=== PATIENT | male | born 1950 | race Caucasian/White ===

== ENCOUNTER 2017-01-14 23:29 | Emergency (ER) | payer MEDICARE, BC ==
[2017-01-15 02:48] LABS: Hematocrit 51 % (42-52); Hemoglobin 17.8 g/dl (14.0-18.0); Mean Corpuscular HGB Conc 35 g/dl (31-36); Mean Corpuscular Hemoglobin 35 pg (27-31); Mean Corpuscular Volume 101 fL (80-94); Mean Platelet Volume 10 um3 (7.4-10.4); Red Blood Count 5.06 10^6/ul (4.0-5.4); Red Cell Distribution Width 13 % (10.5-15); White Blood Count 7.1 10^3/ul (3.5-10.8)
[2017-01-15 02:54] LABS: Comments Flag Yes
[2017-01-15 02:55] LABS: Add Diff/Slide Review? Slide Review Added
[2017-01-15 03:06] LABS: Albumin 4.2 g/dL (3.2-5.2); BUN/Creatinine Ratio 17.4 (8-20); EGFR Non-African American 115.1 (>60); Globulin 2.9 g/dL (2-4); Potassium 4.1 mmol/L (3.5-5.0); Total Bilirubin 1.3 mg/dL (0.2-1.0); Total Protein 7.1 g/dL (6.4-8.9)
[2017-01-15] MEDS ORDERED: Ondansetron ODT TAB* 4 MG SL ONE (03:44)
[2017-01-15] MEDS ORDERED: NS 0.9% 500 ML* 500 ML IV ONE (04:06)
[2017-01-15 04:50] LABS: Albumin 3.9 g/dL (3.2-5.2); Calcium 8.6 mg/dL (8.6-10.3); EGFR African American 167.4 (>60); EGFR Non-African American 130.2 (>60); Globulin 2.5 g/dL (2-4); Potassium 3.5 mmol/L (3.5-5.0); Total Bilirubin 1.3 mg/dL (0.2-1.0); Total Protein 6.4 g/dL (6.4-8.9)
[2017-01-15] MEDS ORDERED: Ondansetron ODT TAB* 4 MG ONE (05:08)
[2017-01-15 05:12] VITALS: BP 119/61
[2017-01-15] MEDS ORDERED: Ondansetron ODT TAB* 4 MG SL PRN (05:13)
--- NOTE | 2017-01-20 12:01 | ED ---
Lanette Porter Thomas, scribed for Joselin Juarez MD on 01/15/17 at 0543 . GI/ HPI - HPI Summary HPI Summary: The pt is a 66 y/o male presenting to the ED c/o nausea and vomiting that began 16 hours ago but significantly worsened 10 hours ago. His last BM was this morning. Pt denies abd pain, CP, SOB, leg swelling, PEREZ, blurry vision, double vision, fever, chills, ear ache, neck pain, back pain, bloody stools dysuria, rashes, bruises, anxiety, and depression. He does not have a history of diabetes mellitus, although his glucose was measured at 323. - History of Current Complaint Chief Complaint: EDAbdPain Time Seen by Provider: 01/15/17 03:00 Stated Complaint: NAUSEA/VOMITING Hx Obtained From: Patient Onset/Duration: Started Hours Ago - 16 hours ago, Still Present, Worse Since - 10 hours ago Timing: Constant Current Severity: Moderate Pain Intensity: 0 Associated Signs and Symptoms: Positive: Other: - Nausea; NEGATIVE: abd pain, CP , SOB, leg swelling, PEREZ, blurry vision, double vision, fever, chills, ear ache, neck pain, back pain, bloody stools, dysuria, rashes, brsuises, anxiety, depression Aggravating Factor(s): Nothing Alleviating Factor(s): Nothing - Allergy/Home Medications Allergies/Adverse Reactions: Allergies Allergy/AdvReac Type Severity Reaction Status Date / Time No Known Allergies Allergy Verified 01/14/17 23:37 PMH/Surg Hx/FS Hx/Imm Hx Previously Healthy: No Endocrine/Hematology History: Denies: Hx Anticoagulant Therapy, Hx Diabetes, Hx Thyroid Disease Cardiovascular History: Denies: Hx Hypertension, Hx Pacemaker/ICD Respiratory History: Denies: Hx Asthma History: Denies: Hx Renal Disease Sensory History: Reports: Hx Cataracts - BILATERAL, Hx Contacts or Glasses - GLASSES, Hx Glaucoma - BILATERAL, STARTED ON DROPE 01/14/15 Opthamlomology History: Reports: Hx Cataracts - BILATERAL, Hx Contacts or Glasses - GLASSES, Hx Glaucoma - BILATERAL, STARTED ON DROPE 01/14/15 Neurological History: Denies: Hx Seizures Psychiatric History: Denies: Hx Substance Abuse - Surgical History Surgery Procedure, Year, and Place: 9 [facility]. 1965 APPENDECTOMY OPAL Hx Anesthesia Reactions: No Infectious Disease History: No Infectious Disease History: Denies: Hx Hepatitis, Hx Human Immunodeficiency Virus (HIV), Traveled Outside the [place] in Last 30 Days - Family History Known Family History: Positive: Other - Patient denies relevant FHx - Social History Alcohol Use: Daily Alcohol Amount: 6-8 BEERS MOST DAYS Substance Use Type: Reports: None Smoking Status (MU): Former Smoker Type: Cigarettes Amount Used/How Often: 2PPD 30YRS Length of Time of Smoking/Using Tobacco: 30 YRS Have You Smoked in the Last Year: No Review of Systems Negative: Fever, Chills Negative: Blurred Vision, Diplopia Negative: Sore Throat Negative: Chest Pain Negative: Shortness Of Breath, Cough Positive: Vomiting, Nausea. Negative: Abdominal Pain, Diarrhea, Other - bloody stools Negative: dysuria, hematuria Negative: Myalgia Negative: Rash, Bruising Negative: Headache Negative: Anxious, Depressed All Other Systems Reviewed And Are Negative: No Physical Exam - Summary Physical Exam Summary: Appearance: Alert, conversive, nontoxic appearing Skin: Warm, dry, no mottling, no rashes, no contusions HEENT: EOMI, PERRL, moist mucous membranes Neck: No masses on the neck, supple Respiratory: Clear to auscultation, breath sounds present, no rales, no rhonchi , no wheezes Cardiovascular: RRR, pulses are symmetrical in both lower and upper extremities Abdomen: Soft, non-tender Bowel Sounds: Present Musculoskeletal: No CVA tenderness, no obvious deformity, moving all extremities in a grossly normal manner Neurological: A&Ox3, CN II-XII Intact, moving all extremities symmetrically Psychiatric: Normal affect and mood Triage Information Reviewed: Yes Vital Signs On Initial Exam: Initial Vitals Temp Pulse Resp BP Pulse Ox 97.7 F 78 16 147/69 93 01/14/17 23:35 01/14/17 23:35 01/14/17 23:35 01/14/17 23:35 01/14/17 23:35 Vital Signs Reviewed: Yes - Edward Coma Scale Coma Scale Total: 15 Diagnostics - Vital Signs Vital Signs Temp Pulse Resp BP Pulse Ox 01/15/17 03:04 83 95 01/15/17 03:02 150/87 01/15/17 02:37 97.9 F 81 16 137/62 94 01/14/17 23:35 97.7 F 78 16 147/69 93 - Laboratory Lab Results: Lab Results 01/15/17 01/15/17 01/15/17 Range/Units 02:35 02:35 02:35 WBC 7.1 (3.5-10.8) 10^3/ul RBC 5.06 (4.0-5.4) 10^6/ul Hgb 17.8 (14.0-18.0) g/dl Hct 51 (42-52) % MCV 101 H (80-94) fL MCH 35 H (27-31) pg MCHC 35 (31-36) g/dl RDW 13 (10.5-15) % Plt Count 120 L (150-450) 10^3/ul MPV 10 (7.4-10.4) um3 Neut % (Auto) 85.8 H (38-83) % Lymph % (Auto) 11.8 L (25-47) % [place] % (Auto) 2.0 (1-9) % Eos % (Auto) 0 (0-6) % Baso % (Auto) 0.4 (0-2) % Absolute Neuts (auto) 6.1 (1.5-7.7) 10^3/ul Absolute Lymphs (auto) 0.8 L (1.0-4.8) 10^3/ul Absolute Monos (auto) 0.1 (0-0.8) 10^3/ul Absolute Eos (auto) 0 (0-0.6) 10^3/ul Absolute Basos (auto) 0 (0-0.2) 10^3/ul Absolute Nucleated RBC 0.01 10^3/ul Nucleated RBC % 0.1 Sodium 134 (133-145) mmol/L Potassium 4.1 (3.5-5.0) mmol/L Chloride 96 L (101-111) mmol/L Carbon Dioxide 29 (22-32) mmol/L Anion Gap 9 (2-11) mmol/L BUN 12 (6-24) mg/dL Creatinine 0.69 (0.67-1.17) mg/dL Est GFR ( Amer) 148.0 (>60) Est GFR (Non-Af Amer) 115.1 (>60) BUN/Creatinine Ratio 17.4 (8-20) Glucose 323 H (70-100) mg/dL Lactic Acid 1.5 (0.5-2.0) mmol/L Calcium 9.0 (8.6-10.3) mg/dL Total Bilirubin 1.30 H (0.2-1.0) mg/dL AST 21 (13-39) U/L ALT 32 (7-52) U/L Alkaline Phosphatase 85 (34-104) U/L Total Protein 7.1 (6.4-8.9) g/dL Albumin 4.2 (3.2-5.2) g/dL Globulin 2.9 (2-4) g/dL Albumin/Globulin Ratio 1.4 (1-3) Result Diagrams: 01/15/17 02:35 01/15/17 04:20 Lab Statement: Any lab studies that have been ordered have been reviewed, and results considered in the medical decision making process. Re-Evaluation - Re-Evaluation First Eval Re-Evaluation Time: 05:10 Change: Improved Comment: He is up and walking and read to be discharged. GIGU Course/Dx - Course Assessment/Plan: Patient presents with nausea and vomiting. He was given a Zofran prescription and discharged home. - Diagnoses Provider Diagnoses: Nausea & vomiting Discharge - Discharge Plan Condition: Stable Disposition: HOME Prescriptions: Ondansetron ODT TAB* [Zofran 4 MG Odt TAB*] 4 mg PO Q8H PRN #20 tab.odt PRN Reason: Nausea Patient Education Materials: Acute Nausea and Vomiting (ED) Referrals: Non Staff,Doctor [Primary Care Provider] - Additional Instructions: Take the zofran as instructed. return if worse or any new symptoms. It is important to follow up with your primary care physician. The documentation as recorded by the Lanette ramirez Thomas accurately reflects the service I personally performed and the decisions made by , Joselin Juarez MD.
== END 2017-01-15 05:26 | disposition home or self-care (01) ==
LOC: ED 23:29
DX: R11.2 Nausea with vomiting, unspecified (principal)
CPT/HCPCS: 36415; 80053; 83605; 85025; 99284; A9270-GY

== ENCOUNTER → 2018-11-14 05:46 | Day surgery (SDC) | payer MEDICARE, BC ==
[~2018-11-14 05:46] MED LIST: Acetaminophen TAB* 325 MG PO PRN; Buffered Lidocaine 1% SYRIN* 1 ML/SYRINGE INTRADERM ONE; Famotidine IV* 10 MG/ML 2 ML (20 mg) IV ONE; Famotidine IV* 10 MG/ML 2 ML (20 mg) ONE; Ketorolac INJ* 30 MG/ML 1 ML VIAL ONE; Lactated Ringers 1000 ML Bag* 1,000 ML IV SCH; Lidocaine 1% w EPI 1:100,000* MDV 20 ML VIAL ONE; Lidocaine 2% PF * 5 ML VIAL ONE; Midazolam* 1 MG/ML 5 ML VIAL (5 MG) ONE; Naloxone* 0.4 MG/ML 1 ML VIAL IV PRN; Ondansetron INJ* 2 MG/ML VIAL ONE; Propofol* 10 MG/ML 20 ML BTL ONE; ceFAZolin 2 GM in NS PREMIX(*) 2 GM/100 ML BAG IVPB ONE; fentaNYL* 50 MCG/ML 2 ML VIAL (100 MCG VIAL) ONE
--- NOTE | 2018-11-14 08:23 | OP ---
Operative Report - Blank - Operative Report Date of Operation: 11/14/18 Note: Pre-OP Diagnoses: rectal cancer Post-op Diagnosis: same Procedure: Insertion of powerport Surgeon: Eliezer Asst: none Anethesia: local, YVES Sharpe EBL: minimal IVF: 800cc LR Specimen: none Drains: none 8Fr single lumen power port via R SCV
[2018-11-14 09:12] VITALS: BP 121/56
--- NOTE | 2018-11-14 11:00 | OP ---
CC: Dr. Ne Roberson; Kevin King NP * DATE OF OPERATION: 11/14/18 - [facility] DATE OF : 52 SURGEON: Dr. Martins. PRECINCT POLICE SERGEANT: None. ANESTHESIOLOGIST: Dr. Sharpe. ANESTHESIA: Local MAC anesthesia. PRE-OP DIAGNOSIS: Rectal cancer. POST-OP DIAGNOSIS: Rectal cancer. OPERATIVE PROCEDURE: Insertion of PowerPort. ESTIMATED BLOOD LOSS: Minimal blood loss. FLUIDS: 800 cc of crystalloid fluid given. SPECIMEN: None. IMPLANTS: 8-Namibian PowerPort placed via the right subclavian vein. DESCRIPTION OF PROCEDURE: The patient was identified in the preoperative area. Consent was signed. He was marked, brought to the operating room and placed on the operating table in the supine position. Preoperative antibiotics were given. Sequential devices were placed on bilateral lower extremities. General sedation was given and the patient's right upper chest and neck were prepped and draped in standard surgical fashion. Time-out was performed. After injection of lidocaine infraclavicularly on the right, we tried to access the subclavian vein. At first, we did enter in to an artery. Needle was removed, and we then inserted the needle again without achieving access in the appropriate positioning, and finally on the third attempt, we were able to accesses the subclavian vein. Wire was inserted and appropriately positioned in the superior vena cava as noted on fluoroscopy. We then made an incision inferior to the wire, made a pocket for the PowerPort. We then ivan the wire out through this separate incision, dilated the vein under fluoroscopy and placed the split-away catheter in. The 8-Namibian tubing was inserted and cut to size, assuring its sizing under fluoroscopy in the appropriate positioning. It was then attached to the pre-flushed PowerPort along with the hub and then placed in the pocket and sutured laterally and medially. The wound was irrigated and reapproximated with 3-0 Vicryl followed by 4-0 Monocryl subcuticular sutures. Steri-Strips and sterile dressing were applied. We did inject heparinized saline into the port after aspiration of blood. The patient tolerated the procedure well, and was transferred back in stable condition. [id number]/[facility] #: [id number] [facility]
== END | disposition home or self-care (01) ==
LOC: OR 05:46
PROVIDERS: ATTEND Surgery
DX: C20 Malignant neoplasm of rectum (principal); E11.9 Type 2 diabetes mellitus without complications; Z87.891 Personal history of nicotine dependence; E78.5 Hyperlipidemia, unspecified
CPT/HCPCS: 71045; 76000; C1788; J0690; J1642; J1885; J2250; J2405; J2704; J3010

== ENCOUNTER 2018-12-27 15:39 | Inpatient (IN) | payer MEDICARE, BC ==
[2018-12-27] MEDS ORDERED: Acetaminophen TAB* 325 MG PO PRN (16:47)
--- OUTSIDE RECORDS SUMMARY | 2018-12-27 16:51 | XMS REPORT | Continuity of Care Document ---
:1950 External Reference #:[id number] Author Name Tu Martins MD, FACS (transmitted by agent of provider She Proctor) Address [address] [place] [address] Care Team Providers Name Role Phone Georgina Childress MD - Internal Medicine Care Team Information Supervisor Body Assembly Problems Active Problems Provider Date Type 2 diabetes mellitus Kevin King NP Onset: 05/11/2017 Hyperlipidemia Kevin King NP Onset: 05/11/2017 Social History Type Date Description Comments Sex Unknown ETOH Use Currently consumes 1-2 drinks a week alcohol Tobacco Use Start: Unknown End: Patient is a former Quit 2006 Unknown smoker Recreational Drug Use Denies Drug Use Smoking Status Reviewed: 11/12/18 Patient is a former Quit 2006 smoker Exercise Type/Frequency Does not exercise Allergies, Adverse Reactions, Alerts Description No Known Drug Allergies Medications Active Medications SIG Qnty Indications Ordering Date Provider Atorvastatin Calcium Take 1 Tablet AT 90tabs E78.5 Kevin King NP 2017 Bedtime 20mg Tablets Tramadol HCL 1-2 tablets by mouth Unknown 50mg every 6 hours as Tablets needed pain Miralax take 1 packet daily Unknown [id number] Packet as needed for constipation Immunizations CPT Code Status Date Vaccine Reaction Lot # [id number] Given 05/09/2018 Pneumonia Vaccine No immediate reaction [id number] Given 05/08/2017 Pneumococcal Conjugate No immediate [id number] Vaccine 13 Valent For reaction...jh Intramuscular Use 95660 Given 02/10/2017 Influenza Virus Vaccine, [id number] Quadrivalent, Split, Preservative Free Vital Signs Date Vital Result Comment 11/12/2018 2:23pm Height 69.25 inches 5'9.25" Weight 174.00 lb Heart Rate 83 /min BP Systolic Sitting 98 mmHg BP Diastolic Sitting 50 mmHg Respiratory Rate 14 /min Body Temperature 97.2 F BMI (Body Mass Index) 25.5 kg/m2 05/09/2018 9:38am Height 69.25 inches 5'9.25" Weight 185.50 lb Heart Rate 74 /min BP Systolic 126 mmHg BP Diastolic 70 mmHg Body Temperature 97.0 F O2 % BldC Oximetry 97 % BMI (Body Mass Index) 27.2 kg/m2 Results Test Date Facility Test Result H/L Range Note CBC Auto 11/09/2018 [facility] White Blood 4.5 10^3/uL Normal 3.5-10.[address] [place] [address] [phone] Red Blood Count 4.04 10^6/uL Low 4.18-5.48 Hemoglobin 12.2 g/dL Low 14.0-18.0 Hematocrit 36 % Low 42-52 Mean Corpuscular Volume 89 fL Normal 80-94 Mean Corpuscular Hemoglobin 30 pg Normal 27-31 Mean Corpuscular HGB Conc 34 g/dL Normal 31-36 Red Cell Distribution Width 15 % Normal 10-15 Platelet Count 114 10^3/uL Low 150-450 Mean Platelet Volume 10.8 fL High 7.4-10.4 Abs Neutrophils 2.9 10^3/uL Normal 1.5-7.7 Abs Lymphocytes 1.0 10^3/uL Normal 1.0-4.8 Abs Monocytes 0.4 10^3/uL Normal 0-0.8 Abs Eosinophils 0.1 10^3/uL Normal 0-0.6 Abs Basophils 0.0 10^3/uL Normal 0-0.2 Abs Nucleated RBC 0.0 10^3/uL Granulocyte % 65.5 % Lymphocyte % 23.4 % Monocyte % 8.1 % Eosinophil % 2.1 % Basophil % 0.9 % Nucleated Red Blood Cells % 0.1 Comp Metabolic 11/09/2018 [facility] Sodium 140 mmol/L Normal 135-[address] [place] [address] [phone] Potassium 3.8 mmol/L Normal 3.5-5.0 Chloride 102 mmol/L Normal 101-111 Co2 Carbon Dioxide 32 mmol/L Normal 22-32 Anion Gap 6 mmol/L Normal 2-11 Calcium 8.6 mg/dL Normal 8.6-10.3 Albumin 3.9 g/dL Normal 3.2-5.2 Total Bilirubin 0.60 mg/dL Normal 0.2-1.0 Glucose 139 mg/dL High 70-100 Blood Urea Nitrogen 16 mg/dL Normal 6-24 Creatinine 0.77 mg/dL Normal 0.67-1.17 BUN/Creatinine Ratio 20.8 High 8-20 Total Protein 5.9 g/dL Low 6.4-8.9 Globulin 2.0 g/dL Normal 2-4 Albumin/Globulin Ratio 2.0 Normal 1-3 Alkaline Phosphatase 95 U/L Normal 34-104 Alt 17 U/L Normal 7-52 Ast 13 U/L Normal 13-39 Egfr Non- 100.8 >60 Egfr 121.9 >60 1 Iron & Iron Binding 11/09/2018 [facility] Iron 24 g/dL Low 50-[address] [place] [address] [phone] Unsaturated Iron Binding < 376 g/dL Total Iron Binding Capacity 391 g/dL Normal 250-450 Transferrin 279 mg/dL Normal 203-362 % Iron Saturation 6 % Low 15-55 Laboratory 11/09/2018 [facility] Carcinoembryonic 38.0 High 0.1-5.0 2 test finding [address] Antigen Cea ng/[place] [address] [phone] Ferritin 9.1 ng/mL Low 24-336 Laboratory test 10/19/2018 [facility] Hemoglobin A1c 5.1 % Normal 4.0-5.[address] (Glyco HGB) [place] [address] [phone] Lipid Profile 10/19/2018 [facility] Triglycerides 69 4 (Trig/Chol/HDL) [address] mg/[place] [address] [phone] Cholesterol 136 mg/dL 5 HDL Cholesterol 66.7 mg/dL 6 LDL Cholesterol 56 mg/dL 7 1 Because ethnic data is not always readily available, this report includes an eGFR for both -Americans and non- Americans. The National Kidney Disease Education Program (NKDEP) does not endorse the use of the MDRD equation for patients that are not between the ages of 18 and 70, are , have extremes of body size, muscle mass, or nutritional status, or are non- or non-. According to the National Kidney Foundation, irrespective of diagnosis, the stage of the disease is based on the level of kidney function: Stage Description GFR(mL/min/1.73 m(2)) 1 Kidney damage with normal or decreased GFR 90 2 Kidney damage with mild decrease in GFR 60-89 3 Moderate decrease in GFR 30-59 4 Severe decrease in GFR 15-29 5 Kidney failure <15 (or dialysis) 2 Nonsmokers: < 2.9 ng/mL Some smokers may have elevated CEA, usually <5.0 ng/mL. Serum markers are not specific for malignancy, and values may vary by method. The testing method is an immunoenzymatic assay coal trammer by Ruby Ribbon performed on Ruby Ribbon DXI 600. Do not interpret serum CEA levels as absolute evidence of the presence or the absence of malignant disease. Use serum CEA in conjunction with information from the clinical evaluation of the patient and other diagnostic procedures. 3 Therapeutic target for the treatment of diabetes mellitus patients is <7% HBA1C, and in selective patients <6.0%. Please refer to [place] [employer] diabetic care guidelines for further information. 4 Desirable: <150 Borderline High: 150-199 High: 200-499 Very High: >500 5 Desirable: <200 Borderline High: 200-239 High: >239 6 Low: <40 Desirable: 40-60 High: >60 7 Desirable: <100 Near Optimal: 100-129 Borderline High: 130-159 High: 160-189 Very High: >189 Procedures Description No Information Available Medical Devices Description No Information Available Encounters Description No Information Available Assessments Date Code Description Provider 11/12/2018 C20 Malignant neoplasm of rectum Tu Martins MD, FACS Plan of Treatment Future Appointment(s):11/22/2018 11:30 am - Tu Martins MD, FACS at [facility]11/14/2018 7:30 am - Tu Martins MD, FACS at [facility]11/12/2018 - Tu Martins MD, [id number] Malignant neoplasm of rectumFollow up:operating room Functional Status Description No Information Available Mental Status Description No Information Available Referrals Refer to Reason for Referral Status Appt Date Ne Roberson MD [address] [place] [phone]
--- OUTSIDE RECORDS SUMMARY | 2018-12-27 16:51 | XMS REPORT | Continuity of Care Document ---
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 Active Problems Provider Date Type 2 diabetes mellitus Kevin King NP Onset: 05/11/2017 Hyperlipidemia Kevin King NP Onset: 05/11/2017 Social History Type Date Description Comments Sex Unknown ETOH Use Currently consumes 1-2 drinks a week alcohol Tobacco Use Start: Unknown End: Patient is a former Quit 2006 Unknown smoker Recreational Drug Use Denies Drug Use Smoking Status Reviewed: 11/22/18 Patient is a former Quit 2006 smoker [...] Code Status Date Vaccine Reaction Lot # [id number] Given 05/09/2018 Pneumonia Vaccine No immediate reaction [id number] Given 05/08/2017 Pneumococcal Conjugate No immediate [id number] Vaccine 13 Valent For reaction...jh Intramuscular Use [id number] Given 02/10/2017 Influenza Virus Vaccine, [id number] Quadrivalent, Split, Preservative Free Vital Signs Date Vital Result Comment 11/22/2018 11:25am Heart Rate 84 /min BP Systolic 138 mmHg BP Diastolic 64 mmHg Respiratory Rate 16 /min Body Temperature 97.2 F 11/12/2018 2:23pm Height 69.25 inches 5'9.25" Weight 174.00 lb Heart Rate 83 /min BP Systolic Sitting 98 mmHg BP Diastolic Sitting 50 mmHg Respiratory Rate 14 /min Body Temperature 97.2 F BMI (Body Mass Index) 25.5 kg/m2 Results Test Date Facility Test Result H/L Range Note Leukemia/Lymp 11/15/2018 [facility] Path Interpretation TNP daniele Flow [address] 2-[address] [place] [address] [phone] Path Interpret 9-15 Marker TNP Path Interpret > 16 Marker (SEE NOTE) 1 Myelodysplastic 11/15/2018 [facility] FMDS Specimen Bone Marrow Syndrome,Fish [address] [place] [address] [phone] FMDS Disclaimer See Comment 2 FMDS Released By See Comment 3 FMDS Reason for Referral See Comment 4 FMDS Method See Comment 5 FMDS Result See Comment 6 FMDS Result Summary Normal FMDS Result Table See Comment 7 FMDS Interpretation See Comment 8 CBC Auto 11/15/2018 [facility] White Blood 5.1 10^3/uL Normal 3.5-10.[address] [place] [address] [phone] Red Blood Count 4.07 10^6/uL Low 4.18-5.48 Hemoglobin 12.0 g/dL Low 14.0-18.0 Hematocrit 36 % Low 42-52 Mean Corpuscular Volume 89 fL Normal 80-94 Mean Corpuscular Hemoglobin 30 pg Normal 27-31 Mean Corpuscular HGB Conc 33 g/dL Normal 31-36 Red Cell Distribution Width 14 % Normal 10-15 Platelet Count 113 10^3/uL Low 150-450 Mean Platelet Volume 9.2 fL Normal 7.4-10.4 Abs Neutrophils 3.3 10^3/uL Normal 1.5-7.7 Abs Lymphocytes 1.2 10^3/uL Normal 1.0-4.8 Abs Monocytes 0.4 10^3/uL Normal 0-0.8 Abs Eosinophils 0.1 10^3/uL Normal 0-0.6 Abs Basophils 0.0 10^3/uL Normal 0-0.2 Abs Nucleated RBC 0.0 10^3/uL Granulocyte % 65.1 % Lymphocyte % 23.6 % Monocyte % 8.8 % Eosinophil % 1.7 % Basophil % 0.8 % Nucleated Red Blood Cells % 0.0 Laboratory test 11/14/2018 [facility] Point of 123 mg/dL High 70-100 [address] [place] [address] [phone] Laboratory test 11/13/2018 [facility] Point of 125 mg/dL High 70-[address] [place] [address] [phone] CBC Auto Diff 11/09/2018 [facility] White Blood 4.5 Normal 3.5 -10.[address] Count 10^3/[place] [address] [phone] Red Blood Count 4.04 10^6/uL Low 4.18-5.48 [...] Blood Cells % 0.1 Comp Metabolic 11/09/2018 [facility] Sodium 140 mmol/L Normal 135-[address] [place] [address] [phone] Potassium 3.8 mmol/L Normal 3.5-5.0 Chloride 102 [...] Egfr Non- 100.8 >60 Egfr 121.9 >60 11 Iron & Iron Binding 11/09/2018 [facility] Iron 24 g/dL Low 50-[address] [place] [address] [phone] Unsaturated Iron Binding < 376 g/dL Total Iron Binding Capacity 391 g/dL Normal 250-450 Transferrin 279 mg/dL Normal 203-362 % Iron Saturation 6 % Low 15-55 Laboratory 11/09/2018 [facility] Carcinoembryonic 38.0 High 0.1-5.0 [address] Antigen Cea ng/[place] [address] [phone] Ferritin 9.1 ng/mL Low 24-336 Protein 11/09/2018 [facility] Total 5.9 Abnormal 6.3 - Electrophoresis [address] Protein(Pep) g/dL 7.9 [place] [address] [phone] Albumin 3.2 g/dL Abnormal 3.4-4.7 Alpha-1 Globulin 0.2 g/dL 0.1-0.3 Alpha-2 Globulin 0.9 g/dL 0.6-1.0 Beta Globulin 0.9 g/dL 0.7-1.2 Gamma Globulin 0.7 g/dL 0.6-1.6 Albumin/Globulin Ratio 1.19 Impression See Comment 13 Laboratory 10/19/2018 [facility] Hemoglobin A1c 5.1 % Normal 4.0-5.6 14 test finding [address] (Glyco HGB) [place] [address] [phone] Lipid Profile 10/19/2018 [facility] Triglycerides 69 15 (Trig/Chol/HDL [address] mg/dL ) [place] [address] [phone] Cholesterol 136 mg/dL 16 HDL Cholesterol 66.7 mg/dL 17 LDL Cholesterol 56 mg/dL 18 1 FINAL DIAGNOSIS: Specimen Source: Bone marrow Flow cytometry immunophenotypic analysis: Surface Ig negative B cell population (1.2%) of undetermined significance Interpretative data: Blasts: 2% of gated events Lymphocytes: 10% of gated events B-cells: kappa:lambda within normal limits, 12% of lymphs surface Ig negative T-cells/NK cells: No aberrant population detected. Plasma cells: polyclonal Markers tested: CD3, CD10, CD16, CD19, CD34, CD45, kappa surface light chains, lambda surface light chains, 7-AAD, CD5, CD11c, CD20, CD200, CD22, CD23, CD38, CD45, CD103, CD38, CD138, kappa cytoplasmic light chains, lambda cytoplasmic light chains. Quality Assessment: Acceptable Viability: Acceptable Viable lymphocytes (7-AAD): 89% Specimen received within validated guidelines. A Waite-Giemsa stained slide prepared from the flow cytometry specimen was examined for quality purposes. Electronically signed by: Kimberly Rose MD 11/20/18 8177 Technical component performed by: [facility] [place] [address] Furniture Technician: Pb Arango II, MD, PhD. 2 Applicable to Analyte Specific Reagent (ASR) and Laboratory Developed Tests (LDT). This test was developed and its performance characteristics determined by [facility] in a manner consistent with CLIA requirements. It has not been cleared or approved by the U.S. Food and Drug Administration. This FISH test does not rule out other chromosome abnormalities. 3 RESULT: Renetta Spencer M.D. Test Performed by: [place] [id number] Spout Tender: Pb Arango M.D. Ph.D.; CLIA# [id number] 4 RESULT: C20 malignant neoplasm of rectum 5 Locus and probes [Strategy;#Nuclei;Class] 3q21(RPN1),3q26.2(MECOM) [DFISH;500;LDT] 5p15.2(L0D833),5q31(EGR1) [COPY#;200;ASR] 7CEN(D7Z1),7q31(K2Z044) [COPY#;200;ASR] 8CEN(D8Z2),8q24.1(MYC) [COPY#;200;ASR] 11q23(5'MLL[KMT2A],3'MLL[KMT2A]) [BAP;200;ASR] 17p13(TP53),17CEN(D17Z1) [COPY#;200;ASR] 20q12(K36G897),20qter [COPY#;200;ASR] Probe strategies include: DFISH=dual color, double fusion; BAP=break-apart probe; COPY#=region gain and loss. 6 RESULT: Interphase FISH is normal for all loci studied. 7 Abnormality Name Result Abn% Cutoff% inv(3) RPN1/MECOM fusion Normal <0.6 -5q31(D1E649p2,EGR1x1) Normal <9.5 -5(P7A936,EGR1)x1 Normal <3.5 -7q31(D7Z1x2,P9E442b0) Normal <4.5 -7(D7Z1,G0V669)x1 Normal <3.5 +8(D8Z2,MYC)x3 Normal <2.5 11q23(MLL sep) Normal <4.0 -17p13.1(TP53x1,C94D5c7) Normal <9.5 -17(TP53,D17Z1)x1 Normal <5.5 -20q12(F94O412o5,22cygcj0) Normal <9.5 8 RESULT: This result is within normal limits for the MDS FISH panel. 9 Kier Drier: [id number] 10 Kier Drier: [id number] 11 Because ethnic data is not always readily [...] 15-29 5 Kidney failure <15 (or dialysis) 12 Nonsmokers: < 2.9 ng/mL Some smokers may have elevated CEA, usually <5.0 ng/mL. Serum markers are not specific for malignancy, and values may vary by method. The testing method is an immunoenzymatic assay music internship by [employer] performed on Claudine [place] DXI 600. Do not interpret serum CEA levels as absolute evidence of the presence or the absence of malignant disease. Use serum CEA in conjunction with information from the clinical evaluation of the patient and other diagnostic procedures. 13 RESULT: No apparent monoclonal protein on serum electrophoresis. Test Performed by: [facility] [address] [place] [address] Spout Tender: Pb Arango M.D. Ph.D.; CLIA# [id number] 14 Therapeutic target for the treatment of diabetes mellitus patients is <7% HBA1C, and in selective patients <6.0%. Please refer to [place] [employer] diabetic care guidelines for further information. 15 Desirable: <150 Borderline High: 150-199 High: 200-499 Very High: >500 16 Desirable: <200 Borderline High: 200-239 High: >239 17 Low: <40 Desirable: 40-60 High: >60 18 Desirable: <100 Near Optimal: 100-129 Borderline High: 130-159 High: 160-189 Very High: >189 Procedures Description No Information Available Medical Devices Description No Information Available Encounters Description No Information Available Assessments Date Code Description Provider 11/13/2018 C20 Malignant neoplasm of rectum Tu Martins MD, FACS 11/12/2018 C20 Malignant neoplasm of rectum Tu Martins MD, FACS Plan of Treatment No Information Available Functional Status Description No Information Available Mental Status Description No Information Available Referrals Refer to Reason for Referral Status Appt Date Ne Roberson MD Sent 11/09/2018 [address] [place] [id number] [phone]
[2018-12-27] MEDS ORDERED: Vancomycin per Pharmacy* NOTE FOLLOW UP SCH ×2 (17:00→18:10)
[2018-12-27] MEDS ORDERED: Zosyn per Pharmacy* NOTE FOLLOW UP SCH (17:00)
[2018-12-27] MEDS ORDERED: ZOSYN 3.375 GM x ONE DOSE over 30 miuntes IVPB ×2 (17:30)
[2018-12-27] MEDS: NS 0.9% 1000 ML** 1,000 ML IV SCH (17:40)
[2018-12-27] MEDS ORDERED: Vancomycin(*) 1,250 MG in NS 0.9% 250 ML* 250 ML IVPB ONE (18:00)
[2018-12-27] MEDS: KCL 20 MEQ/100 ML IVPREMIX* 20 MEQ/100 ML BAG IV SCH ×2 (18:03→21:34)
[2018-12-27] MEDS: Atorvastatin* 20 MG TAB PO SCH (18:43)
[2018-12-27] MEDS: Enoxaparin(*) 40 MG/0.4 ML SYR SUBCUT SCH (18:44)
[2018-12-27] MEDS: ZOSYN 3.375 GM Q8H per EXTENDED INFUSION IVPB SCH ×2 (21:39)
[2018-12-28] MEDS: ZOSYN 3.375 GM Q8H per EXTENDED INFUSION IVPB SCH ×6 (05:30→21:08)
[2018-12-28 06:01] LABS: Albumin 3.2 g/dL (3.2-5.2); Albumin/Globulin Ratio 1.2 (1-3); BUN/Creatinine Ratio 14.5 (8-20); Calcium 8.4 mg/dL (8.6-10.3); EGFR African American 123.8 (>60); EGFR Non-African American 102.3 (>60); Globulin 2.6 g/dL (2-4); Potassium 3.5 mmol/L (3.5-5.0); Total Bilirubin 0.7 mg/dL (0.2-1.0); Total Protein 5.8 g/dL (6.4-8.9)
[2018-12-28 06:38] LABS: ABS Eosinophils 0.2 10^3/ul (0-0.6); ABS Lymphocytes 0.2 10^3/ul (1.0-4.8); ABS Monocytes 0.5 10^3/ul (0-0.8); ABS Neutrophils 3.8 10^3/ul (1.5-7.7); Hematocrit 33 % (42-52); Hemoglobin 11.1 g/dL (14.0-18.0); Lymphocyte % 3.9 %; Mean Corpuscular HGB Conc 34 g/dL (31-36); Mean Corpuscular Hemoglobin 32 pg (27-31); Mean Corpuscular Volume 95 fL (80-94); Mean Platelet Volume 9.2 fL (7.4-10.4); Platelet Count 96 10^3/uL (150-450); Red Blood Count 3.49 10^6 /uL (4.18-5.48); Red Cell Distribution Width 26 % (10-15); White Blood Count 4.7 10^3/uL (3.5-10.8)
[2018-12-28] MEDS: Vancomycin(*) 1,250 MG in NS 0.9% 250 ML* 250 ML IVPB SCH ×2 (09:18→20:00)
[2018-12-28] MEDS: traMADol TAB* 50 MG PO PRN ×2 (09:28→22:38)
[2018-12-28] MEDS: Loperamide CAP* 2 MG PO PRN ×2 (09:28→22:39)
[2018-12-28] MEDS: Cyclobenzaprine TAB* 10 MG PO PRN ×2 (09:29→22:39)
[2018-12-28] MEDS ORDERED: NS 0.9% 500 ML* 500 ML IV ONE (17:00)
--- NOTE | 2018-12-28 17:17 | PN ---
Progress Note - Progress Note Date of Service: 12/28/18 SOAP: Subjective: [Reports feeling well. Remained afebrile overnight. ] Objective: [ Vital Signs: Temp Pulse Resp BP Pulse Ox 98.9 F 85 18 102/50 94 12/28/18 11:15 12/28/18 11:15 12/28/18 12:34 12/28/18 11:15 12/28/18 11:15 Acetaminophen (Tylenol Tab*) 650 mg PO Q6H PRN PRN Reason: PAIN - MILD Last Admin: 12/28/18 09:29 Dose: 650 mg Atorvastatin Calcium (Lipitor*) 20 mg PO QPM [facility] Last Admin: 12/27/18 18:43 Dose: 20 mg Cyclobenzaprine HCl (Flexeril Tab*) 10 mg PO TID PRN PRN Reason: rectal spasms Last Admin: 12/28/18 09:29 Dose: 10 mg Enoxaparin Sodium (Lovenox(*)) 40 mg SUBCUT Q24H [facility] Last Admin: 12/27/18 18:44 Dose: 40 mg Sodium Chloride (Ns 0.9% 1000 Ml) 1,000 mls @ 50 mls/hr IV .PER RATE [facility] Last Admin: 12/27/18 17:40 Dose: 50 mls/hr Piperacillin Sod/Tazobactam (Sod 3.375 gm/ Sodium Chloride) 100 mls @ 25 mls/ hr IVPB Q8H [facility] Last Admin: 12/28/18 13:31 Dose: 25 mls/hr Vancomycin HCl 1,250 mg/ (Sodium Chloride) 250 mls @ 166.667 mls/hr IVPB Q12H [facility] Last Admin: 12/28/18 09:18 Dose: 166.667 mls/hr Sodium Chloride (Ns 0.9% 500 Ml*) 500 mls @ 1,000 mls/hr IV ONCE ONE Stop: 12/28/18 17:29 Last Admin: 12/28/18 16:11 Dose: 1,000 mls/hr Loperamide HCl (Imodium Cap*) 2 mg PO Q6HR PRN PRN Reason: DIARRHEA Last Admin: 12/28/18 09:28 Dose: 2 mg Pharmacy Consult (Zosyn Per Pharmacy*) 1 note FOLLOW UP .ZOSYN PER PHARMACY [facility] Pharmacy Consult (Vancomycin Per Pharmacy*) 1 note FOLLOW UP .VANC PER PHARMACY [facility]; Protocol Pharmacy Profile Note (Vancomycin Trough Check) 1 note FOLLOW UP 0600 ONE Stop: 12/29/18 06:01 Tramadol HCl (Ultram*) 50 mg PO Q6H PRN PRN Reason: PAIN - MODERATE Last Admin: 12/28/18 09:28 Dose: 50 mg Laboratory Results - last 24 hr 12/28/18 12/28/18 05:29 05:29 WBC 4.7 RBC 3.49 L Hgb 11.1 L Hct 33 L MCV 95 H MCH 32 H MCHC 34 RDW 26 H Plt Count 96 L MPV 9.2 Neut % (Auto) 81.2 Lymph % (Auto) 3.9 Sebastian % (Auto) 10.4 Eos % (Auto) 4.0 Baso % (Auto) 0.5 Absolute Neuts (auto) 3.8 Absolute Lymphs (auto) 0.2 L Absolute Monos (auto) 0.5 Absolute Eos (auto) 0.2 Absolute Basos (auto) 0.0 Absolute Nucleated RBC 0.0 Nucleated RBC % 0.0 Hem Pathologist Commnt Sodium 139 Potassium 3.5 Chloride 106 Carbon Dioxide 28 Anion Gap 5 BUN 11 Creatinine 0.76 Est GFR ( Amer) 123.8 Est GFR (Non-Af Amer) 102.3 BUN/Creatinine Ratio 14.5 Glucose 101 H Calcium 8.4 L Total Bilirubin 0.70 AST 13 ALT 13 Alkaline Phosphatase 78 Total Protein 5.8 L Albumin 3.2 Globulin 2.6 Albumin/Globulin Ratio 1.2 Exam: Gen: Well appearing 68 yo male in NAD HEENT: MMM CV: RRR, no m/r/g Resp: CTA, no w/c/r Abd: soft, nonTTP Ext: R GT is erythematous and edematous, but erythema previously outlined on the foot as nearly resolved. Large, open lesion over the plantar aspect of the R great toe with serous drainage.] Assessment: [This is a 68 yo male with rectal CA receiving concurrent chemotherapy and radiation who presented to the oncology clinic for routine followup found to have a large open lesion on his R GT and associated cellulitis. He was admitted for IV abx with noted clinical improvement.] Plan: [1. R foot cellulitis - cont broad spectrum coverage with Vanco/Zosyn - culture collected from open lesion on toe by ID - ID recommendations appreciated 2. Rectal CA - prematurely finished chemotherapy - monitor for neutropenia - complete XRT as planned for 1 additional week 3. DM neuropathy Dispo: cont IV abx for a minimum of an additional 24 hours, depending on degree of clinical improvement plan dc in 24-48 hours for a total of 2 weeks of oral abx]
[2018-12-28] MEDS: NS 0.9% 1000 ML** 1,000 ML IV SCH (17:20)
[2018-12-28] MEDS: Atorvastatin* 20 MG TAB PO SCH (17:39)
[2018-12-28] MEDS: Enoxaparin(*) 40 MG/0.4 ML SYR SUBCUT SCH (17:40)
--- NOTE | 2018-12-28 18:15 | CONS ---
CONSULTATION REPORT: DATE OF CONSULT: 12/28/18 PRIMARY CARE PROVIDER: Kevin King NP PROVIDER REQUESTING CONSULTATION: Ruchi Stahl NP CONSULTING SERVICE: Infectious Disease. PROVIDER: Aline Taylor NP ATTENDING PROVIDER: Dr. Edmundo Gonzalez * (dictated by ALINE TAYLOR NP). REASON FOR CONSULT: Cellulitis and foot ulcer in the setting of chemotherapy. IMPRESSION: 1. Cellulitis of the right foot. This appears to be secondary to a blister possibly caused from the 5-FU that he has been taking for rectal cancer. There is associated erythema. The patient has been afebrile with no leukocytosis. There is moderate amount of drainage to the wound. 2. Left first toe diabetic ulcer. No signs of infection. 3. Diabetes mellitus with peripheral neuropathy. Not currently on medications. 4. Rectal cancer. Currently receiving 5-FU and radiation therapy. PLAN/RECOMMENDATIONS: Recommend continuing vancomycin and Zosyn. I have obtained a wound culture today. I recommend continuing the current antibiotics for at least 24 hours to even 48 more hours depending on how he is responding to the antibiotics with further resolution of the erythema, at which point he can be transitioned to an oral antibiotic such as Augmentin to complete a 14- day course. If this is in fact a MRSA infection, then he should be placed on appropriate antibiotic or other antibiotics according to the culture results and sensitivities if he is ready to be discharged over the weekend. In terms of dressing changes, the left first toe ulcer should be dressed with antibiotic ointment followed by a Band-Aid and changed daily. For the right toe ulcer, recommend using calcium alginate followed by either rolled gauze or a small stockinette to cover the toe and hold the alginate in place. This should be changed depending on the drainage. It may need to be changed daily for a few days and once the drainage has been decreased it can be changed either every other day or every third day. If the dressing is sticking, can use oil emulsion prior to the calcium alginate. HISTORY OF PRESENT ILLNESS: Mr. Pizano is a 68-year-old male with past medical history significant for rectal cancer, currently receiving radiation and chemotherapy; diabetes mellitus; peripheral neuropathy; history of alcohol abuse , who states that he has been in his usual state of health receiving chemotherapy and radiation. He states that on [place] he had noticed what appeared to be a callus that had fallen off his right first toe. He noticed that the wound had looked a little deep, so he had been using antibiotic ointment and a Band-Aid. He knew he had an appointment with Oncology on , so he was waiting for that appointment to be evaluated. As the week went by, he noticed that the toe had started to have erythema. He states he has otherwise been feeling well. Denies any fevers, chills. He has diarrhea at baseline secondary to the chemotherapy and radiation that he is having. He also has peripheral neuropathy with decreased sensation in the right first toe. Denies abdominal pain, urinary symptoms, other rash. No recent travel. He was seen by the oncologist's office yesterday and found to have a cellulitis that was felt to need IV antibiotics, so he was directly admitted to the hospital for IV antibiotics. No leukocytosis yesterday or today. He has been afebrile. He is noted to have some serous to serosanguineous drainage from the right first toe. He otherwise states that he is feeling well today. PAST MEDICAL HISTORY: 1. Rectal cancer, currently receiving chemo (5-FU) and radiation. 2. Diabetes mellitus, not currently taking medications. 3. Peripheral neuropathy. 4. History of alcohol abuse. PAST SURGICAL HISTORY: 1. Status post appendectomy. 2. Status post cataract removal. 3. Status post PowerPort placement. MEDICATIONS: Home medications: 1. Imodium A-D 2 mg by mouth every 6 hours as needed for diarrhea. 2. Atorvastatin 20 mg by mouth daily at bedtime. 3. Tramadol 50 mg by mouth every 8 hours as needed for pain. 4. Potassium chloride 20 mEq by mouth daily. 5. MiraLAX 17 grams by mouth every morning as needed for constipation. Hospital medications: 1. Acetaminophen 650 mg by mouth every 6 hours as needed for pain. 2. Atorvastatin 20 mg by mouth every morning. 3. Flexeril 10 mg by mouth 3 times daily as needed for muscle spasms. 4. Lovenox 40 mg subcutaneous daily. 5. Imodium 2 mg by mouth every 6 hours as needed for diarrhea. 6. Zosyn 3.375 grams IV every 8 hours. 7. Sodium chloride 50 mL an hour intravenously. 8. Tramadol 50 mg by mouth every 6 hours as needed for pain. 9. Vancomycin 1250 mg IV every 12 hours. ALLERGIES: No known drug allergies. FAMILY HISTORY: Denies family history of recurrent or resistant infections or diabetes. Denies family history of coronary artery disease or diabetes. Paternal grandmother and a paternal uncle with unknown cancer. The uncle he suspects was described as an abdominal cancer, but no clear details. SOCIAL HISTORY: He is a former alcoholic, but has been sober for a while. He is a former smoker, quitting 12 years ago. Prior to that, he had a 32-year 2- pack a day smoking history. Denies recreational drug use. REVIEW OF SYSTEMS: I performed a 10-point review of systems. All the pertinent positives and negatives are mentioned in the history of present illness. The remaining review of systems are negative. PHYSICAL EXAM: Vital Signs: Temperature 97.9, heart rate 80, respiratory rate 14, O2 sat 96% on room air, blood pressure 97/52. General Appearance: He is alert, appears to be in no acute distress, lying in bed. Head: Normocephalic, atraumatic. EENT: Extraocular movements are intact. No subconjunctival hemorrhage. Moist mucous membranes. Neck: Supple. No lymphadenopathy. Neurological: Alert and oriented x4. Cranial nerves II through XII are grossly intact. Moves all extremities. Cardiovascular: Regular rate and rhythm. S1, S2 present. There are no murmurs, rubs, or gallops heard. Respiratory: The lung sounds are clear to auscultation bilaterally. There is no accessory muscle use. Abdomen: Bowel sounds present. Abdomen is soft, nontender, nondistended. Extremities: There is no edema. DP and PT pulses are 2+ and symmetric. Musculoskeletal: No clubbing or cyanosis noted. The patient exhibits equal strength in all extremities. Psychological: Calm and cooperative. Skin: He has no rashes. The right plantar aspect of the first toe has an open wound that is approximately 3 x 2 cm x 0.1 cm. The wound base has pink granulation tissue. The left great toe is noted to have an approximately 0.3 x 0.3 diabetic ulcer that is not open or draining. There is erythema on the dorsal aspect of the right first toe. The erythema extending to the foot appears to be resolving and mostly located to the toe at this point when compared to the line drawn yesterday. DIAGNOSTIC STUDIES/LAB DATA: Sodium 139, potassium 3.5, chloride 106, CO2 of 28 , BUN 11, creatinine 0.76, glucose 101. White blood cell count 4.7, hemoglobin 11.1, hematocrit 33, platelet count 96. Please see impression and recommendations outlined above. Recommendations have been discussed with CAROL Castle. Thank you for asking us to see Mr. Pizano in consultation. The case has been reviewed with my attending, Dr. Edmundo Gonzalez, who agrees with the plan of care. Reviewed by TANJA MARTINEZ-Nina 12/29/18 1824 [id number]/[facility] #: [id number] MTDD
[2018-12-29] MEDS: ZOSYN 3.375 GM Q8H per EXTENDED INFUSION IVPB SCH ×6 (06:00→22:36)
[2018-12-29] MEDS ORDERED: Vancomycin Trough Check NOTE FOLLOW UP ONE (06:00)
[2018-12-29 06:33] LABS: Hematocrit 31 % (42-52); Hemoglobin 10.6 g/dL (14.0-18.0); Mean Corpuscular HGB Conc 34 g/dL (31-36); Mean Corpuscular Hemoglobin 32 pg (27-31); Mean Corpuscular Volume 94 fL (80-94); Mean Platelet Volume 8.4 fL (7.4-10.4); Platelet Count 92 10^3/uL (150-450); Red Cell Distribution Width 26 % (10-15); White Blood Count 5.2 10^3/uL (3.5-10.8)
[2018-12-29 06:44] LABS: Albumin/Globulin Ratio 1.3 (1-3); BUN/Creatinine Ratio 11.9 (8-20); Calcium 7.9 mg/dL (8.6-10.3); EGFR African American 143.2 (>60); EGFR Non-African American 118.3 (>60); Globulin 2.3 g/dL (2-4); Potassium 3.2 mmol/L (3.5-5.0); Total Bilirubin 0.5 mg/dL (0.2-1.0); Total Protein 5.3 g/dL (6.4-8.9)
[2018-12-29 06:45] LABS: Vancomycin Trough 11.1 mcg/mL
[2018-12-29 07:00] LABS: ABS Eosinophils 0.2 10^3/ul (0-0.6); ABS Lymphocytes 0.2 10^3/ul (1.0-4.8); ABS Monocytes 0.5 10^3/ul (0-0.8); ABS Neutrophils 4.4 10^3/ul (1.5-7.7); Eosinophil % 3.5 %; Lymphocyte % 3.1 %
[2018-12-29] MEDS: Vancomycin(*) 1,250 MG in NS 0.9% 250 ML* 250 ML IVPB SCH (07:12)
[2018-12-29] MEDS: Cyclobenzaprine TAB* 10 MG PO PRN (08:29)
--- NOTE | 2018-12-29 10:09 | PN ---
Progress Note - Progress Note Date of Service: 12/29/18 SOAP: Subjective: frequent diarrhea over night, not given PRN immodium. Objective: Vital Signs Temp Pulse Resp BP Pulse Ox 97.4 F 86 18 93/52 98 12/29/18 07:15 12/29/18 07:15 12/29/18 08:29 12/29/18 07:15 12/29/18 07:15 lying flat with incontinence of light brown stools perr eomi poor dentition cta bl s1 s2 nl soft nt +bs r bottom of foot ulcer much better, pink granulation tissues, erythema top of foot markedly better A+O x3 nonfocal neurological exam Laboratory Results - last 24 hr 12/29/18 12/29/18 06:15 06:15 WBC 5.2 RBC 3.30 L Hgb 10.6 L Hct 31 L MCV 94 MCH 32 H MCHC 34 RDW 26 H Plt Count 92 L MPV 8.4 Neut % (Auto) 84.2 Lymph % (Auto) 3.1 [place] % (Auto) 8.8 Eos % (Auto) 3.5 Baso % (Auto) 0.4 Absolute Neuts (auto) 4.4 Absolute Lymphs (auto) 0.2 L Absolute Monos (auto) 0.5 Absolute Eos (auto) 0.2 Absolute Basos (auto) 0.0 Absolute Nucleated RBC 0.0 Nucleated RBC % 0.0 Sodium 138 Potassium 3.2 L Chloride 108 Carbon Dioxide 24 Anion Gap 6 BUN 8 Creatinine 0.67 Est GFR ( Amer) 143.2 Est GFR (Non-Af Amer) 118.3 BUN/Creatinine Ratio 11.9 Glucose 101 H Calcium 7.9 L Total Bilirubin 0.50 AST 14 ALT 13 Alkaline Phosphatase 66 Total Protein 5.3 L Albumin 3.0 L Globulin 2.3 Albumin/Globulin Ratio 1.3 Vancomycin Trough 11.1 Acetaminophen (Tylenol Tab*) 650 mg PO Q6H PRN PRN Reason: PAIN - MILD Last Admin: 12/28/18 09:29 Dose: 650 mg Atorvastatin Calcium (Lipitor*) 20 mg PO QPM [facility]ELIT[facility] Last Admin: 12/28/18 17:39 Dose: 20 mg Cyclobenzaprine HCl (Flexeril Tab*) 10 mg PO TID PRN PRN Reason: rectal spasms Last Admin: 12/29/18 08:29 Dose: 10 mg Enoxaparin Sodium (Lovenox(*)) 40 mg SUBCUT Q24H COUNTS INCLUDE 234 BEDS AT THE [facility] Last Admin: 12/28/18 17:40 Dose: 40 mg Sodium Chloride (Ns 0.9% 1000 Ml) 1,000 mls @ 50 mls/hr IV .PER RATE COUNTS INCLUDE 234 BEDS AT THE [facility] Last Admin: 12/28/18 17:20 Dose: 50 mls/hr Piperacillin Sod/Tazobactam (Sod 3.375 gm/ Sodium Chloride) 100 mls @ 25 mls/ hr IVPB Q8H COUNTS INCLUDE 234 BEDS AT THE [facility] Last Admin: 12/29/18 06:00 Dose: 25 mls/hr Vancomycin HCl 1,000 mg/ (Sodium Chloride) 250 mls @ 166.667 mls/hr IV Q8H COUNTS INCLUDE 234 BEDS AT THE [facility] Loperamide HCl (Imodium Cap*) 2 mg PO Q6HR PRN PRN Reason: DIARRHEA Last Admin: 12/28/18 22:39 Dose: 2 mg Pharmacy Consult (Zosyn Per Pharmacy*) 1 note FOLLOW UP .ZOSYN PER PHARMACY COUNTS INCLUDE 234 BEDS AT THE [facility] Pharmacy Consult (Vancomycin Per Pharmacy*) 1 note FOLLOW UP .VANC PER PHARMACY COUNTS INCLUDE 234 BEDS AT THE [facility]; Protocol Pharmacy Profile Note (Vancomycin Trough Check) 1 note FOLLOW UP 1430 ONE Stop: 12/30/18 14:31 Tramadol HCl (Ultram*) 50 mg PO Q6H PRN PRN Reason: PAIN - MODERATE Last Admin: 12/28/18 22:38 Dose: 50 mg Assessment: This is a 68 yo male with rectal CA receiving concurrent chemotherapy and radiation who presented to the oncology clinic for routine followup found to have a large open lesion on his R GT and associated cellulitis. He was admitted for IV abx and has improved markedly. He has significant RT induced diarrhea Plan: 1. R foot cellulitis - cont broad spectrum coverage with Vanco/Zosyn at least through tomorrow - culture collected from open lesion on toe by ID - ID recommendations appreciated - dressing changes per wound 2. Rectal CA - prematurely finished chemotherapy - complete XRT as planned for 1 additional week -start oxycodone PRN pain (tramadol not sufficient) -encouraged more frequent use of immodium -replete potassium (from diarrhea) 3. DM neuropathy Dispo: cont IV abx for a minimum of an additional 24 hours, depending on degree of clinical improvement plan dc in 24-48 hours for a total of 2 weeks of oral abx
[2018-12-29] MEDS: Loperamide CAP* 2 MG PO PRN ×2 (10:21→22:56)
[2018-12-29] MEDS: oxyCODONE TAB* 5 MG TAB PO PRN ×2 (12:31→22:55)
[2018-12-29] MEDS: Potassium Chlor TAB* 20 MEQ TAB.ER PO SCH ×2 (12:31→22:36)
[2018-12-29] MEDS: Vancomycin(*) 1,000 MG in NS 0.9% 250 ML* 250 ML IV SCH ×2 (15:31→22:36)
[2018-12-29] MEDS: Atorvastatin* 20 MG TAB PO SCH (17:07)
[2018-12-29] MEDS: Enoxaparin(*) 40 MG/0.4 ML SYR SUBCUT SCH (17:07)
[2018-12-29] MEDS: NS 0.9% 1000 ML** 1,000 ML IV SCH (19:20)
[2018-12-30] MEDS: Vancomycin(*) 1,000 MG in NS 0.9% 250 ML* 250 ML IV SCH (06:00)
[2018-12-30] MEDS: ZOSYN 3.375 GM Q8H per EXTENDED INFUSION IVPB SCH ×6 (06:00→21:36)
[2018-12-30] MEDS: Cyclobenzaprine TAB* 10 MG PO PRN ×3 (08:35→21:34)
[2018-12-30] MEDS: oxyCODONE TAB* 5 MG TAB PO PRN ×3 (08:36→21:33)
[2018-12-30] MEDS: Potassium Chlor TAB* 20 MEQ TAB.ER PO SCH ×2 (08:36→21:34)
--- NOTE | 2018-12-30 08:48 | PN ---
Progress Note - Progress Note Date of Service: 12/30/18 SOAP: Subjective: pain better with oxycodone. still w diarrhea, improved though. Objective: Vital Signs Temp Pulse Resp BP Pulse Ox 98.2 F 83 18 107/53 100 12/30/18 07:39 12/30/18 07:39 12/30/18 08:36 12/30/18 07:39 12/30/18 07:39 sitting up eating breakfast perr eomi poor dentition cta bl s1 s2 nl soft nt +bs r bottom of foot ulcer , pink granulation tissues, erythema top of foot about same as yesterday A+O x3 nonfocal neurological exam labs Pending Acetaminophen (Tylenol Tab*) 650 mg PO Q6H PRN PRN Reason: PAIN - MILD Last Admin: 12/28/18 09:29 Dose: 650 mg Atorvastatin Calcium (Lipitor*) 20 mg PO QPM [facility] Last Admin: 12/29/18 17:07 Dose: 20 mg Cyclobenzaprine HCl (Flexeril Tab*) 10 mg PO TID PRN PRN Reason: rectal spasms Last Admin: 12/30/18 08:35 Dose: 10 mg Enoxaparin Sodium (Lovenox(*)) 40 mg SUBCUT Q24H [facility] Last Admin: 12/29/18 17:07 Dose: 40 mg Sodium Chloride (Ns 0.9% 1000 Ml) 1,000 mls @ 50 mls/hr IV .PER RATE [facility] Last Admin: 12/29/18 19:20 Dose: 50 mls/hr Piperacillin Sod/Tazobactam (Sod 3.375 gm/ Sodium Chloride) 100 mls @ 25 mls/ hr IVPB Q8H [facility] Last Admin: 12/30/18 06:00 Dose: 25 mls/hr Loperamide HCl (Imodium Cap*) 2 mg PO Q6HR PRN PRN Reason: DIARRHEA Last Admin: 12/29/18 22:56 Dose: 2 mg Oxycodone HCl (Roxycodone Tab*) 5 mg PO Q4H PRN PRN Reason: PAIN - MODERATE Last Admin: 12/30/18 08:36 Dose: 5 mg Pharmacy Consult (Zosyn Per Pharmacy*) 1 note FOLLOW UP .ZOSYN PER PHARMACY [facility] Pharmacy Consult (Vancomycin Per Pharmacy*) 1 note FOLLOW UP .VANC PER PHARMACY [facility]; Protocol Pharmacy Profile Note (Vancomycin Trough Check) 1 note FOLLOW UP 1430 ONE Stop: 12/30/18 14:31 Potassium Chloride (Klor Con Er Tab*) 20 meq PO BID [facility] Last Admin: 12/30/18 08:36 Dose: 20 meq Assessment: This is a 68 yo male with rectal CA receiving concurrent chemotherapy and radiation who presented to the oncology clinic for routine followup found to have a large open lesion on his R GT and associated cellulitis. He was admitted for IV abx and has improved markedly. Plan: 1. R foot cellulitis - wound growing pseudomonas, stop vanco today -fu sensitivities tomorrow and likely d/c on PO abx in am - ID recommendations appreciated - dressing changes per wound 2. Rectal CA - prematurely finished chemotherapy - complete XRT as planned for 1 additional week -cont oxycodone -encouraged more frequent use of immodium -replete potassium (from diarrhea) 3. DM neuropathy Dispo: cont IV abx through tomorrow am then anticipate dc home
[2018-12-30 09:10] LABS: ABS Eosinophils 0.2 10^3/ul (0-0.6); ABS Lymphocytes 0.1 10^3/ul (1.0-4.8); ABS Monocytes 0.5 10^3/ul (0-0.8); ABS Neutrophils 5.1 10^3/ul (1.5-7.7); Eosinophil % 3.8 %; Hematocrit 36 % (42-52); Hemoglobin 12.1 g/dL (14.0-18.0); Lymphocyte % 2.3 %; Mean Corpuscular HGB Conc 34 g/dL (31-36); Mean Corpuscular Hemoglobin 32 pg (27-31); Mean Corpuscular Volume 94 fL (80-94); Mean Platelet Volume 8.7 fL (7.4-10.4); Nucleated Red Blood Cells % 0.1; Platelet Count 115 10^3/uL (150-450); Red Blood Count 3.77 10^6 /uL (4.18-5.48); Red Cell Distribution Width 26 % (10-15)
[2018-12-30 09:24] LABS: BUN/Creatinine Ratio 9.2 (8-20); Calcium 8.4 mg/dL (8.6-10.3); EGFR African American 123.8 (>60); EGFR Non-African American 102.3 (>60); Potassium 3.3 mmol/L (3.5-5.0)
[2018-12-30] MEDS: KCL 20 MEQ/100 ML IVPREMIX* 20 MEQ/100 ML BAG IV SCH ×2 (11:20→13:46)
[2018-12-30] MEDS ORDERED: NS 0.9% 100 ML* 100 ML ONE (13:13)
[2018-12-30] MEDS: Loperamide CAP* 2 MG PO PRN ×2 (13:45→21:35)
[2018-12-30] MEDS ORDERED: Vancomycin Trough Check NOTE FOLLOW UP ONE (14:30)
[2018-12-30] MEDS: Enoxaparin(*) 40 MG/0.4 ML SYR SUBCUT SCH (17:17)
[2018-12-30] MEDS: Atorvastatin* 20 MG TAB PO SCH (17:17)
[2018-12-31 05:45] LABS: BUN/Creatinine Ratio 9.7 (8-20); Calcium 8.1 mg/dL (8.6-10.3); EGFR African American 131.8 (>60); EGFR Non-African American 108.9 (>60); Potassium 3.4 mmol/L (3.5-5.0)
[2018-12-31 05:52] LABS: ABS Eosinophils 0.2 10^3/ul (0-0.6); ABS Lymphocytes 0.2 10^3/ul (1.0-4.8); ABS Monocytes 0.5 10^3/ul (0-0.8); ABS Neutrophils 3.6 10^3/ul (1.5-7.7); Eosinophil % 3.9 %; Hematocrit 31 % (42-52); Hemoglobin 10.7 g/dL (14.0-18.0); Lymphocyte % 3.7 %; Mean Corpuscular HGB Conc 35 g/dL (31-36); Mean Corpuscular Hemoglobin 33 pg (27-31); Mean Corpuscular Volume 95 fL (80-94); Mean Platelet Volume 8.6 fL (7.4-10.4); Platelet Count 95 10^3/uL (150-450); Red Blood Count 3.27 10^6 /uL (4.18-5.48); Red Cell Distribution Width 26 % (10-15); White Blood Count 4.4 10^3/uL (3.5-10.8)
[2018-12-31] MEDS: NS 0.9% 1000 ML** 1,000 ML IV SCH (06:32)
[2018-12-31] MEDS: ZOSYN 3.375 GM Q8H per EXTENDED INFUSION IVPB SCH ×2 (06:32)
[2018-12-31] MEDS: oxyCODONE TAB* 5 MG TAB PO PRN (07:21)
[2018-12-31] MEDS: Potassium Chlor TAB* 20 MEQ TAB.ER PO SCH (07:52)
[2018-12-31 08:59] VITALS: BP 92/54
--- NOTE | 2018-12-31 10:25 | PN ---
Progress Note - Progress Note Date of Service: 12/31/18 SOAP: Subjective: CC: Right foot cellulitis HPI: Ms. Pizano is a 68 yo male with PMH significant for DM2, peripheral neuropathy, and rectal CA (receiving chemo and rxt). Feels well today. Denies fever, chills , nausea, or vomiting. Continues to have erythema to the right 1st toe and drainage, the dressing is being changed daily. Reports continued diarrhea, this has been baseline while on chemo, rxt, and setting of rectal cancer. Objective: Vital Signs - 8 hr 12/31/18 07:54 Temperature 97.5 F Pulse Rate 75 Respiratory 17 Rate Blood Pressure 92/54 (mmHg) O2 Sat by Pulse 100 Oximetry Physical Exam: General: NAD, sitting up in a chair Neurological: Alert and Oriented x4 HEENT: Moist MM, no thrush Cardiovascular: Heart rate regular Respiratory: Lung sounds clear Abdominal: Bowel sounds present; ABD soft, non tender and non distended Skin: Erythema to the right 1st toe. Dressing intact with old drainage. Laboratory Results - last 24 hr 12/31/18 12/31/18 05:10 05:10 WBC 4.4 RBC 3.27 L Hgb 10.7 L Hct 31 L MCV 95 H MCH 33 H MCHC 35 RDW 26 H Plt Count 95 L MPV 8.6 Neut % (Auto) 81.6 Lymph % (Auto) 3.7 [place] % (Auto) 10.4 Eos % (Auto) 3.9 Baso % (Auto) 0.4 Absolute Neuts (auto) 3.6 Absolute Lymphs (auto) 0.2 L Absolute Monos (auto) 0.5 Absolute Eos (auto) 0.2 Absolute Basos (auto) 0.0 Absolute Nucleated RBC 0.0 Nucleated RBC % 0.0 Anisocytosis 2+ Sodium 139 Potassium 3.4 L Chloride 111 Carbon Dioxide 23 Anion Gap 5 BUN 7 Creatinine 0.72 Est GFR ( Amer) 131.8 Est GFR (Non-Af Amer) 108.9 BUN/Creatinine Ratio 9.7 Glucose 87 Calcium 8.1 L Microbiology 12/28/18 10:50 Gram Stain - Final Foot Right Wound Culture - Final Pseudomonas Aeruginosa Assessment: 1. Cellulitis of the right foot with a wound to the 1st toe. Afebrile and no leukocytosis. Wound culture with pseudomonas. Erythema continues to improve and is located on the 1st toe. 2. DM2 with peripheral neuropathy and a left 1st toe diabetic ulcer. 3. Rectal cancer. Currently receiving 5-FU and rxt. 5-FU is being held at this time. Plan: Continue Zosyn while in the hospital. Transition to oral Levaquin to complete a 14 day course at discharge. Continue local wound care. He can followup with ID outpatient in 1-2 weeks.
--- NOTE | 2018-12-31 12:54 | DS ---
CC: Kevin King NP * DISCHARGE SUMMARY: DATE OF ADMISSION: 12/27/18 DATE OF DISCHARGE: 12/31/18 PRIMARY CARE PROVIDER: Kevin King NP. CONSULTING INFECTIOUS DISEASE PROVIDERS: Dr. Edmundo Gonzalez and Dionna Ng NP. PRIMARY ONCOLOGIST AND ATTENDING PHYSICIAN: Dr. Ne Roberson.* (DICTATED BY CAROL NEWSOME) DISCHARGING PROVIDER: CAROL Newsome. PRIMARY DISCHARGE DIAGNOSES: 1. Right foot cellulitis secondary to ulceration over the right great toe in the setting of diabetic neuropathy and chemotherapy treatment for rectal cancer. 2. Rectal cancer - recently treated with concurrent chemotherapy and radiation. 3. Lrt-obspcsf-[place] diabetes. DISCHARGE MEDICATIONS: 1. Atorvastatin 20 mg p.o. daily. 2. Imodium 2 mg p.o. q.6 hours as needed for diarrhea. 3. Potassium chloride 20 mEq p.o. daily. 4. Levaquin 750 mg p.o. daily x10 days. 5. Oxycodone 5 mg p.o. q.4 hours as needed for pain. HOSPITAL IMAGING: MRI of the right foot shows no evidence of osteomyelitis. HOSPITAL COURSE: This is 68-year-old gentleman who has been receiving concurrent chemotherapy with continuous 5-FU infusion along with concurrent radiation under the guidance of Dr. Roberson and Julian, who presented for routine chemotherapy followup in the clinic and mentioned that some skin had come off of his right foot the day prior. He had dressed the wound himself, but was not terribly concerned about it. During the office visit, the wound was examined, which showed a large open ulceration over the right great toe taking up nearly the entire plantar surface of the right toe along with erythema encompassing the majority of the foot with streaking up towards the ankle. His continuous 5-FU was immediately discontinued, and the patient was subsequently admitted for IV antibiotics for cellulitis. Blood cultures were collected, 1 out of 4 bottles grew what was likely a contaminant and the patient was placed on vancomycin and Zosyn. He had a significant improvement after initiation of IV antibiotics in appearance of the erythema and he remained afebrile throughout his hospital stay. Infectious Disease and Wound Care were consulted, collected a culture from the ulceration, which eventually grew pseudomonas, found to be sensitive to Levaquin and Cipro. The patient's wound was dressed with calcium alginate daily and covered with dry dressing and continued to have a moderate amount of drainage, but otherwise no further complications during this hospitalization. DISPOSITION AND FOLLOWUP PLAN: The patient is being discharged to home in stable condition where he lives independently, but his daughter is available for support. He will continue with daily dressing changes with application of calcium alginate to the wound bed covered in a dry dressing. Referral has been initiated to the wound care center. He will continue with Levaquin for 10 additional days. Followup has been arranged in the oncology clinic for later this week to ensure continued wound healing and will follow up with Infectious Disease in 1 to 2 weeks. His chemotherapy has been prematurely stopped due to this infection, but he will complete radiation as scheduled through the remainder of this week. CAROL NEWSOME [id number]/[facility] #: [id number] RIC
== END 2018-12-31 12:00 | disposition home health service (06) | DRG 603 ==
LOC: OBSVTOIN 16:29 → MEDTELE 16:29
PROVIDERS: ADMIT Internal Medicine Hematology & Oncology; ATTEND Internal Medicine Hematology & Oncology
PROC: DW061ZZ Beam Radiation of Pelvic Region using Photons 1 - 10 MeV (ICD-10-PCS; principal; 2018-12-28)
DX: L03.115 Cellulitis of right lower limb (principal); C20 Malignant neoplasm of rectum; L97.519 Non-pressure chronic ulcer of other part of right foot with unspecified severity; E11.621 Type 2 diabetes mellitus with foot ulcer; E11.42 Type 2 diabetes mellitus with diabetic polyneuropathy; B96.5 Pseudomonas (aeruginosa) (mallei) (pseudomallei) as the cause of diseases classified elsewhere; F10.21 Alcohol dependence, in remission; Z79.899 Other long term (current) drug therapy; Z87.891 Personal history of nicotine dependence; Z80.9 Family history of malignant neoplasm, unspecified; Z79.84 Long term (current) use of oral hypoglycemic drugs
CPT/HCPCS: 36415; 80048; 80053; 80202; 85025; 85060; 87070; 87077; 87186; 87205; 99222; 99232; 99239; A9270-GY; J1642; J1650; J2543; J3370; J3480

== ENCOUNTER 2019-01-22 18:41 | Emergency (ER) | payer MEDICARE, BC ==
--- OUTSIDE RECORDS SUMMARY | 2019-01-22 18:55 | XMS REPORT ---
:1950 Author Organization [facility] Care Team Providers Name Role Phone Unavailable Unavailable Unavailable Problems This patient has no known problems. Allergies, Adverse Reactions, Alerts Allergy Allergy Status Severity Reaction(s) Onset Inactive Treating Comments Name Type Date Date Clinician Uncoded Unknown Active Unknown Reaction 2018-12 Interface free-text 18 allergy Medications Ordered Filled Start Stop Current Ordering Indication Dosage Frequency Signature Comments Components Medication Medication Date Date Medication? Clinician (SIG) Name Name Polyethylen Polyethylen 2018-02 Yes Unknown Unknown Unknown e Glycol e Glycol 0- [id number] atorvastati atorvastati 2018-02 Yes Unknown Unknown Unknown n 20 mg n 20 mg 0- tablet tablet traMADol 50 traMADol 50 2018-02- Yes Unknown Unknown Unknown mg tablet mg tablet 0-12-31 Potassium Potassium 2018-02 Yes Unknown Unknown Unknown Chlor Tab* Chlor Tab* 02-26 Loperamide Loperamide 2018-02 Yes Unknown Unknown Unknown Hcl Hcl 02-26 levoFLOXaci levoFLOXaci 2018-02 Yes Unknown Unknown Unknown n 750 mg n 750 mg 1-18 tablet tablet oxyCODONE 5 oxyCODONE 5 2018-02 Yes Unknown Unknown Unknown mg mg 18 tablet,oral tablet,oral ONLY (not ONLY (not feeding feeding tubes) tubes) Vital Signs Vital Name Observation Time Observation Value Comments SYSTOLIC mm[Hg] 2018-12-31 18:08:55 92 mm[Hg] mm[Hg] Method: Sit DIASTOLIC mm[Hg] 2018-12-31 18:08:55 54 mm[Hg] mm[Hg] Method: Sit PULSE 2018-12-31 18:08:55 75 /min /min RESP RATE 2018-12-31 18:08:55 17 /min /min TEMP 2018-12-31 18:08:55 97.5 [degF] Procedures This patient has no known procedures. Results Test Description Test Time Test Comments Text Results Atomic Results Result Comments Serum or plasma calcium 2018-12-31 05:10:00 Identifier 64182-8 Result Unknown measurement (mass/volume) Time 2018-12-31 05:10:00 Test Item Value Reference Range Comments Serum or plasma calcium measurement (mass/volume) (test 8.1 mg/dL Unknown Unknown F code = 31055-9) Ordering Physician UnknownSerum or plasma carbon dioxide, total measurement ( moles/volume)2018-12-31 05:10:00Identifier 2027-9 Result Time 2018-12-31 05:10: 00Unknown Test Item Value Reference Range Comments Serum or plasma carbon dioxide, total 23 mmol/L Unknown Unknown F measurement (moles/volume) (test code = 8-9) Ordering Physician UnknownSerum or plasma chloride measurement (moles/volume) 2018-12-31 05:10:00Identifier 2075-0 Result Time 2018-12-31 05:10:00Unknown Test Item Value Reference Range Comments Serum or plasma chloride measurement 111 mmol/L Unknown Unknown F (moles/volume) (test code = 2075-0) Ordering Physician UnknownSerum or plasma creatinine measurement (mass/volume) 2018-12-31 05:10:00Identifier 2160-0 Result Time 2018-12-31 05:10:00Unknown Test Item Value Reference Range Comments Serum or plasma creatinine measurement 0.72 mg/dL Unknown Unknown F (mass/volume) (test code = 2160-0) Ordering Physician UnknownSerum glucose measurement (mass/volume)2018-12-31 05: 10:00Identifier 2345-7 Result Time 2018-12-31 05:10:00Unknown Test Item Value Reference Range Comments Serum glucose measurement (mass/volume) 87 mg/dL Unknown Unknown F (test code = 2345-7) Ordering Physician UnknownSerum or plasma potassium measurement (moles/volume) 2018-12-31 05:10:00Identifier 2823-3 Result Time 2018-12-31 05:10:00Unknown Test Item Value Reference Range Comments Serum or plasma potassium measurement 3.4 mmol/L Unknown Unknown F (moles/volume) (test code = 2823-3) Ordering Physician UnknownSerum or plasma sodium measurement (moles/volume)12-31 05:10:00Identifier 2951-2 Result Time 2018-12-31 05:10:00Unknown Test Item Value Reference Range Comments Serum or plasma sodium measurement 139 mmol/L Unknown Unknown F (moles/volume) (test code = 2951-2) Ordering Physician UnknownSerum or plasma urea nitrogen measurement (mass/volume )2018-12-31 05:10:00Identifier 3094-0 Result Time 2018-12-31 05:10:00Unknown Test Item Value Reference Range Comments Serum or plasma urea nitrogen measurement 7 mg/dL Unknown Unknown F (mass/volume) (test code = 3094-0) Ordering Physician UnknownSerum or plasma urea nitrogen/creatinine ocolh2051-80- 18 05:10:00Identifier 3097-3 Result Time 2018-12-31 05:10:00Unknown Test Item Value Reference Range Comments Serum or plasma urea nitrogen/creatinine ratio 9.7 Unknown Unknown F (test code = 3097-3) Ordering Physician UnknownAutomated blood platelet mean volume ceblqkwbybb9461- 11-18 05:10:00Identifier 63628-2 Result Time 2018-12-31 05:10:00Unknown Test Item Value Reference Range Comments Automated blood platelet mean volume 8.6 fL Unknown Unknown F measurement (test code = 95509-1) Ordering Physician UnknownSerum or plasma anion kob9221-07-84 05:10: 00Identifier 06609-9 Result Time 2018-12-31 05:10:00Unknown Test Item Value Reference Range Comments Serum or plasma anion gap (test code = 5 mmol/L Unknown Unknown F 10982-5) Ordering Physician UnknownAutomated blood leukocytes count corrected for nucleated erythrocytes (number/volume)2018-12-31 05:10:00Identifier 32201-8 Result Time 2018-12-31 05:10:00Unknown Test Item Value Reference Range Comments Automated blood leukocytes count 4.4 10^3/uL Unknown Unknown F corrected for nucleated erythrocytes (number/volume) (test code = 59779-4) Ordering Physician UnknownAutomated blood nucleated erythrocytes fromoqxhv9234- 11-18 05:10:00Identifier 21811-9 Result Time 2018-12-31 05:10:00Unknown Test Item Value Reference Range Comments Automated blood nucleated erythrocytes 0.0 Unknown Unknown F detection (test code = 40731-7) Ordering Physician UnknownAutomated blood hematocrit (percentage)2018-12-31 05: 10:00Identifier 4544-3 Result Time 2018-12-31 05:10:00Unknown Test Item Value Reference Range Comments Automated blood hematocrit (percentage) (test 31 % Unknown Unknown F code = 4544-3) Ordering Physician UnknownEstimated glomerular filtration rate (GFR) non- Ohhtkjrk4790-96-18 05:10:00Identifier 94126-4 Result Time 2018-12-31 05: 10:00Unknown Test Item Value Reference Range Comments Estimated glomerular filtration rate (GFR) 108.9 Unknown Unknown F non- (test code = 91219-5) Ordering Physician UnknownAutomated blood monocytes/100 rxjlvwkcnw6071-56-79 05: 10:00Identifier 5905-5 Result Time 2018-12-31 05:10:00Unknown Test Item Value Reference Range Comments Automated blood monocytes/100 leukocytes 10.4 % Unknown Unknown F (test code = 5905-5) Ordering Physician UnknownAutomated blood basophil count (number/volume) 05:10:00Identifier 704-7 Result Time 2018-12-31 05:10:00Unknown Test Item Value Reference Range Comments Automated blood basophil count 0.0 10^3/ul Unknown Unknown F (number/volume) (test code = 704-7) Ordering Physician UnknownAutomated blood basophils/100 kneqqroqha6690-52-16 05: 10:00Identifier 706-2 Result Time 2018-12-31 05:10:00Unknown Test Item Value Reference Range Comments Automated blood basophils/100 leukocytes 0.4 % Unknown Unknown F (test code = 706-2) Ordering Physician UnknownAutomated blood eosinophil count (number/volume)12-31 05:10:00Identifier 711-2 Result Time 2018-12-31 05:10:00Unknown Test Item Value Reference Range Comments Automated blood eosinophil count 0.2 10^3/ul Unknown Unknown F (number/volume) (test code = 711-2) Ordering Physician UnknownAutomated blood eosinophils/100 xlsploakme5884-19-69 05:10:00Identifier 713-8 Result Time 2018-12-31 05:10:00Unknown Test Item Value Reference Range Comments Automated blood eosinophils/100 leukocytes 3.9 % Unknown Unknown F (test code = 713-8) Ordering Physician UnknownBlood hemoglobin measurement (mass/volume)2018-12-31 05:10:00Identifier 718-7 Result Time 2018-12-31 05:10:00Unknown Test Item Value Reference Range Comments Blood hemoglobin measurement 10.7 g/dL Unknown Unknown F (mass/volume) (test code = 718-7) Ordering Physician UnknownBlood lymphocytes automated count (number/volume)12-31 05:10:00Identifier 731-0 Result Time 2018-12-31 05:10:00Unknown Test Item Value Reference Range Comments Blood lymphocytes automated count 0.2 10^3/ul Unknown Unknown F (number/volume) (test code = 731-0) Ordering Physician UnknownAutomated blood lymphocytes/100 dlcegnsyav9502-00-61 05:10:00Identifier 736-9 Result Time 2018-12-31 05:10:00Unknown Test Item Value Reference Range Comments Automated blood lymphocytes/100 leukocytes 3.7 % Unknown Unknown F (test code = 736-9) Ordering Physician UnknownBlood monocytes automated count (number/volume)2018-12 05:10:00Identifier 742-7 Result Time 2018-12-31 05:10:00Unknown Test Item Value Reference Range Comments Blood monocytes automated count 0.5 10^3/ul Unknown Unknown F (number/volume) (test code = 742-7) Ordering Physician UnknownAutomated blood neutrophils/100 pzrxudpwpm0526-59-91 05:10:00Identifier 770-8 Result Time 2018-12-31 05:10:00Unknown Test Item Value Reference Range Comments Automated blood neutrophils/100 leukocytes 81.6 % Unknown Unknown F (test code = 770-8) Ordering Physician UnknownBlood nucleated erythrocytes automated count (number/ volume)2018-12-31 05:10:00Identifier 771-6 Result Time 2018-12-31 05:10: 00Unknown Test Item Value Reference Range Comments Blood nucleated erythrocytes automated 0.0 10^3/ul Unknown Unknown F count (number/volume) (test code = 771-6) Ordering Physician UnknownAutomated blood platelet count (number/volume) 05:10:00Identifier 777-3 Result Time 2018-12-31 05:10:00Unknown Test Item Value Reference Range Comments Automated blood platelet count 95 10^3/uL Unknown Unknown F (number/volume) (test code = 777-3) Ordering Physician UnknownAutomated erythrocyte mean corpuscular hemoglobin ( mass per erythrocyte)2018-12-31 05:10:00Identifier 785-6 Result Time 2018-12-31 05:10:00Unknown Test Item Value Reference Range Comments Automated erythrocyte mean corpuscular 33 pg Unknown Unknown F hemoglobin (mass per erythrocyte) (test code = 785-6) Ordering Physician UnknownAutomated erythrocyte mean corpuscular hemoglobin concentration measurement (mass/nbx2676-57-54 05:10:00Identifier 786-4 Result Time 2018-12-31 05:10:00Unknown Test Item Value Reference Range Comments Automated erythrocyte mean corpuscular 35 g/dL Unknown Unknown F hemoglobin concentration measurement (mass/vol (test code = 786-4) Ordering Physician UnknownAutomated erythrocyte mean corpuscular gynjyo9614-62- 18 05:10:00Identifier 787-2 Result Time 2018-12-31 05:10:00Unknown Test Item Value Reference Range Comments Automated erythrocyte mean corpuscular volume 95 fL Unknown Unknown F (test code = 787-2) Ordering Physician UnknownAutomated erythrocyte distribution width spcqf2213-29- 18 05:10:00Identifier 788-0 Result Time 2018-12-31 05:10:00Unknown Test Item Value Reference Range Comments Automated erythrocyte distribution width ratio 26 % Unknown Unknown F (test code = 788-0) Ordering Physician UnknownAutomated blood erythrocyte count (number/volume)12-31 05:10:00Identifier 789-8 Result Time 2018-12-31 05:10:00Unknown Test Item Value Reference Range Comments Automated blood erythrocyte count 3.27 10^6 /uL Unknown Unknown F (number/volume) (test code = 789-8) Ordering Physician UnknownCT biopsy tlrcs9770-29-40 05:10:00Identifier [id number] Result Time 2018-12-31 05:10:00Unknown Test Item Value Reference Range Comments CT biopsy liver (test code = QXM6698) 3.6 10^3/ul Unknown Unknown F Ordering Physician UnknownSerum or plasma alanine aminotransferase measurement ( enzymatic activity/volume)2018-12-29 06:15:00Identifier 1742-6 Result Time 12-29 06:15:00Unknown Test Item Value Reference Range Comments Serum or plasma alanine aminotransferase 13 U/L Unknown Unknown F measurement (enzymatic activity/volume) (test code = 1742-6) Ordering Physician UnknownSerum or plasma albumin/globulin mass aalcs5250-43-82 06:15:00Identifier 1759-0 Result Time 2018-12-29 06:15:00Unknown Test Item Value Reference Range Comments Serum or plasma albumin/globulin mass ratio 1.3 Unknown Unknown F (test code = 1759-0) Ordering Physician UnknownSerum or plasma aspartate aminotransferase measurement (enzymatic activity/volume)2018-12-29 06:15:00Identifier 1920-8 Result Time 2018-12-29 06:15:00Unknown Test Item Value Reference Range Comments Serum or plasma aspartate aminotransferase 14 U/L Unknown Unknown F measurement (enzymatic activity/volume) (test code = 1920-8) Ordering Physician UnknownSerum or plasma total bilirubin measurement (mass/ volume)2018-12-29 06:15:00Identifier 1974-2 Result Time 2018-12-29 06:15: 00Unknown Test Item Value Reference Range Comments Serum or plasma total bilirubin 0.50 mg/dL Unknown Unknown F measurement (mass/volume) (test code = 1975-2) Ordering Physician UnknownSerum total protein measurement (mass/volume) 06:15:00Identifier 2885-2 Result Time 2018-12-29 06:15:00Unknown Test Item Value Reference Range Comments Serum total protein measurement 5.3 g/dL Unknown Unknown F (mass/volume) (test code = 2885-2) Ordering Physician UnknownVancomycin dsxnvu4714-13-41 06:15:00Identifier 4092-3 Result Time 2018-12-29 06:15:00Unknown Test Item Value Reference Range Comments Vancomycin trough (test code = 4092-3) 11.1 mcg/mL Unknown Unknown F Ordering Physician UnknownSerum or plasma albumin measurement by bromocresol green (BCG) dye binding method (ru5960-93-56 06:15:00Identifier 17800-7 Result Time 2018-12-29 06:15:00Unknown Test Item Value Reference Range Comments Serum or plasma albumin measurement by 3.0 g/dL Unknown Unknown F bromocresol green (BCG) dye binding method (ma (test code = 38205-9) Ordering Physician UnknownSerum or plasma alkaline phosphatase measurement ( enzymatic activity/volume)2018-12-29 06:15:00Identifier 6768-6 Result Time 12-29 06:15:00Unknown Test Item Value Reference Range Comments Serum or plasma alkaline phosphatase 66 U/L Unknown Unknown F measurement (enzymatic activity/volume) (test code = 6768-6) Ordering Physician UnknownRoutine wound qkhqfzx4536-31-06 10:50:00Identifier 6462-6 Result Time 2018-12-28 10:50:00Unknown Test Item Value Reference Range Comments Wound Culture (test code = Pseudomonas Aeruginosa Unknown Unknown F Wound Culture) Ordering Physician Unknown
--- OUTSIDE RECORDS SUMMARY | 2019-01-22 18:55 | XMS REPORT ---
:1950 Author Organization [facility] Care Team Providers Name Role Phone Unavailable [...] Serum or plasma calcium 2018-12-31 05:10:00 Identifier 10941-3 Result Unknown measurement (mass/volume) Time 2018-12-31 05:10:00 Test Item Value Reference Range Comments Serum or plasma calcium measurement (mass/volume) (test 8.1 mg/dL Unknown Unknown F code = 14182-0) Ordering Physician UnknownSerum or plasma carbon dioxide, [...] Ordering Physician UnknownSerum or plasma urea nitrogen/creatinine qkohw0650-51- 18 05:10:00Identifier 3097-3 Result Time 2018-12-31 05:10:00Unknown Test Item Value Reference Range Comments Serum or plasma urea nitrogen/creatinine ratio 9.7 Unknown Unknown F (test code = 3097-3) Ordering Physician UnknownAutomated blood platelet mean volume wrnapupxqty2838- 11-18 05:10:00Identifier 81910-1 Result Time 2018-12-31 05:10:00Unknown Test Item Value Reference Range Comments Automated blood platelet mean volume 8.6 fL Unknown Unknown F measurement (test code = 45979-3) Ordering Physician UnknownSerum or plasma anion eqv8899-51-35 05:10: 00Identifier 91159-7 Result Time 2018-12-31 05:10:00Unknown Test Item Value Reference Range Comments Serum or plasma anion gap (test code = 5 mmol/L Unknown Unknown F 52246-5) Ordering Physician UnknownAutomated blood leukocytes count corrected for nucleated erythrocytes (number/volume)2018-12-31 05:10:00Identifier 85997-4 Result Time 2018-12-31 05:10:00Unknown Test Item Value Reference Range Comments Automated blood leukocytes count 4.4 10^3/uL Unknown Unknown F corrected for nucleated erythrocytes (number/volume) (test code = 94373-5) Ordering Physician UnknownAutomated blood nucleated erythrocytes rgumavjhq9379- 11-18 05:10:00Identifier 58517-0 Result Time 2018-12-31 05:10:00Unknown Test Item Value Reference Range Comments Automated blood nucleated erythrocytes 0.0 Unknown Unknown F detection (test code = 76518-7) Ordering Physician UnknownAutomated blood hematocrit (percentage)2018-12-31 05: 10:00Identifier 4544-3 Result Time 2018-12-31 05:10:00Unknown Test Item Value Reference Range Comments Automated blood hematocrit (percentage) (test 31 % Unknown Unknown F code = 4544-3) Ordering Physician UnknownEstimated glomerular filtration rate (GFR) non- Womowcwm3724-66-76 05:10:00Identifier 97500-5 Result Time 2018-12-31 05: 10:00Unknown Test Item Value Reference Range Comments Estimated glomerular filtration rate (GFR) 108.9 Unknown Unknown F non- (test code = 14690-6) Ordering Physician UnknownAutomated blood monocytes/100 tnguzbzmae7666-02-98 05: 10:00Identifier 5905-5 Result Time 2018-12-31 05:10:00Unknown [...] = 704-7) Ordering Physician UnknownAutomated blood basophils/100 jzgkbiggqp1605-30-56 05: 10:00Identifier 706-2 Result Time 2018-12-31 05:10:00Unknown [...] = 711-2) Ordering Physician UnknownAutomated blood eosinophils/100 uuoplecwmr1364-01-99 05:10:00Identifier 713-8 Result Time 2018-12-31 05:10:00Unknown Test [...] = 731-0) Ordering Physician UnknownAutomated blood lymphocytes/100 rmkatpanrn7355-64-35 05:10:00Identifier 736-9 Result Time 2018-12-31 05:10:00Unknown Test Item Value Reference Range Comments Automated blood lymphocytes/100 leukocytes 3.7 % Unknown Unknown F (test code = 736-9) Ordering Physician UnknownBlood monocytes automated count (number/volume)2018-12 05:10:00Identifier 742-7 Result Time 2018-12-31 05:10:00Unknown Test Item Value Reference Range Comments Blood monocytes automated count 0.5 10^3/ul Unknown Unknown F (number/volume) (test code = 742-7) Ordering Physician UnknownAutomated blood neutrophils/100 fgthijsfka7173-91-40 05:10:00Identifier 770-8 Result Time 2018-12-31 05:10:00Unknown Test [...] UnknownAutomated erythrocyte mean corpuscular hemoglobin concentration measurement (mass/dvv2263-55-70 05:10:00Identifier 786-4 Result Time 2018-12-31 05:10:00Unknown Test Item Value Reference Range Comments Automated erythrocyte mean corpuscular 35 g/dL Unknown Unknown F hemoglobin concentration measurement (mass/vol (test code = 786-4) Ordering Physician UnknownAutomated erythrocyte mean corpuscular vuqfwj8446-51- 18 05:10:00Identifier 787-2 Result Time 2018-12-31 05:10:00Unknown Test Item Value Reference Range Comments Automated erythrocyte mean corpuscular volume 95 fL Unknown Unknown F (test code = 787-2) Ordering Physician UnknownAutomated erythrocyte distribution width ckqoq3688-78- 18 05:10:00Identifier 788-0 Result Time 2018-12-31 05:10:00Unknown [...] code = 789-8) Ordering Physician UnknownCT biopsy zvpzi1488-76-76 05:10:00Identifier [id number] Result Time 2018-12-31 05:10:00Unknown Test Item Value Reference Range Comments CT biopsy liver (test code = XYH4260) 3.6 10^3/ul Unknown Unknown F Ordering Physician UnknownSerum or plasma alanine aminotransferase measurement ( enzymatic activity/volume)2018-12-29 06:15:00Identifier 1742-6 Result Time 12-29 06:15:00Unknown Test Item Value Reference Range Comments Serum or plasma alanine aminotransferase 13 U/L Unknown Unknown F measurement (enzymatic activity/volume) (test code = 1742-6) Ordering Physician UnknownSerum or plasma albumin/globulin mass kzmnu1816-51-67 06:15:00Identifier 1759-0 Result Time 2018-12-29 06:15:00Unknown Test [...] (test code = 2885-2) Ordering Physician UnknownVancomycin iamner1481-75-85 06:15:00Identifier 4092-3 Result Time 2018-12-29 06:15:00Unknown Test Item Value Reference Range Comments Vancomycin trough (test code = 4092-3) 11.1 mcg/mL Unknown Unknown F Ordering Physician UnknownSerum or plasma albumin measurement by bromocresol green (BCG) dye binding method (if3383-24-05 06:15:00Identifier 97070-9 Result Time 2018-12-29 06:15:00Unknown Test Item Value Reference Range Comments Serum or plasma albumin measurement by 3.0 g/dL Unknown Unknown F bromocresol green (BCG) dye binding method (ma (test code = 31479-5) Ordering Physician UnknownSerum or plasma alkaline phosphatase measurement ( enzymatic activity/volume)2018-12-29 06:15:00Identifier 6768-6 Result Time 12-29 06:15:00Unknown Test Item Value Reference Range Comments Serum or plasma alkaline phosphatase 66 U/L Unknown Unknown F measurement (enzymatic activity/volume) (test code = 6768-6) Ordering Physician UnknownRoutine wound ehkhqeu8965-15-16 10:50:00Identifier 6462-6 Result Time 2018-12-28 10:50:00Unknown Test Item Value Reference Range Comments Wound Culture (test code = Pseudomonas Aeruginosa Unknown Unknown F Wound Culture) Ordering Physician Unknown
--- OUTSIDE RECORDS SUMMARY | 2019-01-22 18:55 | XMS REPORT ---
:1950 Author Organization [facility] Care Team Providers Name Role Phone Unavailable [...] Serum or plasma calcium 2018-12-31 05:10:00 Identifier 83039-4 Result Unknown measurement (mass/volume) Time 2018-12-31 05:10:00 Test Item Value Reference Range Comments Serum or plasma calcium measurement (mass/volume) (test 8.1 mg/dL Unknown Unknown F code = 88254-5) Ordering Physician UnknownSerum or plasma carbon dioxide, [...] Ordering Physician UnknownSerum or plasma urea nitrogen/creatinine ipumn0867-50- 18 05:10:00Identifier 3097-3 Result Time 2018-12-31 05:10:00Unknown Test Item Value Reference Range Comments Serum or plasma urea nitrogen/creatinine ratio 9.7 Unknown Unknown F (test code = 3097-3) Ordering Physician UnknownAutomated blood platelet mean volume kebtxnresgi8677- 11-18 05:10:00Identifier 21552-9 Result Time 2018-12-31 05:10:00Unknown Test Item Value Reference Range Comments Automated blood platelet mean volume 8.6 fL Unknown Unknown F measurement (test code = 56856-4) Ordering Physician UnknownSerum or plasma anion kbu1643-77-15 05:10: 00Identifier 05153-9 Result Time 2018-12-31 05:10:00Unknown Test Item Value Reference Range Comments Serum or plasma anion gap (test code = 5 mmol/L Unknown Unknown F 58894-3) Ordering Physician UnknownAutomated blood leukocytes count corrected for nucleated erythrocytes (number/volume)2018-12-31 05:10:00Identifier 66418-0 Result Time 2018-12-31 05:10:00Unknown Test Item Value Reference Range Comments Automated blood leukocytes count 4.4 10^3/uL Unknown Unknown F corrected for nucleated erythrocytes (number/volume) (test code = 92754-3) Ordering Physician UnknownAutomated blood nucleated erythrocytes mgzovzttm5592- 11-18 05:10:00Identifier 50165-0 Result Time 2018-12-31 05:10:00Unknown Test Item Value Reference Range Comments Automated blood nucleated erythrocytes 0.0 Unknown Unknown F detection (test code = 08998-8) Ordering Physician UnknownAutomated blood hematocrit (percentage)2018-12-31 05: 10:00Identifier 4544-3 Result Time 2018-12-31 05:10:00Unknown Test Item Value Reference Range Comments Automated blood hematocrit (percentage) (test 31 % Unknown Unknown F code = 4544-3) Ordering Physician UnknownEstimated glomerular filtration rate (GFR) non- [place]6326-01-95 05:10:00Identifier 59464-2 Result Time 2018-12-31 05: 10:00Unknown Test Item Value Reference Range Comments Estimated glomerular filtration rate (GFR) 108.9 Unknown Unknown F non- (test code = 37516-9) Ordering Physician UnknownAutomated blood monocytes/100 eaumxoyrrk9408-48-56 05: 10:00Identifier 5905-5 Result Time 2018-12-31 05:10:00Unknown [...] = 704-7) Ordering Physician UnknownAutomated blood basophils/100 dvyxiabjeh4544-71-77 05: 10:00Identifier 706-2 Result Time 2018-12-31 05:10:00Unknown [...] = 711-2) Ordering Physician UnknownAutomated blood eosinophils/100 rhoxtujrph5827-78-89 05:10:00Identifier 713-8 Result Time 2018-12-31 05:10:00Unknown Test [...] = 731-0) Ordering Physician UnknownAutomated blood lymphocytes/100 arpfacazay1930-01-48 05:10:00Identifier 736-9 Result Time 2018-12-31 05:10:00Unknown Test Item Value Reference Range Comments Automated blood lymphocytes/100 leukocytes 3.7 % Unknown Unknown F (test code = 736-9) Ordering Physician UnknownBlood monocytes automated count (number/volume)2018-12 05:10:00Identifier 742-7 Result Time 2018-12-31 05:10:00Unknown Test Item Value Reference Range Comments Blood monocytes automated count 0.5 10^3/ul Unknown Unknown F (number/volume) (test code = 742-7) Ordering Physician UnknownAutomated blood neutrophils/100 otszrbtycw6047-43-69 05:10:00Identifier 770-8 Result Time 2018-12-31 05:10:00Unknown Test [...] UnknownAutomated erythrocyte mean corpuscular hemoglobin concentration measurement (mass/lol1763-67-37 05:10:00Identifier 786-4 Result Time 2018-12-31 05:10:00Unknown Test Item Value Reference Range Comments Automated erythrocyte mean corpuscular 35 g/dL Unknown Unknown F hemoglobin concentration measurement (mass/vol (test code = 786-4) Ordering Physician UnknownAutomated erythrocyte mean corpuscular qtzhld9309-37- 18 05:10:00Identifier 787-2 Result Time 2018-12-31 05:10:00Unknown Test Item Value Reference Range Comments Automated erythrocyte mean corpuscular volume 95 fL Unknown Unknown F (test code = 787-2) Ordering Physician UnknownAutomated erythrocyte distribution width uajjq5258-70- 18 05:10:00Identifier 788-0 Result Time 2018-12-31 05:10:00Unknown [...] code = 789-8) Ordering Physician UnknownCT biopsy xlnze2087-67-21 05:10:00Identifier [id number] Result Time 2018-12-31 05:10:00Unknown Test Item Value Reference Range Comments CT biopsy liver (test code = MAK3619) 3.6 10^3/ul Unknown Unknown F Ordering Physician UnknownSerum or plasma alanine aminotransferase measurement ( enzymatic activity/volume)2018-12-29 06:15:00Identifier 1742-6 Result Time 12-29 06:15:00Unknown Test Item Value Reference Range Comments Serum or plasma alanine aminotransferase 13 U/L Unknown Unknown F measurement (enzymatic activity/volume) (test code = 1742-6) Ordering Physician UnknownSerum or plasma albumin/globulin mass iyusv5028-65-02 06:15:00Identifier 1759-0 Result Time 2018-12-29 06:15:00Unknown Test [...] (test code = 2885-2) Ordering Physician UnknownVancomycin pozbwe3298-45-41 06:15:00Identifier 4092-3 Result Time 2018-12-29 06:15:00Unknown Test Item Value Reference Range Comments Vancomycin trough (test code = 4092-3) 11.1 mcg/mL Unknown Unknown F Ordering Physician UnknownSerum or plasma albumin measurement by bromocresol green (BCG) dye binding method (cr9674-80-68 06:15:00Identifier 65710-7 Result Time 2018-12-29 06:15:00Unknown Test Item Value Reference Range Comments Serum or plasma albumin measurement by 3.0 g/dL Unknown Unknown F bromocresol green (BCG) dye binding method (ma (test code = 53588-0) Ordering Physician UnknownSerum or plasma alkaline phosphatase measurement ( enzymatic activity/volume)2018-12-29 06:15:00Identifier 6768-6 Result Time 12-29 06:15:00Unknown Test Item Value Reference Range Comments Serum or plasma alkaline phosphatase 66 U/L Unknown Unknown F measurement (enzymatic activity/volume) (test code = 6768-6) Ordering Physician UnknownRoutine wound idfdegx5923-38-25 10:50:00Identifier 6462-6 Result Time 2018-12-28 10:50:00Unknown Test Item Value Reference Range Comments Wound Culture (test code = Pseudomonas Aeruginosa Unknown Unknown F Wound Culture) Ordering Physician Unknown
--- OUTSIDE RECORDS SUMMARY | 2019-01-22 18:55 | XMS REPORT ---
:1950 Author Organization [facility] Care Team Providers Name Role Phone Unavailable [...] Serum or plasma calcium 2018-12-31 05:10:00 Identifier 48736-7 Result Unknown measurement (mass/volume) Time 2018-12-31 05:10:00 Test Item Value Reference Range Comments Serum or plasma calcium measurement (mass/volume) (test 8.1 mg/dL Unknown Unknown F code = 09909-4) Ordering Physician UnknownSerum or plasma carbon dioxide, [...] Ordering Physician UnknownSerum or plasma urea nitrogen/creatinine dteuq3156-34- 18 05:10:00Identifier 3097-3 Result Time 2018-12-31 05:10:00Unknown Test Item Value Reference Range Comments Serum or plasma urea nitrogen/creatinine ratio 9.7 Unknown Unknown F (test code = 3097-3) Ordering Physician UnknownAutomated blood platelet mean volume dhrppiurdns3964- 11-18 05:10:00Identifier 97591-6 Result Time 2018-12-31 05:10:00Unknown Test Item Value Reference Range Comments Automated blood platelet mean volume 8.6 fL Unknown Unknown F measurement (test code = 58711-4) Ordering Physician UnknownSerum or plasma anion hce2744-02-56 05:10: 00Identifier 65788-8 Result Time 2018-12-31 05:10:00Unknown Test Item Value Reference Range Comments Serum or plasma anion gap (test code = 5 mmol/L Unknown Unknown F 51732-8) Ordering Physician UnknownAutomated blood leukocytes count corrected for nucleated erythrocytes (number/volume)2018-12-31 05:10:00Identifier 03013-7 Result Time 2018-12-31 05:10:00Unknown Test Item Value Reference Range Comments Automated blood leukocytes count 4.4 10^3/uL Unknown Unknown F corrected for nucleated erythrocytes (number/volume) (test code = 65535-6) Ordering Physician UnknownAutomated blood nucleated erythrocytes xatejuzwg8373- 11-18 05:10:00Identifier 78642-4 Result Time 2018-12-31 05:10:00Unknown Test Item Value Reference Range Comments Automated blood nucleated erythrocytes 0.0 Unknown Unknown F detection (test code = 61061-2) Ordering Physician UnknownAutomated blood hematocrit (percentage)2018-12-31 05: 10:00Identifier 4544-3 Result Time 2018-12-31 05:10:00Unknown Test Item Value Reference Range Comments Automated blood hematocrit (percentage) (test 31 % Unknown Unknown F code = 4544-3) Ordering Physician UnknownEstimated glomerular filtration rate (GFR) non- Lzrhwoww8046-99-37 05:10:00Identifier 38270-9 Result Time 2018-12-31 05: 10:00Unknown Test Item Value Reference Range Comments Estimated glomerular filtration rate (GFR) 108.9 Unknown Unknown F non- (test code = 42401-2) Ordering Physician UnknownAutomated blood monocytes/100 dgdgfybdyu4877-60-26 05: 10:00Identifier 5905-5 Result Time 2018-12-31 05:10:00Unknown [...] = 704-7) Ordering Physician UnknownAutomated blood basophils/100 xmlggwlblu5745-13-91 05: 10:00Identifier 706-2 Result Time 2018-12-31 05:10:00Unknown [...] = 711-2) Ordering Physician UnknownAutomated blood eosinophils/100 pdbpymyuqd1383-70-52 05:10:00Identifier 713-8 Result Time 2018-12-31 05:10:00Unknown Test [...] = 731-0) Ordering Physician UnknownAutomated blood lymphocytes/100 jbhovwqlto4714-12-26 05:10:00Identifier 736-9 Result Time 2018-12-31 05:10:00Unknown Test Item Value Reference Range Comments Automated blood lymphocytes/100 leukocytes 3.7 % Unknown Unknown F (test code = 736-9) Ordering Physician UnknownBlood monocytes automated count (number/volume)2018-12 05:10:00Identifier 742-7 Result Time 2018-12-31 05:10:00Unknown Test Item Value Reference Range Comments Blood monocytes automated count 0.5 10^3/ul Unknown Unknown F (number/volume) (test code = 742-7) Ordering Physician UnknownAutomated blood neutrophils/100 wwbzjqwsuk4820-15-21 05:10:00Identifier 770-8 Result Time 2018-12-31 05:10:00Unknown Test [...] UnknownAutomated erythrocyte mean corpuscular hemoglobin concentration measurement (mass/hew6671-98-11 05:10:00Identifier 786-4 Result Time 2018-12-31 05:10:00Unknown Test Item Value Reference Range Comments Automated erythrocyte mean corpuscular 35 g/dL Unknown Unknown F hemoglobin concentration measurement (mass/vol (test code = 786-4) Ordering Physician UnknownAutomated erythrocyte mean corpuscular bprpur9876-58- 18 05:10:00Identifier 787-2 Result Time 2018-12-31 05:10:00Unknown Test Item Value Reference Range Comments Automated erythrocyte mean corpuscular volume 95 fL Unknown Unknown F (test code = 787-2) Ordering Physician UnknownAutomated erythrocyte distribution width sakog3590-35- 18 05:10:00Identifier 788-0 Result Time 2018-12-31 05:10:00Unknown [...] code = 789-8) Ordering Physician UnknownCT biopsy ddydz6554-38-25 05:10:00Identifier PAW2686 Result Time 2018-12-31 05:10:00Unknown Test Item Value Reference Range Comments CT biopsy liver (test code = VRX2970) 3.6 10^3/ul Unknown Unknown F Ordering Physician UnknownSerum or plasma alanine aminotransferase measurement ( enzymatic activity/volume)2018-12-29 06:15:00Identifier 1742-6 Result Time 12-29 06:15:00Unknown Test Item Value Reference Range Comments Serum or plasma alanine aminotransferase 13 U/L Unknown Unknown F measurement (enzymatic activity/volume) (test code = 1742-6) Ordering Physician UnknownSerum or plasma albumin/globulin mass bkzym2535-28-07 06:15:00Identifier 1759-0 Result Time 2018-12-29 06:15:00Unknown Test [...] (test code = 2885-2) Ordering Physician UnknownVancomycin wcldji4653-48-14 06:15:00Identifier 4092-3 Result Time 2018-12-29 06:15:00Unknown Test Item Value Reference Range Comments Vancomycin trough (test code = 4092-3) 11.1 mcg/mL Unknown Unknown F Ordering Physician UnknownSerum or plasma albumin measurement by bromocresol green (BCG) dye binding method (jk4351-20-78 06:15:00Identifier 89738-4 Result Time 2018-12-29 06:15:00Unknown Test Item Value Reference Range Comments Serum or plasma albumin measurement by 3.0 g/dL Unknown Unknown F bromocresol green (BCG) dye binding method (ma (test code = 01232-5) Ordering Physician UnknownSerum or plasma alkaline phosphatase measurement ( enzymatic activity/volume)2018-12-29 06:15:00Identifier 6768-6 Result Time 12-29 06:15:00Unknown Test Item Value Reference Range Comments Serum or plasma alkaline phosphatase 66 U/L Unknown Unknown F measurement (enzymatic activity/volume) (test code = 6768-6) Ordering Physician UnknownRoutine wound owplxsv5904-36-43 10:50:00Identifier 6462-6 Result Time 2018-12-28 10:50:00Unknown Test Item Value Reference Range Comments Wound Culture (test code = Pseudomonas Aeruginosa Unknown Unknown F Wound Culture) Ordering Physician Unknown
--- OUTSIDE RECORDS SUMMARY | 2019-01-22 18:55 | XMS REPORT ---
:1950 Author Organization [facility] Care Team Providers Name Role Phone Unavailable [...] Serum or plasma calcium 2018-12-31 05:10:00 Identifier 20291-3 Result Unknown measurement (mass/volume) Time 2018-12-31 05:10:00 Test Item Value Reference Range Comments Serum or plasma calcium measurement (mass/volume) (test 8.1 mg/dL Unknown Unknown F code = 28755-7) Ordering Physician UnknownSerum or plasma carbon dioxide, [...] Ordering Physician UnknownSerum or plasma urea nitrogen/creatinine anogl1115-81- 18 05:10:00Identifier 3097-3 Result Time 2018-12-31 05:10:00Unknown Test Item Value Reference Range Comments Serum or plasma urea nitrogen/creatinine ratio 9.7 Unknown Unknown F (test code = 3097-3) Ordering Physician UnknownAutomated blood platelet mean volume fkqsjyvfzfj4755- 11-18 05:10:00Identifier 83699-4 Result Time 2018-12-31 05:10:00Unknown Test Item Value Reference Range Comments Automated blood platelet mean volume 8.6 fL Unknown Unknown F measurement (test code = 49690-7) Ordering Physician UnknownSerum or plasma anion oir7750-45-25 05:10: 00Identifier 16109-8 Result Time 2018-12-31 05:10:00Unknown Test Item Value Reference Range Comments Serum or plasma anion gap (test code = 5 mmol/L Unknown Unknown F 07472-7) Ordering Physician UnknownAutomated blood leukocytes count corrected for nucleated erythrocytes (number/volume)2018-12-31 05:10:00Identifier 76360-6 Result Time 2018-12-31 05:10:00Unknown Test Item Value Reference Range Comments Automated blood leukocytes count 4.4 10^3/uL Unknown Unknown F corrected for nucleated erythrocytes (number/volume) (test code = 57105-0) Ordering Physician UnknownAutomated blood nucleated erythrocytes eildrgpqm9697- 11-18 05:10:00Identifier 36861-4 Result Time 2018-12-31 05:10:00Unknown Test Item Value Reference Range Comments Automated blood nucleated erythrocytes 0.0 Unknown Unknown F detection (test code = 51187-5) Ordering Physician UnknownAutomated blood hematocrit (percentage)2018-12-31 05: 10:00Identifier 4544-3 Result Time 2018-12-31 05:10:00Unknown Test Item Value Reference Range Comments Automated blood hematocrit (percentage) (test 31 % Unknown Unknown F code = 4544-3) Ordering Physician UnknownEstimated glomerular filtration rate (GFR) non- Uwbbiotx3108-83-17 05:10:00Identifier 52139-0 Result Time 2018-12-31 05: 10:00Unknown Test Item Value Reference Range Comments Estimated glomerular filtration rate (GFR) 108.9 Unknown Unknown F non- (test code = 50626-9) Ordering Physician UnknownAutomated blood monocytes/100 bmksinxfwf8749-26-74 05: 10:00Identifier 5905-5 Result Time 2018-12-31 05:10:00Unknown [...] = 704-7) Ordering Physician UnknownAutomated blood basophils/100 rszwavzfvo8014-30-61 05: 10:00Identifier 706-2 Result Time 2018-12-31 05:10:00Unknown [...] = 711-2) Ordering Physician UnknownAutomated blood eosinophils/100 auxhekhfzr3297-68-84 05:10:00Identifier 713-8 Result Time 2018-12-31 05:10:00Unknown Test [...] = 731-0) Ordering Physician UnknownAutomated blood lymphocytes/100 djlzvzjzdr0144-00-85 05:10:00Identifier 736-9 Result Time 2018-12-31 05:10:00Unknown Test Item Value Reference Range Comments Automated blood lymphocytes/100 leukocytes 3.7 % Unknown Unknown F (test code = 736-9) Ordering Physician UnknownBlood monocytes automated count (number/volume)2018-12 05:10:00Identifier 742-7 Result Time 2018-12-31 05:10:00Unknown Test Item Value Reference Range Comments Blood monocytes automated count 0.5 10^3/ul Unknown Unknown F (number/volume) (test code = 742-7) Ordering Physician UnknownAutomated blood neutrophils/100 amhzkdnrrr1743-07-57 05:10:00Identifier 770-8 Result Time 2018-12-31 05:10:00Unknown Test [...] UnknownAutomated erythrocyte mean corpuscular hemoglobin concentration measurement (mass/xbo1606-50-64 05:10:00Identifier 786-4 Result Time 2018-12-31 05:10:00Unknown Test Item Value Reference Range Comments Automated erythrocyte mean corpuscular 35 g/dL Unknown Unknown F hemoglobin concentration measurement (mass/vol (test code = 786-4) Ordering Physician UnknownAutomated erythrocyte mean corpuscular xasgxx3400-49- 18 05:10:00Identifier 787-2 Result Time 2018-12-31 05:10:00Unknown Test Item Value Reference Range Comments Automated erythrocyte mean corpuscular volume 95 fL Unknown Unknown F (test code = 787-2) Ordering Physician UnknownAutomated erythrocyte distribution width prykx2238-96- 18 05:10:00Identifier 788-0 Result Time 2018-12-31 05:10:00Unknown [...] code = 789-8) Ordering Physician UnknownCT biopsy ygzbl8355-83-14 05:10:00Identifier VLV3889 Result Time 2018-12-31 05:10:00Unknown Test Item Value Reference Range Comments CT biopsy liver (test code = JTF7925) 3.6 10^3/ul Unknown Unknown F Ordering Physician UnknownSerum or plasma alanine aminotransferase measurement ( enzymatic activity/volume)2018-12-29 06:15:00Identifier 1742-6 Result Time 12-29 06:15:00Unknown Test Item Value Reference Range Comments Serum or plasma alanine aminotransferase 13 U/L Unknown Unknown F measurement (enzymatic activity/volume) (test code = 1742-6) Ordering Physician UnknownSerum or plasma albumin/globulin mass rllfh2704-35-19 06:15:00Identifier 1759-0 Result Time 2018-12-29 06:15:00Unknown Test [...] (test code = 2885-2) Ordering Physician UnknownVancomycin zuqllf Identifier 4092-3 Result Time 2018-12-29 06:15:00Unknown Test Item Value Reference Range Comments Vancomycin trough (test code = 4092-3) 11.1 mcg/mL Unknown Unknown F Ordering Physician UnknownSerum or plasma albumin measurement by bromocresol green (BCG) dye binding method (ae5980-73-54 06:15:00Identifier 23757-1 Result Time 2018-12-29 06:15:00Unknown Test Item Value Reference Range Comments Serum or plasma albumin measurement by 3.0 g/dL Unknown Unknown F bromocresol green (BCG) dye binding method (ma (test code = 32937-6) Ordering Physician UnknownSerum or plasma alkaline phosphatase measurement ( enzymatic activity/volume)2018-12-29 06:15:00Identifier 6768-6 Result Time 12-29 06:15:00Unknown Test Item Value Reference Range Comments Serum or plasma alkaline phosphatase 66 U/L Unknown Unknown F measurement (enzymatic activity/volume) (test code = 6768-6) Ordering Physician UnknownRoutine wound ylutopm5703-74-45 10:50:00Identifier 6462-6 Result Time 2018-12-28 10:50:00Unknown Test Item Value Reference Range Comments Wound Culture (test code = Pseudomonas Aeruginosa Unknown Unknown F Wound Culture) Ordering Physician Unknown
--- OUTSIDE RECORDS SUMMARY | 2019-01-22 18:55 | XMS REPORT ---
:1950 Author Organization [facility] Care Team Providers Name Role Phone Unavailable [...] Serum or plasma calcium 2018-12-31 05:10:00 Identifier [id number] Result Unknown measurement (mass/volume) Time 2018-12-31 05:10:00 Test Item Value Reference Range Comments Serum or plasma calcium measurement (mass/volume) (test 8.1 mg/dL Unknown Unknown F code = 44504-4) Ordering Physician UnknownSerum or plasma carbon dioxide, [...] Ordering Physician UnknownSerum or plasma urea nitrogen/creatinine [id number]- 18 05:10:00Identifier 3097-3 Result Time 2018-12-31 05:10:00Unknown Test Item Value Reference Range Comments Serum or plasma urea nitrogen/creatinine ratio 9.7 Unknown Unknown F (test code = 3097-3) Ordering Physician UnknownAutomated blood platelet mean volume [id number]- 11-18 05:10:00Identifier [id number] Result Time 2018-12-31 05:10:00Unknown Test Item Value Reference Range Comments Automated blood platelet mean volume 8.6 fL Unknown Unknown F measurement (test code = 78756-9) Ordering Physician UnknownSerum or plasma anion [id number] 05:10: 00Identifier [id number] Result Time 2018-12-31 05:10:00Unknown Test Item Value Reference Range Comments Serum or plasma anion gap (test code = 5 mmol/L Unknown Unknown F 32360-8) Ordering Physician UnknownAutomated blood leukocytes count corrected for nucleated erythrocytes (number/volume)2018-12-31 05:10:00Identifier 87743-8 Result Time 2018-12-31 05:10:00Unknown Test Item Value Reference Range Comments Automated blood leukocytes count 4.4 10^3/uL Unknown Unknown F corrected for nucleated erythrocytes (number/volume) (test code = 36669-1) Ordering Physician UnknownAutomated blood nucleated erythrocytes [id number]- 11-18 05:10:00Identifier 28373-4 Result Time 2018-12-31 05:10:00Unknown Test Item Value Reference Range Comments Automated blood nucleated erythrocytes 0.0 Unknown Unknown F detection (test code = 31281-5) Ordering Physician UnknownAutomated blood hematocrit (percentage)2018-12-31 05: 10:00Identifier 4544-3 Result Time 2018-12-31 05:10:00Unknown Test Item Value Reference Range Comments Automated blood hematocrit (percentage) (test 31 % Unknown Unknown F code = 4544-3) Ordering Physician UnknownEstimated glomerular filtration rate (GFR) non- Saufwrxp8499-89-01 05:10:00Identifier [id number] Result Time 2018-12-31 05: 10:00Unknown Test Item Value Reference Range Comments Estimated glomerular filtration rate (GFR) 108.9 Unknown Unknown F non- (test code = 33001-8) Ordering Physician UnknownAutomated blood monocytes/100 [id number] 05: 10:00Identifier 5905-5 Result Time 2018-12-31 05:10:00Unknown [...] = 704-7) Ordering Physician UnknownAutomated blood basophils/100 [id number] 05: 10:00Identifier 706-2 Result Time 2018-12-31 05:10:00Unknown [...] = 711-2) Ordering Physician UnknownAutomated blood eosinophils/100 sohttposed9199-02-32 05:10:00Identifier 713-8 Result Time 2018-12-31 05:10:00Unknown Test [...] = 731-0) Ordering Physician UnknownAutomated blood lymphocytes/100 ularqfonpj1388-83-35 05:10:00Identifier 736-9 Result Time 2018-12-31 05:10:00Unknown Test Item Value Reference Range Comments Automated blood lymphocytes/100 leukocytes 3.7 % Unknown Unknown F (test code = 736-9) Ordering Physician UnknownBlood monocytes automated count (number/volume)2018-12 05:10:00Identifier 742-7 Result Time 2018-12-31 05:10:00Unknown Test Item Value Reference Range Comments Blood monocytes automated count 0.5 10^3/ul Unknown Unknown F (number/volume) (test code = 742-7) Ordering Physician UnknownAutomated blood neutrophils/100 [id number] 05:10:00Identifier 770-8 Result Time 2018-12-31 05:10:00Unknown Test [...] UnknownAutomated erythrocyte mean corpuscular hemoglobin concentration measurement (mass/vqx7146-65-61 05:10:00Identifier 786-4 Result Time 2018-12-31 05:10:00Unknown Test Item Value Reference Range Comments Automated erythrocyte mean corpuscular 35 g/dL Unknown Unknown F hemoglobin concentration measurement (mass/vol (test code = 786-4) Ordering Physician UnknownAutomated erythrocyte mean corpuscular [id number]- 18 05:10:00Identifier 787-2 Result Time 2018-12-31 05:10:00Unknown Test Item Value Reference Range Comments Automated erythrocyte mean corpuscular volume 95 fL Unknown Unknown F (test code = 787-2) Ordering Physician UnknownAutomated erythrocyte distribution width [id number]- 18 05:10:00Identifier 788-0 Result Time 2018-12-31 05:10:00Unknown [...] code = 789-8) Ordering Physician UnknownCT biopsy [id number] 05:10:00Identifier [id number] Result Time 2018-12-31 05:10:00Unknown Test Item Value Reference Range Comments CT biopsy liver (test code = GLA8246) 3.6 10^3/ul Unknown Unknown F Ordering Physician UnknownSerum or plasma alanine aminotransferase measurement ( enzymatic activity/volume)2018-12-29 06:15:00Identifier 1742-6 Result Time 12-29 06:15:00Unknown Test Item Value Reference Range Comments Serum or plasma alanine aminotransferase 13 U/L Unknown Unknown F measurement (enzymatic activity/volume) (test code = 1742-6) Ordering Physician UnknownSerum or plasma albumin/globulin mass [id number] 06:15:00Identifier 1759-0 Result Time 2018-12-29 06:15:00Unknown Test [...] (test code = 2885-2) Ordering Physician UnknownVancomycin [id number] 06:15:00Identifier 4092-3 Result Time 2018-12-29 06:15:00Unknown Test Item Value Reference Range Comments Vancomycin trough (test code = 4092-3) 11.1 mcg/mL Unknown Unknown F Ordering Physician UnknownSerum or plasma albumin measurement by bromocresol green (BCG) dye binding method ([id number] 06:15:00Identifier [id number] Result Time 2018-12-29 06:15:00Unknown Test Item Value Reference Range Comments Serum or plasma albumin measurement by 3.0 g/dL Unknown Unknown F bromocresol green (BCG) dye binding method (ma (test code = 16761-4) Ordering Physician UnknownSerum or plasma alkaline phosphatase measurement ( enzymatic activity/volume)2018-12-29 06:15:00Identifier 6768-6 Result Time 12-29 06:15:00Unknown Test Item Value Reference Range Comments Serum or plasma alkaline phosphatase 66 U/L Unknown Unknown F measurement (enzymatic activity/volume) (test code = 6768-6) Ordering Physician UnknownRoutine wound [id number] 10:50:00Identifier 6462-6 Result Time 2018-12-28 10:50:00Unknown Test Item Value Reference Range Comments Wound Culture (test code = Pseudomonas Aeruginosa Unknown Unknown F Wound Culture) Ordering Physician Unknown
[2019-01-22 20:53] LABS: ABS Eosinophils 0.1 10^3/ul (0-0.6); ABS Lymphocytes 0.3 10^3/ul (1.0-4.8); ABS Monocytes 0.7 10^3/ul (0-0.8); ABS Neutrophils 8.5 10^3/ul (1.5-7.7); Eosinophil % 1.1 %; Hematocrit 35 % (42-52); Hemoglobin 11.9 g/dL (14.0-18.0); Mean Corpuscular HGB Conc 34 g/dL (31-36); Mean Corpuscular Hemoglobin 32 pg (27-31); Mean Corpuscular Volume 95 fL (80-94); Platelet Count 143 10^3/uL (150-450); Red Blood Count 3.73 10^6 /uL (4.18-5.48); Red Cell Distribution Width 23 % (10-15); White Blood Count 9.6 10^3/uL (3.5-10.8)
[2019-01-22 21:00] LABS: Activated Partial Thrombo Time 33.2 seconds (26.0-38.0); INR 1.14 (0.82-1.09)
[2019-01-22 21:09] LABS: Albumin 3.2 g/dL (3.2-5.2); Albumin/Globulin Ratio 0.9 (1-3); C Reactive Protein 58.66 mg/L (<8.01); Calcium 8.5 mg/dL (8.6-10.3); EGFR African American 153.7 (>60); Globulin 3.4 g/dL (2-4); Potassium 3.7 mmol/L (3.5-5.0); Total Bilirubin 0.5 mg/dL (0.2-1.0); Total Protein 6.6 g/dL (6.4-8.9)
[2019-01-22] MEDS ORDERED: Cefepime 2 GM in Dextrose(*) 2 GM/50 ML BAG IV ONE (23:39)
--- NOTE | 2019-01-23 00:49 | ED ---
Skin Complaint - HPI Summary HPI Summary: 68-year-old male presents with rash on right foot today. Last month he was treated for diabetic ulcer with cellulitis of his right foot. He was sent home on Levaquin as grew pseudomonas. He states that he was having improvement and was changing his bandages daily. Daughter who has been changing the dressing says the past three days looked like ulcer was getting bigger. today had some spreading redness around the area. He has been having pain into his calf. 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 He has a follow-up with wound clinic on Monday. He is not currently on antibiotics. No fevers or chills. Is not currently on chemo or radiation. Has history of rectal cancer. - History of Current Complaint Chief Complaint: EDExtremityLower Time Seen by Provider: 01/22/19 23:28 Stated Complaint: POSS INFECTION PER PT Pain Intensity: 0 - Additional Pertinent History Primary Care Physician: DISHA - Allergy/Home Medications Allergies/Adverse Reactions: Allergies Allergy/AdvReac Type Severity Reaction Status Date / Time No Known Allergies Allergy Verified 01/22/19 18:47 Home Medications: Home Medications Cyclobenzaprine TAB* [Flexeril 10 MG TAB*] 10 mg PO TID PRN 01/22/19 [History Confirmed 01/22/19] Ondansetron TAB* [Zofran 4 MG Tab*] 4 mg PO Q6H PRN 01/22/19 [History Confirmed 01/22/19] Prochlorperazine TAB* [Compazine Tab*] 10 mg PO Q6H PRN 01/22/19 [History Confirmed 01/22/19] Tramadol HCl 50 mg PO TID PRN 01/22/19 [History Confirmed 01/22/19] PMH/Surg Hx/FS Hx/Imm Hx Endocrine/Hematology History: Reports: Hx Diabetes - TYPE 11 DIET CONTROL FINGER STICKS DAILY Denies: Hx Anticoagulant Therapy, Hx Thyroid Disease Cardiovascular History: Reports: Other Cardiovascular Problems/Disorders - HIGH CHOLESTEROL Denies: Hx Hypertension, Hx Pacemaker/ICD Respiratory History: Denies: Hx Asthma GI History: Reports: Other GI Disorders - RECTAL BLEEDING History: Denies: Hx Renal Disease Sensory History: Reports: Hx Cataracts, Hx Contacts or Glasses, Hx Glaucoma - BILATERAL, STARTED ON DROPE 01/14/15 Denies: Hx Hearing Aid Opthamlomology History: Reports: Hx Cataracts, Hx Contacts or Glasses, Hx Glaucoma - BILATERAL, STARTED ON DROPE 01/14/15 Neurological History: Denies: Hx Seizures Psychiatric History: Denies: Hx Panic Disorder, Hx Substance Abuse - Cancer History Cancer Type, Location and Year: RECTAL CA - Surgical History Surgery Procedure, Year, and Place: 1958 [facility] OFFICE. 1965 APPENDECTOMY OPAL. CATARACT 2015 [facility]. PORT PLACEMENT Hx Anesthesia Reactions: No Infectious Disease History: No Infectious Disease History: Denies: Hx Hepatitis, Hx Human Immunodeficiency Virus (HIV), Traveled Outside the [place] in Last 30 Days - Family History Known Family History: Positive: Other - Patient denies relevant FHx - Social History Alcohol Use: Rare Alcohol Amount: 1-2 BEERS Substance Use Type: Reports: None Smoking Status (MU): Former Smoker Type: Cigarettes Amount Used/How Often: 2PPD 30YRS Length of Time of Smoking/Using Tobacco: 30 YRS Have You Smoked in the Last Year: No Review of Systems Negative: Fever Negative: Chest Pain Negative: Shortness Of Breath Positive: Rash All Other Systems Reviewed And Are Negative: Yes Physical Exam Triage Information Reviewed: Yes Vital Signs On Initial Exam: Initial Vitals Temp Pulse Resp BP Pulse Ox 99.3 F 88 16 101/60 98 01/22/19 18:43 01/22/19 18:43 01/22/19 18:43 01/22/19 18:43 01/22/19 18:43 Vital Signs Reviewed: Yes Appearance: Positive: Well-Appearing Skin: Positive: Warm, Dry, Other - diabetic ulcer with minimial erythema on dorsum of right great toe Head/Face: Positive: Normal Head/Face Inspection Eyes: Positive: Normal, Conjunctiva Clear ENT: Positive: Pharynx normal Respiratory/Lung Sounds: Positive: Clear to Auscultation, Breath Sounds Present Cardiovascular: Positive: Normal, RRR Musculoskeletal: Positive: Strength/ROM Intact - right foot, Other - good pulses , no sensation at baseline Neurological: Positive: Normal Psychiatric: Positive: Normal Procedures - Sedation Patient Received Moderate/Deep Sedation with Procedure: No Diagnostics - Vital Signs Vital Signs Temp Pulse Resp BP Pulse Ox 01/22/19 22:49 99.1 F 80 16 105/76 98 01/22/19 20:47 99.8 F 85 16 107/59 98 12/10/19 18:43 99.3 F 88 16 101/60 98 - Laboratory Lab Results: Lab Results 01/22/19 01/22/19 01/22/19 Range/Units 20:37 20:37 20:37 WBC 9.6 (3.5-10.8) 10^3/uL RBC 3.73 L (4.18-5.48) 10^6 /uL Hgb 11.9 L (14.0-18.0) g/dL Hct 35 L (42-52) % MCV 95 H (80-94) fL MCH 32 H (27-31) pg MCHC 34 (31-36) g/dL RDW 23 H (10-15) % Plt Count 143 L (150-450) 10^3/uL MPV 9.0 (7.4-10.4) fL Neut % (Auto) 88.6 % Lymph % (Auto) 3.0 % Evangeline % (Auto) 6.9 % Eos % (Auto) 1.1 % Baso % (Auto) 0.4 % Absolute Neuts (auto) 8.5 H (1.5-7.7) 10^3/ul Absolute Lymphs (auto) 0.3 L (1.0-4.8) 10^3/ul Absolute Monos (auto) 0.7 (0-0.8) 10^3/ul Absolute Eos (auto) 0.1 (0-0.6) 10^3/ul Absolute Basos (auto) 0.0 (0-0.2) 10^3/ul Absolute Nucleated RBC 0.0 10^3/ul Nucleated RBC % 0.0 INR (Anticoag Therapy) 1.14 H (0.82-1.09) APTT 33.2 (26.0-38.0) seconds Sodium 138 (135-145) mmol/L Potassium 3.7 (3.5-5.0) mmol/L Chloride 100 L (101-111) mmol/L Carbon Dioxide 31 (22-32) mmol/L Anion Gap 7 (2-11) mmol/L BUN 17 (6-24) mg/dL Creatinine 0.63 L (0.67-1.17) mg/dL Est GFR ( Amer) 153.7 (>60) Est GFR (Non-Af Amer) 127.0 (>60) BUN/Creatinine Ratio 27.0 H (8-20) Glucose 129 H (70-100) mg/dL Lactic Acid (0.5-2.0) mmol/L Calcium 8.5 L (8.6-10.3) mg/dL Total Bilirubin 0.50 (0.2-1.0) mg/dL AST 24 (13-39) U/L ALT 29 (7-52) U/L Alkaline Phosphatase 81 (34-104) U/L C-Reactive Protein 58.66 H (<8.01) mg/L Total Protein 6.6 (6.4-8.9) g/dL Albumin 3.2 (3.2-5.2) g/dL Globulin 3.4 (2-4) g/dL Albumin/Globulin Ratio 0.9 L (1-3) 01/22/19 Range/Units 20:37 WBC (3.5-10.8) 10^3/uL RBC (4.18-5.48) 10^6 /uL Hgb (14.0-18.0) g/dL Hct (42-52) % MCV (80-94) fL MCH (27-31) pg MCHC (31-36) g/dL RDW (10-15) % Plt Count (150-450) 10^3/uL MPV (7.4-10.4) fL Neut % (Auto) % Lymph % (Auto) % Evangeline % (Auto) % Eos % (Auto) % Baso % (Auto) % Absolute Neuts (auto) (1.5-7.7) 10^3/ul Absolute Lymphs (auto) (1.0-4.8) 10^3/ul Absolute Monos (auto) (0-0.8) 10^3/ul Absolute Eos (auto) (0-0.6) 10^3/ul Absolute Basos (auto) (0-0.2) 10^3/ul Absolute Nucleated RBC 10^3/ul Nucleated RBC % INR (Anticoag Therapy) (0.82-1.09) APTT (26.0-38.0) seconds Sodium (135-145) mmol/L Potassium (3.5-5.0) mmol/L Chloride (101-111) mmol/L Carbon Dioxide (22-32) mmol/L Anion Gap (2-11) mmol/L BUN (6-24) mg/dL Creatinine (0.67-1.17) mg/dL Est GFR ( Amer) (>60) Est GFR (Non-Af Amer) (>60) BUN/Creatinine Ratio (8-20) Glucose (70-100) mg/dL Lactic Acid 1.0 (0.5-2.0) mmol/L Calcium (8.6-10.3) mg/dL Total Bilirubin (0.2-1.0) mg/dL AST (13-39) U/L ALT (7-52) U/L Alkaline Phosphatase (34-104) U/L C-Reactive Protein (<8.01) mg/L Total Protein (6.4-8.9) g/dL Albumin (3.2-5.2) g/dL Globulin (2-4) g/dL Albumin/Globulin Ratio (1-3) Result Diagrams: 01/22/19 20:37 01/22/19 20:37 Lab Statement: Any lab studies that have been ordered have been reviewed, and results considered in the medical decision making process. - Radiology foot Radiology Interpretation Completed By: ED Physician Summary of Radiographic Findings: no osteo on xray - Ultrasound No standard instances Ultrasound Interpretation Completed By: Radiologist Summary of Ultrasound Findings: IMPRESSION: No acute findings. No evidence of deep vein thrombosis. Course/Dx - Course Course Of Treatment: 68-year-old male presents with rash on right foot today. Last month he was treated for diabetic ulcer with cellulitis of his right foot. He was sent home on Levaquin as grew pseudomonas. He states that he was having improvement and was changing his bandages daily. Daughter who has been changing the dressing says the past three days looked like ulcer was getting bigger. today had some spreading redness around the area. He has been having pain into his calf. 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 He has a follow-up with wound clinic on Monday. He is not currently on antibiotics. No fevers or chills. Is not currently on chemo or radiation. Has history of rectal cancer. On exam has diabetic ulcer to dorsum of right foot with minimal erythema. wbc normal. Gave a dose of cefepime as was sensitive to with previous culture. We'll place again on Levaquin again. Told to follow up with wound clinic and primary. told return if develop fever or worsening redness to return. Patient understands and agrees the plan. - Differential Diagnoses - Skin Complaint Differential Diagnoses: Abscess, Cellulitis, Contact Dermatitis - Diagnoses Provider Diagnoses: Foot ulcer, Cellulitis Discharge ED - Sign-Out/Discharge Documenting (check all that apply): Patient Departure - Discharge Plan Condition: Good Disposition: HOME Patient Education Materials: Cellulitis (ED) Referrals: Kevin King NP [Primary Care Provider] - Additional Instructions: take levaquin once a day for 10 days continue dressing changes Follow up with wound clinic and primary within 2 days Return to ED if develop fever, spreading redness or any new or worsening symptoms - Billing Disposition and Condition Condition: GOOD Disposition: Home
[2019-01-23] MEDS ORDERED: Levofloxacin TAB* 250 MG PO ONE (01:44)
[2019-01-23 02:22] VITALS: BP 111/57
--- NOTE | 2019-01-23 06:59 | ED ---
Imaging and Labs Follow Up Follow Up Type: Labs/Cultures Labs/Culture Result: Wound culture of the right foot returned positive for MSSA and negative for MRSA. Patient Communication/Plan: Patient treated with Levaquin which is presumed appropriate for positive MSSA and negative MRSA. Pending sensitivity report. Nothing further at this time. Provider Diagnoses: Foot ulcer, Cellulitis
== END 2019-01-23 02:00 | disposition home or self-care (01) ==
LOC: ED 18:41
DX: L97.519 Non-pressure chronic ulcer of other part of right foot with unspecified severity (principal); L03.90 Cellulitis, unspecified; Z87.891 Personal history of nicotine dependence; E11.9 Type 2 diabetes mellitus without complications; E78.00 Pure hypercholesterolemia, unspecified; Z79.899 Other long term (current) drug therapy; Z85.040 Personal history of malignant carcinoid tumor of rectum
CPT/HCPCS: 36415; 80053; 83605; 85025; 85610; 85730; 86140; 87040; 87070; 87077; 87186; 87205; 87640; 87641; 96365; 99284; J0692

== ENCOUNTER 2019-03-01 11:24 | Inpatient (IN) | payer MEDICARE, BC ==
[2019-03-01] MEDS ORDERED: Dextrose 50% Syringe 50 ML* 25 GM/50 ML SYRINGE IV PUSH PRN (14:57)
[2019-03-01] MEDS ORDERED: Piperacillin/Tazobac ADVAN(*) 3.375 GM in NS 0.9% 100 ML* 100 ML IVPB ONE (14:57)
[2019-03-01] MEDS ORDERED: Zosyn per Pharmacy* NOTE FOLLOW UP SCH (15:00)
[2019-03-01] MEDS ORDERED: Cyclobenzaprine TAB* 10 MG PO PRN (15:02)
[2019-03-01] MEDS ORDERED: Loperamide CAP* 2 MG PO PRN (15:02)
[2019-03-01] MEDS ORDERED: traMADol TAB* 50 MG PO PRN (15:02)
[2019-03-01] MEDS ORDERED: NS 0.9% 1000 ML** 1,000 ML IV SCH (15:30)
[2019-03-01 15:40] LABS: ABS Eosinophils 0.1 10^3/ul (0-0.6); ABS Lymphocytes 0.3 10^3/ul (1.0-4.8); ABS Monocytes 0.5 10^3/ul (0-0.8); ABS Neutrophils 6.7 10^3/ul (1.5-7.7); Eosinophil % 0.7 %; Hematocrit 33 % (42-52); Hemoglobin 11.1 g/dL (14.0-18.0); Lymphocyte % 3.6 %; Mean Corpuscular HGB Conc 34 g/dL (31-36); Mean Corpuscular Hemoglobin 31 pg (27-31); Mean Corpuscular Volume 92 fL (80-94); Mean Platelet Volume 8.7 fL (7.4-10.4); Platelet Count 197 10^3/uL (150-450); Red Blood Count 3.61 10^6 /uL (4.18-5.48); Red Cell Distribution Width 18 % (10-15); White Blood Count 7.5 10^3/uL (3.5-10.8)
[2019-03-01 15:46] LABS: INR 1.16 (0.82-1.09)
[2019-03-01] MEDS: oxyCODONE TAB* 5 MG TAB PO PRN ×2 (15:54→22:29)
[2019-03-01 16:00] LABS: Albumin/Globulin Ratio 0.9 (1-3); Calcium 8.3 mg/dL (8.6-10.3); EGFR African American 159.5 (>60); EGFR Non-African American 131.8 (>60); Globulin 3.2 g/dL (2-4); Potassium 3.4 mmol/L (3.5-5.0); Total Bilirubin 0.5 mg/dL (0.2-1.0); Total Protein 6.2 g/dL (6.4-8.9)
[2019-03-01] MEDS ORDERED: Vancomycin(*) 1,000 MG in NS 0.9% 250 ML* 250 ML IVPB ONE (16:00)
[2019-03-01] MEDS ORDERED: Vancomycin per Pharmacy* NOTE FOLLOW UP SCH (16:00)
[2019-03-01] MEDS: Insulin LISPRO* 1 UNITS UNIT SUBCUT SCH (16:45)
--- NOTE | 2019-03-01 17:01 | HP ---
AMENDED REPORT NOW INCLUDES DESIGNATED COSIGNER CC: Dr. Tra Conway; Dr. Tu Martins; Dr. Ne Roberson * MEDICINE HISTORY AND PHYSICAL: DATE OF ADMISSION: 03/01/19 PROVIDER: Felipe Cota NP ATTENDING PHYSICIAN: Dr. Shira Richardson * (dictated by Felipe Cota NP). PRIMARY CARE PROVIDER: Dr. Tra Conway. OUTPATIENT ONCOLOGIST: Dr. Ne Roberson. WOUND CARE PHYSICIAN: Dr. Tu Martins. CHIEF COMPLAINT: Right great toe osteomyelitis. HISTORY OF PRESENT ILLNESS: Mr. Pizano is a 68-year-old male, who is being directly admitted from the wound care clinic with concern for right great toe cellulitis with likely osteomyelitis. Mr. Pizano provides the history with his daughter and healthcare proxy, Viola, who is also an MAT MACHINE OPERATOR, providing further detail. Mr. Pizano was originally admitted to [facility] from through 12/31/18 with concern for right foot cellulitis secondary to ulceration of the right great toe in the setting of diabetic neuropathy and chemotherapy treatment for rectal cancer, and [id number] diabetes. At that time, he was referred to the wound care clinic upon discharge. Per his daughter, the first visit was on 01/25/19. They have been following with Dr. Martins since that time. When the patient was seen last week by Dr. Martins, there was concern for the right great toe, primarily to the plantar aspect of the toe. The wound appeared to be worsening, and Dr. Martins put him on a course of doxycycline, which the patient finished his last dose this morning. Today, when his toe was evaluated, there was concern for evidence of bone that was seen through the toe wound. Last week, Dr. Martins had noted that the toenail had lifted off and there was evidence of necrotic tissue, and it appeared that perhaps the wound has tracked through to the other side. This is also a gentleman who has rectal cancer, who is undergoing neoadjuvant chemotherapy and radiation treatment with a planned surgery in March in [place]. There was also concern as Mr. Pizano, who has significant neuropathy to both feet with little sensation, states that he knocked his left toe at some point on Monday. The toe has become more swollen and red and reportedly has had some purulent serosanguineous drainage. He denies pain to either of the toes. His daughter, who changes the dressings, states that the toe, more particularly the right toe as that has been the one that they have been primarily treating, has had intermittent periods of increased drainage with odor. The drainage is usually serosanguineous, although at times it has been purulent. Mr. Pizano denies any other recent illnesses. He does state that occasionally he has had some chills , but otherwise denies chest pain, shortness of breath, nausea, vomiting. Again , he does have rectal cancer. He denies any worsening pain, dysuria, or other concerns at this time. PAST MEDICAL HISTORY: 1. Type 2 diabetes, [id number]. 2. Peripheral neuropathy. 3. Rectal cancer, currently receiving chemotherapy and radiation treatment. Last chemo was in December. 4. Pancytopenia. PAST SURGICAL HISTORY: Includes appendectomy and cataract removal. MEDICATIONS: Home medications confirmed with the patient and include: 1. Oxycodone 5 mg q.4 hours p.r.n. 2. Tramadol 50 mg t.i.d. p.r.n. 3. Loperamide 2 mg q.6 hours p.r.n. 4. Cyclobenzaprine 10 mg t.i.d. p.r.n. 5. Atorvastatin 20 mg q.p.m. ALLERGIES: No known allergies. FAMILY HISTORY: He reports an uncle and a paternal grandmother with cancer history. SOCIAL HISTORY: He denies smoking currently. States he is a former smoker, having quit in 2005. Prior to that, he had smoked 2 packs a day for approximately 32 years. He reports infrequent alcohol use, stating that he used to drink more often, but has not done so in quite some time. He denies any other illicit drug use. He lives at home. He reports fair exercise tolerance. He states that he can climb up a flight of stairs and get to the necessary areas of the house to perform ADLs. His daughter, Viola Graham, is his surrogate decision maker and healthcare proxy in the event of emergency. REVIEW OF SYSTEMS: General: Endorses occasional chills, but denies any known fevers, night sweats, excessive fatigue, or weight loss. HEENT: Denies visual changes, double vision, difficulties with hearing, sore throat, sinus drainage, or cold or flu symptoms. Pulmonary: Denies dyspnea on exertion, chest pain, cough, or hemoptysis. Cardiovascular: Denies chest pain, palpitations, leg swelling. Gastrointestinal: Denies nausea, vomiting, melena, or constipation. Denies any significant changes in bowel habits. He does endorse rectal pain. Genitourinary: Denies hematuria or dysuria. Musculoskeletal: Denies any joint pain, swelling, or redness. Denies any recent fractures. Integumentary: As per above with recent wounds to the right great toe as well as recent injury to the left great toe. Neuro: Has bilateral neuropathy to feet. Psych: Denies any significant depression, anxiety, or mood swings. PHYSICAL EXAMINATION GENERAL: This is a well-developed 68-year-old male, sitting up in a chair, in no acute distress. He is pleasant, interactive. HEENT: Head is atraumatic, normocephalic. Pupils are equal, round, and reactive to light and accommodation. Sclerae are anicteric. Oral mucosa is moist. NECK: Supple without lymphadenopathy or JVD noted. Full range of motion present. LUNGS: Clear to auscultation bilaterally. No wheezing, rales, or rhonchi noted. CARDIAC: Regular rate and rhythm. Normal S1, S2 heart sounds. No murmur appreciated. No peripheral edema noted. ABDOMEN: Soft, nontender. Bowel sounds are normoactive. No distention noted. NEURO: Sensation to bilateral feet decreased. No focal deficits. Speech is clear. He is alert and oriented x3. SKIN: There is a right great toe wound that is open measuring approximately 4.5 x 3 x 0.1 cm with serosanguineous drainage. There is a left great toe wound measuring 0.7 cm x 1 x 0.1 with serosanguineous drainage. Both toes have surrounding erythema with some edema to them. LABORATORY DATA: Labs are pending. ASSESSMENT AND PLAN: This is a 68-year-old male who is directly admitted today with concern for a right great toe wound with exposed bone with concern for osteomyelitis as well as a left great toe wound newly injured, in the presence of locally advanced rectal cancer, type 2 diabetes, peripheral neuropathy. He will be admitted as an inpatient to the medicine floor. Plan is as follows: 1. Right great toe cellulitis and osteomyelitis secondary to diabetic ulceration. At this point, there is concern for exposed bone and osteomyelitis. Ortho has been consulted. He will likely need an MRI, which has been ordered. Plan to obtain wound cultures, which I have already collected during my assessment, as well as initiate Zosyn and vanco pending updated culture. We will also obtain blood cultures x2, lactic acid, CBC, CMP, and hemoglobin A1c today upon admission. Requesting ID consult as well as continued wound care. 2. Type 2 diabetes. Again, we will check an A1c. He will be on a consistent carbohydrate diet. We will obtain fingerstick blood glucose and cover with lispro sliding scale insulin as needed. 3. Hyperlipidemia. Continue atorvastatin. 4. Rectal cancer. Previously received chemotherapy and radiation and awaiting surgery. Follow up with Oncology as an outpatient. Continue with pain management per home regimen. 5. DVT prophylaxis: Subcu heparin as I anticipate he will likely need surgery and amputation of the toe next week. 6. Code status: He is a full code. TIME SPENT: Approximately 60 minutes was spent on this admission with greater than half that time spent [id number] with the patient obtaining history and physical, performing physical examination, and reviewing the plan of care. Plan of care was also reviewed with my attending, Dr. Richardson, who is in agreement. FELIPE COTA, EDUCATIONAL AUDIOLOGIST [id number]/[facility] #: [id number] RIC
[2019-03-01] MEDS: Atorvastatin* 20 MG TAB PO SCH (18:34)
[2019-03-01] MEDS ORDERED: Potassium Chlor TAB* 20 MEQ TAB.ER PO ONE (18:51)
--- NOTE | 2019-03-01 18:55 | CONS ---
CONSULTATION REPORT: DATE OF CONSULT: 03/01/19 PROVIDER: Dr. Trevor Eddy. CHIEF COMPLAINT: Right great toe ulcer, left great toe swelling and redness. HISTORY OF PRESENT ILLNESS: The patient is a 68-year-old male who has been followed by Wound Care for an ulcer that has been present on his right great toe for a few months. The patient states that the ulcer has been getting worse and worse and that today Dr. Martins had seen him and when the nail was taken off , it exposed a little bit of bone. Dr. Martins then decided that it would be prudent to admit the patient to [facility] and have Orthopedics and Hospitalist Medicine evaluate the patient for further care. He also states that the left toe was stubbed about 1 month ago and has since become swollen and red and has had some drainage also. The patient denies any fevers, chills, night sweats. PAST MEDICAL HISTORY: 1. Diabetes mellitus. 2. Rectal cancer, currently active. PAST SURGICAL HISTORY: Appendectomy. HOME MEDICATIONS: 1. Atorvastatin 20 mg. 2. Loperamide 2 mg capsules. 3. Oxycodone tablets 5 mg. 4. Cyclobenzaprine tablets 10 mg. 5. Tramadol 50 mg. ALLERGIES: No known drug allergies. FAMILY HISTORY: Noncontributory. SOCIAL HISTORY: The patient denies any drug use, alcohol use, or smoking. REVIEW OF SYSTEMS: General: The patient denies any fevers, chills, or night sweats. No known anesthesia problems. HEENT: The patient denies any headaches or lightheadedness. Cardiothoracic: The patient denies any chest pain or palpitations. Pulmonary: The patient denies any shortness of breath or chronic cough. The patient denies any nausea, vomiting, diarrhea, or constipation. : The patient denies any nocturia or urinary frequency. MSK: The patient denies any chronic or intermittent back pain or fractures. Neuro: The patient denies any paresthesias, numbness, or seizures. Integument: The patient admits to open sore on his great toe. PHYSICAL EXAM: General: The patient is alert and oriented x3, appropriate mood and affect, appropriate dress and hygiene. HEENT: Normocephalic, atraumatic. Hearing and vision are grossly intact. Cardio: Regular rate and rhythm with normal S1 and S2. No appreciable S3 or S4. No murmurs, rubs, or gallops. Pulmonary: Lungs are clear to auscultation bilaterally with no wheezes , rales, or rhonchi. MSK: Inspection of the right great toe reveals an ulcer on the plantar portion of the right great toe that encompasses the entirety of the distal portion of his great toe. The ulcer on this side is staged at a grade 2. There is no active drainage from the ulcer at this point. No areas of necrosis of the ulcer. There is erythema present around the edges of the ulcer. On the dorsal portion of the toe, he has no nail present. There is a small amount of bone present where the nail bed would be. There is significant erythema, but no drainage. On the left great toe, he has a small cut next to the nail laterally that has no active drainage. There is some erythema of the toe and some pallor on the dorsal portion of the great toe with surrounding erythema. He does not have sensation in either toe, but he does have 2+ dorsalis pedis pulse bilaterally. IMPRESSION: 1. Right great toe ulcer. 2. Left great toe inflammation, redness, and pallor. PLAN: We will obtain an MRI of all the toes and feet to assess for any osteomyelitis that may or may not be present. We will review the MRIs and Dr. Eddy will see the patient tomorrow and formulate a plan of action once the MRIs have been completed. CAROL MIKE [id number]/[facility] #: [id number] RIC
[2019-03-01] MEDS: ZOSYN 3.375 GM Q8H per EXTENDED INFUSION IVPB SCH ×2 (20:00)
[2019-03-01] MEDS: Heparin VIAL(*) 5000 UNITS/ML VIAL (FIVE THOUSAND) SUBCUT SCH (22:30)
[2019-03-02] MEDS: Vancomycin(*) 1,000 MG in NS 0.9% 250 ML* 250 ML IV SCH ×3 (02:30→17:38)
[2019-03-02] MEDS: ZOSYN 3.375 GM Q8H per EXTENDED INFUSION IVPB SCH ×6 (04:40→19:23)
[2019-03-02] MEDS: Heparin VIAL(*) 5000 UNITS/ML VIAL (FIVE THOUSAND) SUBCUT SCH ×3 (04:47→20:15)
[2019-03-02] MEDS: oxyCODONE TAB* 5 MG TAB PO PRN ×4 (04:47→22:49)
[2019-03-02] MEDS: Insulin LISPRO* 1 UNITS UNIT SUBCUT SCH ×3 (08:00→17:16)
[2019-03-02 10:26] LABS: ABS Eosinophils 0.1 10^3/ul (0-0.6); ABS Lymphocytes 0.2 10^3/ul (1.0-4.8); ABS Monocytes 0.2 10^3/ul (0-0.8); Eosinophil % 1.8 %; Hematocrit 33 % (42-52); Hemoglobin 10.8 g/dL (14.0-18.0); Lymphocyte % 4.6 %; Mean Corpuscular HGB Conc 33 g/dL (31-36); Mean Corpuscular Hemoglobin 31 pg (27-31); Mean Corpuscular Volume 93 fL (80-94); Mean Platelet Volume 8.5 fL (7.4-10.4); Platelet Count 167 10^3/uL (150-450); Red Cell Distribution Width 17 % (10-15); White Blood Count 4.6 10^3/uL (3.5-10.8)
[2019-03-02 10:43] LABS: BUN/Creatinine Ratio 15.5 (8-20); Calcium 7.6 mg/dL (8.6-10.3); EGFR African American 133.9 (>60); EGFR Non-African American 110.7 (>60); Potassium 3.6 mmol/L (3.5-5.0)
--- NOTE | 2019-03-02 11:11 | PN ---
Subjective - Subjective Reason for Note: Progress Note History: Edilma Pizano is a 68 year old right handed white male. He has a history of stage 3 rectal cancer, type 2 diabetes mellitus and severe peripheral neuropathy.\ I have obtained his presentation from the patient, his daughter Viola and the history and physical provided by Isabell Langley NP. He has had a right great toe infection that started with cellulitis and an ulcer on the plantar surface. There is now osteomyelitis. He injured his left great toe and foot 1 month ago and has osteomyelitis of the distal phalanx of this left phalanx and some metatarsal fractures. 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 skinny Puberty at average age Involved in sports at high school - wrestling, hockey, cross coutnry at 19 years 165 lbs Max weight 2.5 years ago 210 lbs 2017 diagnosed T2D He has had neuropathy for 10 years prior to fdc - precedes the diagnosis of diabetes His A1c 8.3% at diagnosis Highest since 5.7% - controlled initially with metformin - now diet/exercise only FH - only family member with T2D No CAD Daughter thyroid idsease - no other [id number] or autoimmune disease Abdominal cancers paternal grandmother and uncle Risk factors: Tobacco - 2005 - 2 ppd Alcohol beer - up to 6 - 8 beers per day until diagnosis of rectal cancer No steroid history He is treated for hypercholesterolemia No hypertension He was not sedentary Complications of T2D Microvascular disease: no nephropathy or retinopathy He has peripheral neuropathy - but this precedes his T2D by many years and he has had tight glycemic control Macrovascular disease- no known CAD, CVD or PVD Health maintenance: No colonoscopy Has had pneumonia/flu vaccination TDAP out of date. Active Problems: Active Problems Left hallux osteomyelitis (Acute) M86.9 Peripheral neuropathy (Acute) G62.9 Right hallux osteomyelitis (Acute) M86.9 Carcinoma of rectum, stage 3 (Chronic) C20 Emphysema lung (Chronic) J43.9 Fecal incontinence (Chronic) R15.9 Former smoker (Chronic) Z87.891 History of alcohol abuse (Chronic) F10.11 Hypercholesterolemia (Chronic) E78.00 Loose stools (Chronic) R19.5 Type 2 diabetes mellitus, controlled (Chronic) E11.9 Current Medications: Current Medications Acetaminophen (Tylenol Tab*) 650 mg PO Q4H PRN PRN Reason: MILD PAIN or TEMP > 100.4 Atorvastatin Calcium (Lipitor*) 20 mg PO QPM [facility] Last Admin: 03/01/19 18:34 Dose: 20 mg Cyclobenzaprine HCl (Flexeril Tab*) 10 mg PO TID PRN PRN Reason: muscle spasms Dextrose (D50w Syringe 50 Ml*) 12.5 gm IV PUSH .FOR FS < 60 - SS PRN PRN Reason: FS < 60 Heparin Sodium (Porcine) (Heparin Vial(*)) 5,000 units SUBCUT Q8HR [facility] Last Admin: 03/02/19 04:47 Dose: 5,000 units Heparin Sodium (Porcine) (Heparin Flush Port (Ivad)) 5 ml FLUSH DAILY [facility]; Protocol Last Admin: 03/02/19 09:35 Dose: Not Given Sodium Chloride (Ns 0.9% 1000 Ml) 1,000 mls @ 50 mls/hr IV .PER RATE [facility] Last Admin: 03/01/19 16:01 Dose: 50 mls/hr Piperacillin Sod/Tazobactam (Sod 3.375 gm/ Sodium Chloride) 100 mls @ 25 mls/ hr IVPB Q8H [facility] Last Admin: 03/02/19 04:40 Dose: 25 mls/hr Vancomycin HCl 1,000 mg/ (Sodium Chloride) 250 mls @ 166.667 mls/hr IV Q8H [facility] Last Admin: 03/02/19 09:35 Dose: 166.667 mls/hr Insulin Human Lispro (Humalog*) 0 units SUBCUT AC [facility]; Protocol Last Admin: 03/02/19 08:00 Dose: Not Given Loperamide HCl (Imodium Cap*) 2 mg PO Q6HR PRN PRN Reason: DIARRHEA Ondansetron HCl (Zofran Inj*) 4 mg IV Q6H PRN PRN Reason: NAUSEA/VOMITING Oxycodone HCl (Roxycodone Tab*) 5 mg PO Q4H PRN PRN Reason: PAIN - MODERATE Last Admin: 03/02/19 04:47 Dose: 5 mg Pharmacy Consult (Zosyn Per Pharmacy*) 1 note FOLLOW UP .ZOSYN PER PHARMACY [facility] Pharmacy Consult (Vancomycin Per Pharmacy*) 1 note FOLLOW UP .VANC PER PHARMACY [facility]; Protocol Pharmacy Profile Note (Vancomycin Trough Check) 1 note FOLLOW UP 1630 ONE Stop: 03/02/19 16:31 Tramadol HCl (Ultram*) 50 mg PO TID PRN PRN Reason: PAIN - MILD - Review of Systems Pulmonary: Negative: Cough, Sputum, Respiratory Distress Cardiology: Negative: Chest Pain, Palpitations, Swelling of Ankles Gastroenterology: Positive: Diarrhea, Other - incontinence Negative: Abdominal Pain, Nausea, Vomiting Genital - Urinary: Negative: Polyuria Endocrinology: Positive: Diabetes Mellitus, Diabetic Foot Ulcers Negative: Thyroid Problems, Adrenal Problems, Gonadal Problems, Pituitary disease Past Medical History: Child - appendectomy/ tonsillectomy 2015 bilateral cataract extractions Power port No other hospitalizations Hypercholesterolemia rectal carcinoma peripheral neuropathy Home Medications: Home Medications Medication Instructions Recorded Confirmed Type Atorvastatin* [Lipitor 20 MG*] 20 mg PO QPM 11/13/18 03/01/19 History Loperamide HCl [Imodium A-D] 2 mg PO Q6HR PRN 12/27/18 03/01/19 History oxyCODONE TAB* [Roxycodone TAB 5 5 mg PO Q4H PRN #60 tab MDD 20 mg 12/31/18 Rx mg*] Cyclobenzaprine TAB* [Flexeril 10 10 mg PO TID PRN 01/22/19 03/01/19 History MG TAB*] Tramadol HCl 50 mg PO TID PRN 01/22/19 03/01/19 History Allergies: Allergies Allergy/AdvReac Type Severity Reaction Status Date / Time No Known Allergies Allergy Verified 01/22/19 18:47 - Social History Social History: 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 - Vital Signs Vital Signs: Vital Signs 03/01/19 03/01/19 03/01/19 15:15 15:54 16:12 Temperature 98.8 F Pulse Rate 70 72 Respiratory 18 18 Rate Blood Pressure 129/65 (mmHg) O2 Sat by Pulse 99 Oximetry 03/01/19 03/01/19 03/01/19 17:34 17:42 19:36 Temperature 98.0 F Pulse Rate 70 Respiratory 16 16 18 Rate Blood Pressure 93/48 (mmHg) O2 Sat by Pulse 100 Oximetry 03/01/19 03/01/19 03/01/19 19:45 20:00 22:29 Temperature Pulse Rate Respiratory 18 16 Rate Blood Pressure 105/55 (mmHg) O2 Sat by Pulse Oximetry 03/01/19 03/02/19 03/02/19 23:28 00:00 03:41 Temperature 98.3 F 98.0 F Pulse Rate 66 64 Respiratory 18 16 16 Rate Blood Pressure 104/51 98/45 (mmHg) O2 Sat by Pulse 99 95 Oximetry 03/02/19 03/02/19 03/02/19 04:00 04:47 07:20 Temperature Pulse Rate Respiratory 18 18 Rate Blood Pressure 100/45 (mmHg) O2 Sat by Pulse Oximetry - Intake and Output Intake and Output: Intake & Output 02/27/19 02/28/19 03/01/19 03/02/19 11:59 11:59 11:59 11:59 Intake Total 1634 Output Total 450 Balance 1184 Weight 152 lb 4.8 oz Intake: IV Fluids 489 Normal saline 489 IVPB 425 ABX - PIPERACILLIN 125 Vancomycin 300 Oral 720 Output: Urine 450 Other: # Bowel Movements 0 # Voids 0 ADLs: Meal Record Start: 03/01/19 14: 49 Freq: DAILY@0900,1400,1800 Status: Active Protocol: Created 03/01/19 14:49 System (Rec: 03/01/19 14:49 System MED-M21) Document 03/01/19 18:00 [id number] (Rec: 03/01/19 19:44 [id number] MED-C05) Document 03/02/19 09:00 [id number] (Rec: 03/02/19 10:17 [id number] MED-C11) Intake and Output Start: 03/01/19 14: 49 Freq: DAILY@0600,1400,2200 Status: Active Protocol: Created 03/01/19 14:49 System (Rec: 03/01/19 14:49 System MED-M21) Document 03/01/19 22:00 [id number] (Rec: 03/01/19 22:28 [id number] MED-C05) Document 03/02/19 04:15 [id number] (Rec: 03/02/19 04:15 [id number] MED-C02) - Physical Exam General Physical Exam Comment: Warm and well perfused. He is in no acute distress. Left great toe - edematous, swollen with ripped great toe nail. Pin prick sensation - absent distal to just below the left knee. General: No Cyanosis, No Anemia, No Jaundice Eye Exam: bilateral: EOMI, Vision Field - normal Skin: Abnormal: Cellulitis - both great toes, distal feet Endocrine: No Central Obesity, No Acromegaly, No Vitiligo, No Flushing, No Acanthosis nigricans, No Violaceious striae, No Jeannine Syndrome, No Buccal pigmenatation, No Ram Crease Pigmentation Lungs and Chest: Yes: Chest Expansion Symetrica. No: Chest Expansion Full - Over-expanded, Percussion Note Resonant - Hyperresonant, Vessicular Breath Sounds - emphysematous, Crackles, Wheezes, Respiratory Distress Heart Rate and Rhythm: Regular Additional Cardiovascular: Yes: Normal Heart Sounds. No: Heart Murmur, Carotid Bruits, Pedal Edema Abdominal Exam: Yes: Soft, Hepatomegaly, Bowel Sounds Present. No: Distention, Abdominal Mass, Splenomegaly, Abdominal Tenderness, Guarding, Rebound Tenderness - Extremities Posterior Tibial Pulse: Bilateral Normal Dorsalis Pedis Pulses: Bilateral Normal Feet Appearace: Ulcers - His right foot was dressed, left foot has erythema of great toe Cranial Nerves II-XII Intact: Yes Limbs: Normal Power, Normal Tone - Neuro Orientation: A/O x3 Psychiatric: Normal Speech: Normal Results - Results Lab Results: Laboratory Results - last 24 hr 03/01/19 03/01/19 03/01/19 15:20 15:20 15:20 WBC 7.5 RBC 3.61 L Hgb 11.1 L Hct 33 L MCV 92 MCH 31 MCHC 34 RDW 18 H Plt Count 197 MPV 8.7 Neut % (Auto) 89.0 Lymph % (Auto) 3.6 [place] % (Auto) 6.2 Eos % (Auto) 0.7 Baso % (Auto) 0.5 Absolute Neuts (auto) 6.7 Absolute Lymphs (auto) 0.3 L Absolute Monos (auto) 0.5 Absolute Eos (auto) 0.1 Absolute Basos (auto) 0.0 Absolute Nucleated RBC 0.0 Nucleated RBC % 0.0 INR (Anticoag Therapy) Sodium 138 Potassium 3.4 L Chloride 101 Carbon Dioxide 30 Anion Gap 7 BUN 14 Creatinine 0.61 L Est GFR ( Amer) 159.5 Est GFR (Non-Af Amer) 131.8 BUN/Creatinine Ratio 23.0 H Glucose 156 H POC Glucose (mg/dL) Hemoglobin A1c 6.0 H Lactic Acid Calcium 8.3 L Total Bilirubin 0.50 AST 19 ALT 26 Alkaline Phosphatase 104 Total Protein 6.2 L Albumin 3.0 L Globulin 3.2 Albumin/Globulin Ratio 0.9 L 03/01/19 03/01/19 03/01/19 15:20 15:20 22:28 WBC RBC Hgb Hct MCV MCH MCHC RDW Plt Count MPV Neut % (Auto) Lymph % (Auto) [place] % (Auto) Eos % (Auto) Baso % (Auto) Absolute Neuts (auto) Absolute Lymphs (auto) Absolute Monos (auto) Absolute Eos (auto) Absolute Basos (auto) Absolute Nucleated RBC Nucleated RBC % INR (Anticoag Therapy) 1.16 H Sodium Potassium Chloride Carbon Dioxide Anion Gap BUN Creatinine Est GFR ( Amer) Est GFR (Non-Af Amer) BUN/Creatinine Ratio Glucose POC Glucose (mg/dL) 108 H Hemoglobin A1c Lactic Acid 0.9 Calcium Total Bilirubin AST ALT Alkaline Phosphatase Total Protein Albumin Globulin Albumin/Globulin Ratio 03/02/19 03/02/19 03/02/19 07:30 10:00 10:00 WBC 4.6 RBC 3.50 L Hgb 10.8 L Hct 33 L MCV 93 MCH 31 MCHC 33 RDW 17 H Plt Count 167 MPV 8.5 Neut % (Auto) 87.6 Lymph % (Auto) 4.6 [place] % (Auto) 5.3 Eos % (Auto) 1.8 Baso % (Auto) 0.7 Absolute Neuts (auto) 4.0 Absolute Lymphs (auto) 0.2 L Absolute Monos (auto) 0.2 Absolute Eos (auto) 0.1 Absolute Basos (auto) 0.0 Absolute Nucleated RBC 0.0 Nucleated RBC % 0.0 INR (Anticoag Therapy) Sodium 140 Potassium 3.6 Chloride 106 Carbon Dioxide 30 Anion Gap 4 BUN 11 Creatinine 0.71 Est GFR ( Amer) 133.9 Est GFR (Non-Af Amer) 110.7 BUN/Creatinine Ratio 15.5 Glucose 162 H POC Glucose (mg/dL) 122 H Hemoglobin A1c Lactic Acid Calcium 7.6 L Total Bilirubin AST ALT Alkaline Phosphatase Total Protein Albumin Globulin Albumin/Globulin Ratio Radiology Results: Patient Name: EDILMA PIZANO Medical Record#: [id number] Ordering Physician: Chance MEDINA Acct.#: [id number] : 1950 Age: 68 Sex: M Location: [address] [place] [address] Exam Date: 03/01/191527 ADM Status: ADM IN Order Information: MRI LOWER EXTREMITY RIGHT W/O Accession Number: [id number] CPT: 06455 PROCEDURE INFORMATION: Exam: MR Right Lower Extremity Without Contrast; Forefoot Exam date and time: 03/01/2019 8:35 PM Age: 68 years old Clinical indication: Condition or disease; Other: Non-healing wound; Patient HX: PT has chronic wound on the right great toe that has been worsening over the last few months; Additional info: Osteomyelitis, foot and great toe TECHNIQUE: Imaging protocol: MR of the Right foot without intravenous contrast. Exam focused on the forefoot. COMPARISON: [facility] WO MRI LOWER EXTREMITY RIGHT W/O 12/27/2018 8:02 PM FINDINGS: LIGAMENTS: Medial collateral ligaments of the digits: Normal. No evidence of tear. Lateral collateral ligaments of the digits: Normal. No evidence of tear. TENDONS: Flexor tendons: The as visualized. Extensor tendons: Normal as visualized. Bones/joints: Diffuse T1 infiltration throughout the distal first phalanx with associated marrow edema. Edema additionally involves the first proximal phalanx which shows no T1 infiltration. The remaining marrow signal is normal. Cartilage loss of all metatarsal phalangeal and interphalangeal joints with osteophytes along the first MTP joint. Additional cartilage loss and osteophytes along the talonavicular joint. Remaining cartilage is preserved. Cartilage: See Bones/joints Finding. Soft tissues: Extensive subcutaneous edema around the first digit which partially extends proximally into the remaining foot. No subcutaneous fluid collections. Muscles: Unremarkable. Fluid: Unremarkable. No joint effusion. IMPRESSION: 1. Osteomyelitis first distal phalanx with possible early involvement of the first proximal phalanx. Associated cellulitis. 2. Mild right foot primary osteoarthritis. Patient Name: EDILMA PIZANO Medical Record#: [id number] Ordering Physician: Chance MEDINA Acct.#: [id number] : 1950 Age: 68 Sex: M Location: [address] [place] [address] Exam Date: 03/01/198 ADM Status: ADM IN Order Information: MRI LOWER EXTREMITY LEFT W/O Accession Number: [id number] CPT: 81305 PROCEDURE INFORMATION: Exam: MR Left Lower Extremity Without Contrast; Forefoot Exam date and time: 03/01/2019 8:13 PM Age: 68 years old Clinical indication: Edema and swelling, leg or foot; Yes, it is localized; Patient HX: PT has swelling and redness to the left great toe; Additional info: Osteomyelitis, foot and great toe TECHNIQUE: Imaging protocol: MR of the Left foot without intravenous contrast. Exam focused on the forefoot. COMPARISON: [facility] R PART FOOT RIGHT 2 VWS 01/23/2019 12:46:53 AM FINDINGS: LIGAMENTS: Medial collateral ligaments of the digits: Normal. No evidence of tear. Lateral collateral ligaments of the digits: Normal. No evidence of tear. TENDONS: Flexor tendons: Normal as visualized. Extensor tendons: Normal as visualized. Bones/joints: Interval cortical defects involving the distal metadiaphyses of the second through fourth metatarsals which is not seen previously. Associated adjacent marrow edema. There has been interval erosion of a most of the first distal phalanx which was normal on the prior study. Associated edema and T1 infiltration of the remaining bone. Remaining marrow signal is normal. No additional osseous erosion. Cartilage: Cartilage loss of all MTP joints, most advanced at the first MTP joint. Associated first MTP periarticular osteophytes. Additional cartilage loss with osteophytes along the talar navicular joint. Remaining cartilage is normal in thickness. Soft tissues: Subcutaneous edema throughout the visualized foot particularly within the distal first digit. The distal first digit deviated laterally. Edema involves the deeper compartment of the visualized foot great small lobulated T2 hyperintense collection between the first and second metatarsal heads measuring 1.2 x 0.8 cm (series 6, image 17). Muscles: Normal. Fluid: Normal. No joint effusion. IMPRESSION: 1. Osteomyelitis distal first phalanx with associated left foot cellulitis. 2. Interval fractures of the second through fourth metatarsals. 3. Small ganglion cyst between the first and second metatarsals. 4. Mild left foot primary osteoarthritis. Dictated and Authenticated by: Natalia James MD EKG Report: Sinus rhythm: 67 ND 181 QTC 467 QRS axis -68 Left anterior hemiblock. Poor R wave progression Assessment - Problem List Assessment: Patient Problems Left hallux osteomyelitis (Acute) Peripheral neuropathy (Acute) Right hallux osteomyelitis (Acute) Carcinoma of rectum, stage 3 (Chronic) Emphysema lung (Chronic) Fecal incontinence (Chronic) Former smoker (Chronic) History of alcohol abuse (Chronic) Hypercholesterolemia (Chronic) Loose stools (Chronic) Type 2 diabetes mellitus, controlled (Chronic) Plan: Left hallux osteomyelitis (Acute) Right hallux osteomyelitis (Acute) I have discussed both of these osteomyelitic great toes with Dr. Trevor Eddy. He is going to surgically amputate the affected portions bilaterally. Antibacterial therapy will depend upon viability afterwards. I note he has not had ABIs to check his peripheral arteries. Comorbidities: Peripheral neuropathy (Acute) This is the cause of his ulcers - he has anesthetic feet and lower legs. This preceded his T2D by 10 years or more and has not had a formal work-up. 03/09/2017 his B12 level was 650. He was a heavy beer drinker so this neuropathy could be alcohol related. I have discussed the possibility of special stains for any nerves removed when he has his amputations - particularly for amyloid. I will check his SPEP, TSH, ESR, B1, hepatitis B and C serology and MAG Carcinoma of rectum, stage 3 (Chronic) He is due for surgery in March and hence we need to clear up the infection well before. He has good pain control. His CEA recently was 3.9. Loose stools (Chronic) Fecal incontinence (Chronic) This is ongoing despite opioids Type 2 diabetes mellitus, controlled (Chronic) This is well controlled - he has no family history. I will check his fasting insulin, glucose, c-peptide. I will later check his iron panel/ferritin. Secondary diagnoses: Former smoker (Chronic) Emphysema lung (Chronic) He has over expanded chest, hyper-resonant to percussion and emphysematous breath sounds. 02/25/2017 - he has a low dose screening CT scan as a former smoker. He had evidence of COPD, bronchiectasis. He denies symptoms History of alcohol abuse (Chronic) Hypercholesterolemia (Chronic) I discussed the above with Edilma Pizano and his daughter Viola and they agree with the management plan.
[2019-03-02 12:30] LABS: C Reactive Protein 15.99 mg/L (<8.01)
[2019-03-02 13:29] LABS: Erythrocyte Sed Rate 52 mm/Hr (0-19)
--- NOTE | 2019-03-02 13:35 | CONS ---
CONSULTATION REPORT: DATE OF CONSULTATION: 03/02/19 HISTORY OF PRESENT ILLNESS: Mr. Pizano is a 68-year-old gentleman with diabetes and peripheral neuro florence. He has developed chronic right great toe drainage and osteomyelitis despite 3 months with the wound clinic. Now, he has had some blunt trauma to his left great toe, the nail sloughing with eryt milena and swelling of the left great toe. He is admitted from the wound clinic for medical care, anti biotics and evaluation for possible toe removal. PHYSICAL EXAMINATION: Mr. Pizano is fairly densely neuropathic and is in no acute distress from this problem. He is thin, but alert and otherwise well developed. His extremity exam shows him to have w arm feet bilaterally with thready dorsal pulses. He has fairly dense neuropathy below mid calf. The right forefoot has a bulbous erythematous great toe with some chronic maceration and ulceration. Th ere is a slight foul odor. There is redness right up to the mid portion of the proximal phalanx. Th e toenail grossly deformed. Second toe is actually slightly erythematous and recently had the nail r emoved. This toe is long and should be shortened partially at the same time as the great toe because it will be sharing all the load and would breakdown quickly. The left forefoot shows similar warm f oot with dorsal thready pulse, but there is a very deformed thickened nail, which is loose, barely at tached. The entire nail bed itself is macerated, erythematous and red with a thickened bulbous toe a s well, but not as much proximal erythema. IMPRESSION AND PLAN: The patient is a candidate for right first MTP joint disarticulation and second toe PIP disarticulation. Left forefoot, most likely first MTP joint disarticulation and possible pr oximal phalangeal transection. This will be performed while he is in the hospital. [id number]/[facility] #: [id number]
[2019-03-02] MEDS ORDERED: Vancomycin Trough Check NOTE FOLLOW UP ONE (16:30)
[2019-03-02] MEDS: Acetaminophen TAB* 325 MG PO PRN (17:18)
[2019-03-02] MEDS: Atorvastatin* 20 MG TAB PO SCH (17:19)
[2019-03-02] MEDS: Ondansetron INJ* 2 MG/ML VIAL IV PRN (17:21)
[2019-03-02 17:42] LABS: Hepatitis B Surface Antigen Nonreactive (Nonreactive)
[2019-03-03] MEDS: Vancomycin(*) 1,000 MG in NS 0.9% 250 ML* 250 ML IV SCH ×2 (00:56→09:03)
[2019-03-03] MEDS: ZOSYN 3.375 GM Q8H per EXTENDED INFUSION IVPB SCH ×6 (03:50→20:15)
[2019-03-03 05:35] LABS: ABS Eosinophils 0.1 10^3/ul (0-0.6); ABS Lymphocytes 0.3 10^3/ul (1.0-4.8); ABS Monocytes 0.3 10^3/ul (0-0.8); ABS Neutrophils 3.1 10^3/ul (1.5-7.7); Eosinophil % 2.4 %; Hematocrit 32 % (42-52); Hemoglobin 10.7 g/dL (14.0-18.0); Lymphocyte % 7.7 %; Mean Corpuscular HGB Conc 33 g/dL (31-36); Mean Corpuscular Hemoglobin 31 pg (27-31); Mean Corpuscular Volume 93 fL (80-94); Mean Platelet Volume 8.4 fL (7.4-10.4); Nucleated Red Blood Cells % 0.1; Platelet Count 150 10^3/uL (150-450); Red Blood Count 3.48 10^6 /uL (4.18-5.48); Red Cell Distribution Width 18 % (10-15); White Blood Count 3.9 10^3/uL (3.5-10.8)
[2019-03-03 05:52] LABS: BUN/Creatinine Ratio 11.1 (8-20); Calcium 7.9 mg/dL (8.6-10.3); EGFR African American 131.8 (>60); EGFR Non-African American 108.9 (>60); Potassium 4.2 mmol/L (3.5-5.0)
[2019-03-03] MEDS: Heparin VIAL(*) 5000 UNITS/ML VIAL (FIVE THOUSAND) SUBCUT SCH ×2 (06:08→14:34)
[2019-03-03 06:43] LABS: Insulin 4.8 mcIU/mL (2.0-16.0)
[2019-03-03] MEDS: Insulin LISPRO* 1 UNITS UNIT SUBCUT SCH ×3 (07:17→17:24)
[2019-03-03] MEDS: Ondansetron INJ* 2 MG/ML VIAL IV PRN ×3 (09:03→20:15)
--- NOTE | 2019-03-03 10:08 | PN ---
PROGRESS NOTE: DATE OF VISIT: 03/03/19 LOCATIONS: Seen on room 411. HISTORY: Leonardo is comfortable. He is on some broad spectrum antibiotic and is getting ready medically for his bilateral foot surgery tomorrow in the operating room. He is neuropathic, so he does not have any pain. He is afebrile. His white count is stable now at 3.9, hematocrit 32. He is also afebrile at 97.4, blood pressure is stable. He will be n.p.o. after midnight and we reviewed the plan for surgery for tomorrow. [id number]/[facility] #: [id number] RIC
[2019-03-03] MEDS: Acetaminophen TAB* 325 MG PO PRN (11:45)
[2019-03-03] MEDS: oxyCODONE TAB* 5 MG TAB PO PRN ×3 (11:46→23:00)
[2019-03-03] MEDS ORDERED: Tetan/Diph/Pertus SYR(Tdap)* 0.5 ML SYR(BOOSTRIX) use SYR contains LATEX IM ONE (12:18)
[2019-03-03] MEDS ORDERED: Heparin VIAL(*) 5000 UNITS/ML VIAL (FIVE THOUSAND) SUBCUT SCH (14:19)
[2019-03-03] MEDS: Atorvastatin* 20 MG TAB PO SCH ×2 (20:15→20:20)
[2019-03-04] MEDS: ZOSYN 3.375 GM Q8H per EXTENDED INFUSION IVPB SCH ×6 (03:42→20:19)
--- NOTE | 2019-03-04 07:57 | PN ---
Subjective - Subjective Reason for Note: Progress Note History: He has been nauseated and has not eaten since yesterday b'fast. Otherwise, he has no pain, fever or chills. He has not been coughing, has no worsening diarrhea, has no headache. Active Problems: Active Problems Left hallux osteomyelitis (Acute) M86.9 Nausea (Acute) R11.0 Peripheral neuropathy (Acute) G62.9 Right hallux osteomyelitis (Acute) M86.9 Carcinoma of rectum, stage 3 (Chronic) C20 Emphysema lung (Chronic) J43.9 Fecal incontinence (Chronic) R15.9 Former smoker (Chronic) Z87.891 History of alcohol abuse (Chronic) F10.11 Hypercholesterolemia (Chronic) E78.00 Loose stools (Chronic) R19.5 Type 2 diabetes mellitus, controlled (Chronic) E11.9 Current Medications: Current Medications Acetaminophen (Tylenol Tab*) 650 mg PO Q4H PRN PRN Reason: MILD PAIN or TEMP > 100.4 Last Admin: 03/03/19 11:45 Dose: 650 mg Atorvastatin Calcium (Lipitor*) 20 mg PO QPM [facility] Last Admin: 03/03/19 20:20 Dose: Not Given Cyclobenzaprine HCl (Flexeril Tab*) 10 mg PO TID PRN PRN Reason: muscle spasms Dextrose (D50w Syringe 50 Ml*) 12.5 gm IV PUSH .FOR FS < 60 - SS PRN PRN Reason: FS < 60 Heparin Sodium (Porcine) (Heparin Flush Port (Ivad)) 5 ml FLUSH DAILY [facility]; Protocol Last Admin: 03/03/19 08:47 Dose: Not Given Piperacillin Sod/Tazobactam (Sod 3.375 gm/ Sodium Chloride) 100 mls @ 25 mls/ hr IVPB Q8H [facility] Last Admin: 03/04/19 03:42 Dose: 25 mls/hr Insulin Human Lispro (Humalog*) 0 units SUBCUT AC [facility]; Protocol Last Admin: 03/03/19 17:24 Dose: Not Given Loperamide HCl (Imodium Cap*) 2 mg PO Q6HR PRN PRN Reason: DIARRHEA Ondansetron HCl (Zofran Inj*) 4 mg IV Q4H PRN PRN Reason: NAUSEA/VOMITING Last Admin: 03/03/19 20:15 Dose: 4 mg Oxycodone HCl (Roxycodone Tab*) 5 mg PO Q4H PRN PRN Reason: PAIN - MODERATE Last Admin: 03/03/19 23:00 Dose: 5 mg Pharmacy Consult (Zosyn Per Pharmacy*) 1 note FOLLOW UP .ZOSYN PER PHARMACY YELITZA Tetanus/Reduced Diphtheria/Acell Pertussis (Boostrix Syr*) 0.5 ml IM .ONCE ONE Stop: 03/04/19 09:01 Tramadol HCl (Ultram*) 50 mg PO TID PRN PRN Reason: PAIN - MILD Home Medications: Home Medications Medication Instructions Recorded Confirmed Type Atorvastatin* [Lipitor 20 MG*] 20 mg PO QPM 11/13/18 03/01/19 History Loperamide HCl [Imodium A-D] 2 mg PO Q6HR PRN 12/27/18 03/01/19 History oxyCODONE TAB* [Roxycodone TAB 5 5 mg PO Q4H PRN #60 tab MDD 20 mg 12/31/18 Rx mg*] Cyclobenzaprine TAB* [Flexeril 10 10 mg PO TID PRN 01/22/19 03/01/19 History MG TAB*] Tramadol HCl 50 mg PO TID PRN 01/22/19 03/01/19 History Allergies: Allergies Allergy/AdvReac Type Severity Reaction Status Date / Time No Known Allergies Allergy Verified 01/22/19 18:47 Objective - Vital Signs Vital Signs: Vital Signs 03/03/19 03/03/19 03/03/19 08:00 11:15 11:46 Temperature 97 F Pulse Rate 72 Respiratory 16 18 18 Rate Blood Pressure 107/56 (mmHg) O2 Sat by Pulse 100 Oximetry 03/03/19 03/03/19 03/03/19 14:46 15:15 17:53 Temperature 97.7 F Pulse Rate 69 Respiratory 18 16 18 Rate Blood Pressure 102/52 (mmHg) O2 Sat by Pulse 100 Oximetry 03/03/19 03/03/19 03/03/19 19:42 20:00 20:44 Temperature 98.1 F Pulse Rate 61 Respiratory 16 16 16 Rate Blood Pressure 111/55 (mmHg) O2 Sat by Pulse 100 Oximetry 03/03/19 03/03/19 03/04/19 22:57 23:00 00:59 Temperature 97.8 F Pulse Rate 68 Respiratory 16 16 16 Rate Blood Pressure 93/42 (mmHg) O2 Sat by Pulse 99 Oximetry 03/04/19 03:22 Temperature 99 F Pulse Rate 73 Respiratory 20 Rate Blood Pressure 106/55 (mmHg) O2 Sat by Pulse 96 Oximetry - Intake and Output Intake and Output: Intake & Output 03/01/19 03/02/19 03/03/19 03/04/19 11:59 11:59 11:59 11:59 Intake Total 1634 2210 2247 Output Total 450 1500 Balance 7233 853 0440 Weight 152 lb 4.8 oz Intake: IV Fluids 489 490 692 ABX - PIPERACILLIN 175 Normal saline 489 50 692 Vancomycin 265 IVPB 425 595 ABX - PIPERACILLIN 125 330 Vancomycin 300 265 Oral 720 1720 960 Output: Urine 450 1500 Other: # Bowel Movements 0 0 # Voids 0 0 0 ADLs: Meal Record Start: 03/01/19 14: 49 Freq: DAILY@0900,1400,1800 Status: Active Protocol: Created 03/01/19 14:49 System (Rec: 03/01/19 14:49 System MED-M21) Document 03/01/19 18:00 [id number] (Rec: 03/01/19 19:44 [id number] MED-C05) Document 03/02/19 09:00 [id number] (Rec: 03/02/19 10:17 [id number] MED-C11) Document 03/02/19 12:58 [id number] (Rec: 03/02/19 12:59 [id number] MED-C11) Document 03/02/19 18:00 [id number] (Rec: 03/02/19 18:51 [id number] MED-C11) Document 03/03/19 09:00 [id number] (Rec: 03/03/19 13:01 [id number] MED-C11) Document 03/03/19 14:00 [id number] (Rec: 03/03/19 16:07 [id number] MED-C14) Document 03/03/19 18:00 [id number] (Rec: 03/03/19 18:40 [id number] MED-C09) Intake and Output Start: 03/01/19 14: 49 Freq: DAILY@0600,1400,2200 Status: Active Protocol: Created 03/01/19 14:49 System (Rec: 03/01/19 14:49 System MED-M21) Document 03/01/19 22:00 [id number] (Rec: 03/01/19 22:28 [id number] MED-C05) Document 03/02/19 04:15 [id number] (Rec: 03/02/19 04:15 [id number] MED-C02) Document 03/02/19 14:00 [id number] (Rec: 03/02/19 15:22 [id number] MED-C09) Document 03/02/19 22:00 [id number] (Rec: 03/02/19 22:12 [id number] MED-C11) Document 03/03/19 05:33 [id number] (Rec: 03/03/19 05:33 [id number] MEDL-C01) Document 03/03/19 14:00 [id number] (Rec: 03/03/19 16:07 [id number] MED-C14) Document 03/03/19 22:00 [id number] (Rec: 03/03/19 22:46 [id number] MED-C04) Document 03/04/19 05:54 [id number] (Rec: 03/04/19 05:55 [id number] MED-C04) - Physical Exam General Physical Exam Comment: Alert, oriented and in no distress. Nauseated General: No Cyanosis, No Anemia, No Jaundice, No Clubbing Lungs and Chest: Yes: Chest Expansion Full, Chest Expansion Symetrica, Percussion Note Resonant. No: Vessicular Breath Sounds - emphysematous, Crackles, Wheezes, Respiratory Distress, Use of Accessory Muscles Heart Rate and Rhythm: Regular Additional Cardiovascular: Yes: Normal Heart Sounds. No: Heart Murmur, Pedal Edema Abdominal Exam: Yes: Abdominal Tenderness. No: Distention Results - Results Lab Results: Laboratory Results - last 24 hr 03/03/19 03/03/19 03/03/19 08:10 11:41 17:20 POC Glucose (mg/dL) 125 H 215 H 154 H 03/03/19 20:22 POC Glucose (mg/dL) 164 H Assessment - Problem List Assessment: Patient Problems Left hallux osteomyelitis (Acute) Nausea (Acute) Peripheral neuropathy (Acute) Right hallux osteomyelitis (Acute) Carcinoma of rectum, stage 3 (Chronic) Emphysema lung (Chronic) Fecal incontinence (Chronic) Former smoker (Chronic) History of alcohol abuse (Chronic) Hypercholesterolemia (Chronic) Loose stools (Chronic) Type 2 diabetes mellitus, controlled (Chronic) Plan: Left hallux osteomyelitis (Acute)/ Right hallux osteomyelitis (Acute) He is due for surgery today Comorbidities: Nausea (Acute) This is likely caused by his antibiotics, although opioids are another possibility - he has taken these at home without nausea. I will check his LFTs. I will start him on IVF today with some dextrose to prevent ketosis and catabolism. Type 2 diabetes mellitus, controlled (Chronic) Adequately controlled Secondary diagnoses: Peripheral neuropathy (Acute) Ongoing Carcinoma of rectum, stage 3 (Chronic) Emphysema lung (Chronic) Fecal incontinence (Chronic) Former smoker (Chronic) History of alcohol abuse (Chronic) Hypercholesterolemia (Chronic) Loose stools (Chronic) He requires no further risk stratification to proceed with surgery - this is low risk. We may need to change his antibiotics after surgery if the nausea persists - or reconsider his analgesia. I discussed the above with Leonardo Pizano and his daughter Viola. She states that he may have some withdrawal from oxycodone to account for it - he takes 4 pills per day. This is pressure and pain in his rectum/spasms - generalized aches and pains throughout his body.
[2019-03-04] MEDS: Insulin LISPRO* 1 UNITS UNIT SUBCUT SCH ×3 (08:25→16:25)
[2019-03-04] MEDS ORDERED: Tetan/Diph/Pertus SYR(Tdap)* 0.5 ML SYR(BOOSTRIX) use SYR contains LATEX IM ONE (09:00)
[2019-03-04] MEDS ORDERED: D5W 1/2 NS KCl 20 Meq 1000 ML* 1,000 ML IV SCH (09:00)
[2019-03-04] MEDS: Ondansetron INJ* 2 MG/ML VIAL IV PRN ×2 (09:31→13:12)
[2019-03-04] MEDS: Morphine INJ* 2 MG/ML 1 ML SYRINGE (TWO MG - NEW SYRINGE VERSION) IV SCH ×3 (09:31→20:20)
[2019-03-04 09:32] LABS: BUN/Creatinine Ratio 12.9 (8-20); Calcium 8.1 mg/dL (8.6-10.3); EGFR African American 136.1 (>60); EGFR Non-African American 112.5 (>60); Potassium 3.8 mmol/L (3.5-5.0)
[2019-03-04] MEDS ORDERED: Propofol* 10 MG/ML 20 ML BTL ONE (10:47)
[2019-03-04] MEDS ORDERED: Lidocaine 2% PF* 10 ML AMP ONE (10:59)
[2019-03-04] MEDS ORDERED: Naloxone* 0.4 MG/ML 1 ML VIAL IV PRN (11:26)
[2019-03-04] MEDS: oxyCODONE TAB* 5 MG TAB PO PRN (13:12)
[2019-03-04] MEDS: Insulin NPH(*) 1 UNITS UNIT SUBCUT SCH (16:34)
--- NOTE | 2019-03-04 17:19 | CONS ---
CONSULTATION REPORT: DATE OF CONSULT: 03/04/19 PRIMARY CARE PROVIDER: Dr. Tra Conway. PROVIDER REQUESTING CONSULTATION: Isabell Villatoro NP CONSULTING SERVICE: Infectious Disease. PROVIDER: Aline Taylor NP ATTENDING PROVIDER: Dr. Edmundo Gonzalez.* (DICTATED BY ALINE TAYLOR NP) REASON FOR CONSULT: Bilateral first toe osteomyelitis. IMPRESSION: 1. Bilateral first toe osteomyelitis. The patient is afebrile with no leukocytosis, no neutropenia. MRI of the left foot with osteomyelitis of the first toe with cellulitis and right first phalanx osteomyelitis. Wound cultures with Staph aureus, this was consistent with previous results. He has been on Zosyn during his stay. Slightly elevated CRP at admission. Plans for surgery later today with orthopedics. 2. Diabetes mellitus type 2 with peripheral neuropathy. 3. Rectal cancer, status post chemo and radiation, awaiting surgery. RECOMMENDATIONS/PLAN: Recommend continuing Zosyn for now. We will continue to followup along, further recommendations will be based on cultures obtained in the operating room and findings in the OR. He will likely need an extended course of antibiotics for osteomyelitis. HISTORY OF PRESENT ILLNESS: Mr. Pizano is a 68-year-old male with past medical history significant for diabetes mellitus type 2; peripheral neuropathy; rectal cancer, status post chemotherapy and radiation; pancytopenia; and hyperlipidemia , who states that for the past few months he has had an ulcer on his right first toe and he has been following with [facility] regarding this. Additionally, he has had a wound for approximately a month on the left first toe after "stubbing his toe" approximately a month ago. He states that he has been feeling well. He states he was started on doxycycline per the wound clinic for concern for infection. According to the documentation , the wound clinic felt that the toe was worsening. Dr. Martins debrided the area and felt that there was evidence of bone being exposed with necrotic tissue. He has significant bilateral lower extremity neuropathy. He again bumped his left foot on Monday and noticed that that became more swollen. The patient was referred from the wound clinic to the emergency room for admission. While in the hospital, he has remained afebrile, no leukocytosis, elevated ESR of 52, CRP at admission 15.99. He had bilateral lower extremity MRI showing a left first toe with cellulitis and osteomyelitis and right first phalanx with osteomyelitis, mild right foot osteoarthritis. He has been on Zosyn. Wound cultures at admission with Staph aureus. Blood cultures with no growth. The patient is planned to go to the operating room with Orthopedic Surgery today. Denies fevers or chills. He reports nausea for 1 day. Denies vomiting, diarrhea, constipation, urinary symptoms, recent travel. He reports bilateral lower extremity neuropathy. PAST MEDICAL HISTORY: 1. Diabetes mellitus type 2. 2. Peripheral neuropathy. 3. Rectal cancer, status post chemotherapy with last dose in December of 2018, radiation with plans for surgery next month. 4. Pancytopenia. 5. Hyperlipidemia. PAST SURGICAL HISTORY: 1. Status post appendectomy. 2. Status post cataract extractions. MEDICATIONS: Home medications: 1. Oxycodone 5 mg by mouth every 4 hours as needed for pain. 2. Tramadol 50 mg by mouth 3 times daily as needed for pain. 3. Imodium A-D 2 mg by mouth every 6 hours as needed for diarrhea. 4. Flexeril 10 mg by mouth 3 times daily as needed for muscle spasms. 5. Atorvastatin 20 mg by mouth every evening. Hospital medications: 1. Acetaminophen 650 mg by mouth every 4 hours as needed for fever or pain. 2. Atorvastatin 20 mg by mouth every evening. 3. Flexeril 10 mg by mouth 3 times daily as needed for muscle spasms. 4. Dextrose 12.5 g IV push for glucose less than 60. 5. Heparin sodium 5 mL flush daily to port. 6. Humalog insulin sliding scale subcutaneous prior to meals. 7. NPH insulin 6 units subcutaneous twice daily. 8. Imodium 2 mg by mouth every 6 hours as needed for diarrhea. 9. Morphine sulfate 1 mg IV every 6 hours. 10. Zofran 4 mg IV every 4 hours as needed for nausea. 11. Oxycodone 5 mg by mouth every 4 hours as needed for pain. 12. Zosyn 3.375 g IV every 8 hours. 13. D5W half-normal saline 100 mL intravenously an hour. 14. Tramadol 50 mg by mouth 3 times daily as needed for pain. ALLERGIES: No known drug allergies. FAMILY HISTORY: Denies any family history of recurrent or resistant infections , coronary artery disease, diabetes. Paternal uncle and paternal grandmother with unknown cancer history. SOCIAL HISTORY: He occasionally drinks alcohol. He is a former smoker, quitting in 2005. Prior to that, he has a 7-xdsp-a-day 32-year smoking history. Denies recreational drugs. REVIEW OF SYSTEMS: I performed a 10-point review of systems. All the pertinent positives and negatives are mentioned in the history of present illness. The remaining review of systems are negative. PHYSICAL EXAM: Vital Signs: Temperature 97.8, heart rate 76, respiratory rate 19, O2 sat 97% on room air, blood pressure 91/54. General Appearance: He is alert, appears to be in no acute distress. Head: Normocephalic, atraumatic. EENT: Extraocular movements are intact. No subconjunctival hemorrhage. Neurological: Alert and oriented. Cranial nerves II through XII are grossly intact. Cardiovascular: Regular rate and rhythm. S1 and S2 present. No murmurs, rubs, or gallops heard. Respiratory: No accessory muscle use. The lungs are clear to auscultation bilaterally. Abdomen: Bowel sounds present. Abdomen is soft, nontender, nondistended. Extremities: No lower extremity edema. DP and PT pulses are 2+ and symmetric. Musculoskeletal: No clubbing or cyanosis noted. The patient exhibits good strength in all extremities. Psychological: Calm and cooperative. Skin: No rashes seen. The patient is noted to have an edematous right first toe with a large ulcer on the plantar aspect approximately 4 x 3 cm x 0.1 cm. The wound base of this wound is moist, white necrotic tissue with a moderate amount of serous drainage. He is also noted to have a dry necrotic ulcer consistent with a diabetic ulcer to the distal aspect of the left first toe approximately 0.4 x 0.8 x 0.1 cm. There is no drainage surrounding. Skin is intact. There is no erythema. DIAGNOSTIC STUDIES/LAB DATA: Labs from 03/03/19: Sodium 141, potassium 4.2, chloride 108, CO2 30, BUN 8, creatinine 0.72, glucose 101. White blood cell count 3.9, hemoglobin 10.7, hematocrit 32, platelet count 150. ESR from was 52, CRP 15.99. Please see impression and recommendations outlined above. Recommendations have been discussed with CAROL Hanna. Thank you for asking us to see Mr. Pizano in consultation. The case has been reviewed with my attending Dr. Edmundo Gonzalez, who agrees with the plan of care. Reviewed by ALINE TAYLOR, TANJA-Nina 03/07/19 1100 [id number]/[facility] #: [id number] RIC
[2019-03-04] MEDS: Atorvastatin* 20 MG TAB PO SCH (18:16)
--- NOTE | 2019-03-05 02:22 | OP ---
DATE OF OPERATION: 03/04/19 - ROOM #411 DATE OF : 52 SURGEON: Trevor Eddy MD PULP GRINDER AND BLENDER: CAROL Saldana PRE-OP DIAGNOSIS: Necrotic infected right second toe, great toe and left great toe. POST-OP DIAGNOSIS: Necrotic infected right second toe, great toe and left great toe. OPERATIVE PROCEDURE: Disarticulation of right and left first MTP joints and right second PIP joint. DESCRIPTION OF PROCEDURE: The patient was taken to the operating room where ankle Esmarch was placed at the left ankle. A transverse elliptical incision was made at the proximal phalanx of the left great toe, dissecting proximally under the flap to disarticulate the MTP joint. The tourniquet was dropped after irrigating. Local hemostasis obtained and then closure of 2-0 Monocryl dorsal to plantar with 2-0 Prolene for the skin. Right side had the tourniquet inflated again at the ankle with an Esmarch. Similar transverse elliptical incision at the proximal phalanx of the great toe, dissecting proximally subcutaneously to disarticulate the MTP joint. Hemostasis was obtained after dropping the tourniquet. Thorough irrigation and closure of 2-0 Monocryl dorsal to plantar and 2-0 Prolene for the skin. The second toe had a transverse elliptical incision at the middle phalanx dissecting proximally to disarticulate at the PIP joint. Similar hemostasis obtained after irrigation and closure of 3-0 Monocryl dorsal to plantar and Prolene for the skin. Compression dressings were applied to both feet and the toe was sent to Pathology. [id number]/[facility] #: [id number] MTDLeida
[2019-03-05] MEDS: ZOSYN 3.375 GM Q8H per EXTENDED INFUSION IVPB SCH ×2 (03:19)
[2019-03-05] MEDS: Morphine INJ* 2 MG/ML 1 ML SYRINGE (TWO MG - NEW SYRINGE VERSION) IV SCH (03:20)
[2019-03-05 06:10] LABS: ABS Lymphocytes 0.3 10^3/ul (1.0-4.8); ABS Monocytes 0.3 10^3/ul (0-0.8); ABS Neutrophils 6.6 10^3/ul (1.5-7.7); Eosinophil % 0.3 %; Hematocrit 32 % (42-52); Hemoglobin 10.4 g/dL (14.0-18.0); Lymphocyte % 4.1 %; Mean Corpuscular HGB Conc 33 g/dL (31-36); Mean Corpuscular Hemoglobin 31 pg (27-31); Mean Corpuscular Volume 93 fL (80-94); Mean Platelet Volume 8.6 fL (7.4-10.4); Platelet Count 154 10^3/uL (150-450); Red Blood Count 3.39 10^6 /uL (4.18-5.48); Red Cell Distribution Width 17 % (10-15); White Blood Count 7.3 10^3/uL (3.5-10.8)
[2019-03-05 06:28] LABS: Albumin 2.6 g/dL (3.2-5.2); BUN/Creatinine Ratio 12.5 (8-20); Calcium 7.7 mg/dL (8.6-10.3); EGFR African American 150.9 (>60); EGFR Non-African American 124.7 (>60); Globulin 2.7 g/dL (2-4); Indirect Bilirubin 0.4 mg/dL (0.3-1.0); Potassium 3.7 mmol/L (3.5-5.0); Total Bilirubin 0.6 mg/dL (0.2-1.0); Total Protein 5.3 g/dL (6.4-8.9)
[2019-03-05] MEDS: Insulin NPH(*) 1 UNITS UNIT SUBCUT SCH (06:36)
--- NOTE | 2019-03-05 08:04 | PN ---
Subjective - Subjective Reason for Note: Progress Note History: Leonardo Pizano tolerated the amputations yesterday. His nausea went away with regular morphine - likely a withdrawal phenomenon. He has no new symptoms today. His breathing is free, he has no chest discomfort and his abdomen is pain-free. He is eating and drinking. Current Medications: Current Medications Acetaminophen (Tylenol Tab*) 650 mg PO Q4H PRN PRN Reason: MILD PAIN or TEMP > 100.4 Last Admin: 03/03/19 11:45 Dose: 650 mg Atorvastatin Calcium (Lipitor*) 20 mg PO QPM [facility] Last Admin: 03/04/19 18:16 Dose: 20 mg Cyclobenzaprine HCl (Flexeril Tab*) 10 mg PO TID PRN PRN Reason: muscle spasms Dextrose (D50w Syringe 50 Ml*) 12.5 gm IV PUSH .FOR FS < 60 - SS PRN PRN Reason: FS < 60 Heparin Sodium (Porcine) (Heparin Flush Port (Ivad)) 5 ml FLUSH DAILY [facility]; Protocol Last Admin: 03/04/19 08:25 Dose: Not Given Piperacillin Sod/Tazobactam (Sod 3.375 gm/ Sodium Chloride) 100 mls @ 25 mls/ hr IVPB Q8H [facility] Last Admin: 03/05/19 03:19 Dose: 25 mls/hr Insulin Human Lispro (Humalog*) 0 units SUBCUT AC [facility]; Protocol Last Admin: 03/04/19 16:25 Dose: Not Given Loperamide HCl (Imodium Cap*) 2 mg PO Q6HR PRN PRN Reason: DIARRHEA Morphine Sulfate (Morphine Inj (Syringe))*) 1 mg IV Q6H [facility] Last Admin: 03/05/19 03:20 Dose: 1 mg Ondansetron HCl (Zofran Inj*) 4 mg IV Q4H PRN PRN Reason: NAUSEA/VOMITING Last Admin: 03/04/19 13:12 Dose: 4 mg Oxycodone HCl (Roxycodone Tab*) 5 mg PO Q4H PRN PRN Reason: PAIN - MODERATE Last Admin: 03/04/19 13:12 Dose: 5 mg Pharmacy Consult (Zosyn Per Pharmacy*) 1 note FOLLOW UP .ZOSYN PER PHARMACY [facility] Tramadol HCl (Ultram*) 50 mg PO TID PRN PRN Reason: PAIN - MILD Home Medications: Home Medications Medication Instructions Recorded Confirmed Type Atorvastatin* [Lipitor 20 MG*] 20 mg PO QPM 11/13/18 03/01/19 History Loperamide HCl [Imodium A-D] 2 mg PO Q6HR PRN 12/27/18 03/01/19 History oxyCODONE TAB* [Roxycodone TAB 5 5 mg PO Q4H PRN #60 tab MDD 20 mg 12/31/18 Rx mg*] Cyclobenzaprine TAB* [Flexeril 10 10 mg PO TID PRN 01/22/19 03/01/19 History MG TAB*] Tramadol HCl 50 mg PO TID PRN 01/22/19 03/01/19 History Allergies: Allergies Allergy/AdvReac Type Severity Reaction Status Date / Time No Known Allergies Allergy Verified 01/22/19 18:47 Objective - Vital Signs Vital Signs: Vital Signs 03/04/19 03/04/19 03/04/19 08:00 09:31 11:43 Temperature 97.3 F Pulse Rate Respiratory 18 18 16 Rate Blood Pressure (mmHg) O2 Sat by Pulse Oximetry 03/04/19 03/04/19 03/04/19 11:44 11:45 11:50 Temperature Pulse Rate 68 67 66 Respiratory 18 3 Rate Blood Pressure 112/66 118/63 (mmHg) O2 Sat by Pulse 95 97 96 Oximetry 03/04/19 03/04/19 03/04/19 11:55 12:05 12:40 Temperature 97.4 F Pulse Rate 66 Respiratory 14 14 18 Rate Blood Pressure 122/63 (mmHg) O2 Sat by Pulse 97 Oximetry 03/04/19 03/04/19 03/04/19 13:12 14:30 16:00 Temperature 97.7 F Pulse Rate 63 Respiratory 18 19 Rate Blood Pressure 105/58 (mmHg) O2 Sat by Pulse 97 96 Oximetry 03/04/19 03/04/19 03/04/19 16:35 17:10 18:55 Temperature 98 F 98.3 F Pulse Rate 63 62 Respiratory 18 19 18 Rate Blood Pressure 92/37 94/50 (mmHg) O2 Sat by Pulse 96 97 Oximetry 03/04/19 03/04/19 03/04/19 19:18 20:00 20:20 Temperature Pulse Rate Respiratory 18 17 16 Rate Blood Pressure (mmHg) O2 Sat by Pulse Oximetry 03/04/19 03/04/19 03/04/19 22:33 22:44 22:58 Temperature 99.1 F Pulse Rate 63 Respiratory 16 16 Rate Blood Pressure 107/53 (mmHg) O2 Sat by Pulse 97 97 Oximetry 03/05/19 03/05/19 03/05/19 03:20 05:41 05:57 Temperature Pulse Rate Respiratory 17 16 Rate Blood Pressure (mmHg) O2 Sat by Pulse 97 Oximetry 03/05/19 03/05/19 06:38 07:40 Temperature 97.6 F 97.9 F Pulse Rate 67 64 Respiratory 16 18 Rate Blood Pressure 102/51 108/53 (mmHg) O2 Sat by Pulse 98 100 Oximetry - Intake and Output Intake and Output: Intake & Output 03/02/19 03/03/19 03/04/19 03/05/19 11:59 11:59 11:59 11:59 Intake Total 1634 2210 2247 1716 Output Total 450 1500 1200 Balance 3727 840 6327 516 Weight 152 lb 4.8 oz Intake: IV Fluids 489 267 588 5273 ABX - PIPERACILLIN 175 D51/2NSw/20KCL 1606 Normal saline 489 50 692 Vancomycin 265 IVPB 425 595 110 ABX - PIPERACILLIN 125 330 ABX - ZOSYN 110 Vancomycin 300 265 Oral 720 1720 960 0 Output: Urine 450 1500 1200 Other: # Bowel Movements 0 0 # Voids 0 0 0 ADLs: Meal Record Start: 03/01/19 14: 49 Freq: DAILY@0900,1400,1800 Status: Active Protocol: Created 03/01/19 14:49 System (Rec: 03/01/19 14:49 System MED-M21) Document 03/01/19 18:00 [id number] (Rec: 03/01/19 19:44 [id number] MED-C05) Document 03/02/19 09:00 [id number] (Rec: 03/02/19 10:17 [id number] MED-C11) Document 03/02/19 12:58 [id number] (Rec: 03/02/19 12:59 [id number] MED-C11) Document 03/02/19 18:00 [id number] (Rec: 03/02/19 18:51 [id number] MED-C11) Document 03/03/19 09:00 [id number] (Rec: 03/03/19 13:01 [id number] MED-C11) Document 03/03/19 14:00 [id number] (Rec: 03/03/19 16:07 [id number] MED-C14) Document 03/03/19 18:00 [id number] (Rec: 03/03/19 18:40 [id number] MED-C09) Document 03/04/19 09:00 [id number] (Rec: 03/04/19 09:39 [id number] MED-C09) Intake and Output Start: 03/01/19 14: 49 Freq: DAILY@0600,1400,2200 Status: Active Protocol: Created 03/01/19 14:49 System (Rec: 03/01/19 14:49 System MED-M21) Document 03/01/19 22:00 [id number] (Rec: 03/01/19 22:28 [id number] MED-C05) Document 03/02/19 04:15 [id number] (Rec: 03/02/19 04:15 [id number] MED-C02) Document 03/02/19 14:00 [id number] (Rec: 03/02/19 15:22 [id number] MED-C09) Document 03/02/19 22:00 [id number] (Rec: 03/02/19 22:12 [id number] MED-C11) Document 03/03/19 05:33 [id number] (Rec: 03/03/19 05:33 [id number] MEDL-C01) Document 03/03/19 14:00 [id number] (Rec: 03/03/19 16:07 [id number] MED-C14) Document 03/03/19 22:00 [id number] (Rec: 03/03/19 22:46 [id number] MED-C04) Document 03/04/19 05:54 [id number] (Rec: 03/04/19 05:55 [id number] MED-C04) Document 03/04/19 14:00 [id number] (Rec: 03/04/19 14:59 [id number] MED-C09) Document 03/04/19 22:00 [id number] (Rec: 03/04/19 23:12 [id number] MED-C11) Document 03/05/19 05:39 [id number] (Rec: 03/05/19 05:39 [id number] [place] [place] Physical Exam General: No Cyanosis, No Anemia, No Jaundice, No Clubbing Lungs and Chest: Yes: Chest Expansion Full, Chest Expansion Symetrica, Percussion Note Resonant. No: Vessicular Breath Sounds - emphesematous, Crackles, Wheezes Heart Rate and Rhythm: Regular Additional Cardiovascular: Yes: Normal Heart Sounds. No: Heart Murmur Abdominal Exam: Yes: Soft. No: Distention, Abdominal Tenderness Results - Results Lab Results: Laboratory Results - last 24 hr 03/04/19 03/04/19 03/04/19 08:22 08:38 10:08 WBC RBC Hgb Hct MCV MCH MCHC RDW Plt Count MPV Neut % (Auto) Lymph % (Auto) [place] % (Auto) Eos % (Auto) Baso % (Auto) Absolute Neuts (auto) Absolute Lymphs (auto) Absolute Monos (auto) Absolute Eos (auto) Absolute Basos (auto) Absolute Nucleated RBC Nucleated RBC % Sodium 141 Potassium 3.8 Chloride 105 Carbon Dioxide 30 Anion Gap 6 BUN 9 Creatinine 0.70 Est GFR ( Amer) 136.1 Est GFR (Non-Af Amer) 112.5 BUN/Creatinine Ratio 12.9 Glucose 125 H POC Glucose (mg/dL) 139 H 147 H Calcium 8.1 L Total Bilirubin Direct Bilirubin Indirect Bilirubin AST ALT Alkaline Phosphatase Total Protein Albumin Globulin Albumin/Globulin Ratio 03/04/19 03/04/19 03/05/19 16:20 22:49 05:35 WBC RBC Hgb Hct MCV MCH MCHC RDW Plt Count MPV Neut % (Auto) Lymph % (Auto) [place] % (Auto) Eos % (Auto) Baso % (Auto) Absolute Neuts (auto) Absolute Lymphs (auto) Absolute Monos (auto) Absolute Eos (auto) Absolute Basos (auto) Absolute Nucleated RBC Nucleated RBC % Sodium 141 Potassium 3.7 Chloride 108 Carbon Dioxide 29 Anion Gap 4 BUN 8 Creatinine 0.64 L Est GFR ( Amer) 150.9 Est GFR (Non-Af Amer) 124.7 BUN/Creatinine Ratio 12.5 Glucose 89 POC Glucose (mg/dL) 163 H 101 H Calcium 7.7 L Total Bilirubin 0.60 Direct Bilirubin 0.20 H Indirect Bilirubin 0.4 AST 14 ALT 15 Alkaline Phosphatase 88 Total Protein 5.3 L Albumin 2.6 L Globulin 2.7 Albumin/Globulin Ratio 1.0 03/05/19 05:35 WBC 7.3 RBC 3.39 L Hgb 10.4 L Hct 32 L MCV 93 MCH 31 MCHC 33 RDW 17 H Plt Count 154 MPV 8.6 Neut % (Auto) 90.4 Lymph % (Auto) 4.1 [place] % (Auto) 4.7 Eos % (Auto) 0.3 Baso % (Auto) 0.5 Absolute Neuts (auto) 6.6 Absolute Lymphs (auto) 0.3 L Absolute Monos (auto) 0.3 Absolute Eos (auto) 0.0 Absolute Basos (auto) 0.0 Absolute Nucleated RBC 0.0 Nucleated RBC % 0.0 Sodium Potassium Chloride Carbon Dioxide Anion Gap BUN Creatinine Est GFR ( Amer) Est GFR (Non-Af Amer) BUN/Creatinine Ratio Glucose POC Glucose (mg/dL) Calcium Total Bilirubin Direct Bilirubin Indirect Bilirubin AST ALT Alkaline Phosphatase Total Protein Albumin Globulin Albumin/Globulin Ratio Assessment - Problem List Assessment: Patient Problems Left hallux osteomyelitis (Acute) Nausea (Acute) Peripheral neuropathy (Acute) Right hallux osteomyelitis (Acute) Carcinoma of rectum, stage 3 (Chronic) Emphysema lung (Chronic) Fecal incontinence (Chronic) Former smoker (Chronic) History of alcohol abuse (Chronic) Hypercholesterolemia (Chronic) Loose stools (Chronic) Type 2 diabetes mellitus, controlled (Chronic) Plan: Left hallux osteomyelitis (Acute) Right hallux osteomyelitis (Acute) He is post amputation. He has a port though which we can deliver antibacterials until we decide upon the route and specific agent. I would like to choose an equivalent to piperacillin/tazobactam that can be given once or twice daily, instead of 4 times per day to facilitate home administration. Nausea (Acute) This resolved with qid morphine 1 mg. I will change him to oxycodone 5 mg qid scheduled. The nausea was likely withdrawal comorbidities: Type 2 diabetes mellitus, controlled (Chronic) well controlled secondary diagnoses: Peripheral neuropathy (Acute) Carcinoma of rectum, stage 3 (Chronic) Emphysema lung (Chronic) Fecal incontinence (Chronic) Former smoker (Chronic) History of alcohol abuse (Chronic) Hypercholesterolemia (Chronic) Loose stools (Chronic) We will arrange for home parenteral antibiotic treatment and plan to get him home tomorrow. His daughter Melvin is a HISTOTECHNOLOGIST and is capable of helping with home antibiotics. I spoke with the patient and Viola (on the phone) and they agree with this plan. This is contingent on orthopedic approval.
[2019-03-05] MEDS: Insulin LISPRO* 1 UNITS UNIT SUBCUT SCH ×3 (08:28→16:45)
[2019-03-05] MEDS: oxyCODONE TAB* 5 MG TAB PO SCH ×3 (08:35→20:36)
--- NOTE | 2019-03-05 09:04 | PN ---
Progress Note - Progress Note Date of Service: 03/05/19 SOAP: Subjective: CC: Bilateral 1st toe infections HPI: Mr. Pizano is a 68 yo male with PMH significant for DM2, peripheral neuropathy, rectal cancer s/p chemotherapy and radiation, pancytopenia, and HLD; who presented to the hospital from the wound clinic with concern for bilateral 1st toe infections. Denies fever, chills, nausea, vomiting, or diarrhea. He reports that he is feeling well. Denies pain. Objective: Vital Signs - 8 hr 03/05/19 03/05/19 03/05/19 06:38 07:40 08:35 Temperature 97.6 F 97.9 F Pulse Rate 67 64 Respiratory 16 18 16 Rate Blood Pressure 102/51 108/53 (mmHg) O2 Sat by Pulse 98 100 Oximetry Physical Exam: General: NAD, laying in bed Neurological: Alert and Oriented x4. Decreased sensation to bilateral LEs HEENT: Moist MM, no thrush Cardiovascular: Heart rate regular Respiratory: Lung sounds clear Abdominal: Bowel sounds present; ABD soft, non tender and non distended Skin: No rash. Surgical DSGs to bilateral feet; clean, dry and intact Laboratory Results - last 24 hr 03/04/19 03/04/19 03/04/19 08:38 10:08 16:20 Sodium 141 Potassium 3.8 Chloride 105 Carbon Dioxide 30 Anion Gap 6 BUN 9 Creatinine 0.70 Est GFR ( Amer) 136.1 Est GFR (Non-Af Amer) 112.5 BUN/Creatinine Ratio 12.9 Glucose 125 H POC Glucose (mg/dL) 147 H 163 H Calcium 8.1 L 03/04/19 03/05/19 03/05/19 22:49 05:35 05:35 WBC 7.3 RBC 3.39 L Hgb 10.4 L Hct 32 L MCV 93 MCH 31 MCHC 33 RDW 17 H Plt Count 154 MPV 8.6 Neut % (Auto) 90.4 Lymph % (Auto) 4.1 [place] % (Auto) 4.7 Eos % (Auto) 0.3 Baso % (Auto) 0.5 Absolute Neuts (auto) 6.6 Absolute Lymphs (auto) 0.3 L Absolute Monos (auto) 0.3 Absolute Eos (auto) 0.0 Absolute Basos (auto) 0.0 Absolute Nucleated RBC 0.0 Nucleated RBC % 0.0 Sodium 141 Potassium 3.7 Chloride 108 Carbon Dioxide 29 Anion Gap 4 BUN 8 Creatinine 0.64 L Est GFR ( Amer) 150.9 Est GFR (Non-Af Amer) 124.7 BUN/Creatinine Ratio 12.5 Glucose 89 POC Glucose (mg/dL) 101 H Calcium 7.7 L Total Bilirubin 0.60 Direct Bilirubin 0.20 H Indirect Bilirubin 0.4 AST 14 ALT 15 Alkaline Phosphatase 88 Total Protein 5.3 L Albumin 2.6 L Globulin 2.7 Albumin/Globulin Ratio 1.0 Microbiology 03/01/19 16:40 Aerobic Blood Culture - Preliminary Blood Venous No Growth Day 3 Anaerobic Blood Culture - Final 03/01/19 15:20 Aerobic Blood Culture - Preliminary Blood Venous No Growth Day 3 Anaerobic Blood Culture - Preliminary No Growth Day 3 03/01/19 14:53 Gram Stain - Final Toe - Left Big Wound Culture - Final Staphylococcus Aureus Normal Lynnette 03/01/19 14:53 Gram Stain - Final Toe - Right Big Wound Culture - Final Staphylococcus Aureus Normal Lynnette Assessment: 1. Bilateral 1st toe acute osteomyelitis. MRIs of bilateral feet with osteomyelitis. Bilateral 1st toe cultures with staph aureus. Blood cultures with no growth. No leukocytosis and afebrile. CRP 15.99 at admission. 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 Culture and pathology results from the OR pending. 2. DM2 with peripheral neuropathy. 3. Rectal cancer. Last chemotherapy in December 2018. Plan: Discontinue Zosyn and start Ancef 2gm IV Q8H. He will need to have a prolonged course of IV ABX, 4-6 weeks. Day 2 of ABX. Pt already has a powerport in place, no need for a PICC line. Weekly labs while on IV ABX: CBC, CMP, and CRP. Followup with ID outpatient in 1-2 weeks. 25 minutes floor time: >50% spent with the patient discussing recommendations for an extended course of IV ABX, routine labs, and when to call the office ( fever, rash, diarrhea)
--- NOTE | 2019-03-05 11:06 | PN ---
Progress Note - Progress Note Date of Service: 03/05/19 SOAP: Subjective: []Pt seen and examined at bedside. He feels well without complaints. No LE pain. Denies CP, SOB, dizziness, nausea. Objective: []Gen: NAD, nontoxic appearing RLE: Dressing CDI, able to f/e at remaining MTPs, insensate distally which is baseline, cap refill less than two seconds distally, calf supple and nontender LLE: Dressing CDI, able to f/e at remaining MTPs, insensate distally which is baseline, cap refill less than two seconds distally, calf supple and nontender Assessment: [] Necrotic infected right second toe, great toe and left great toe. OPERATIVE PROCEDURE: Disarticulation of right and left first MTP joints and right second PIP joint. Plan: []Heel WB BL LE Keep dressing CDI, wound check prior to DC Cont IV abx per ID- cefazolin to cover MSSA. Anticipate 6 weeks IV abx. Daughter is an POLITICAL SCIENCE PROFESSOR that previously worked with Dr Eddy Vital Signs Temp 97.9 F 03/05/19 07:40 Pulse 64 03/05/19 07:40 Resp 18 03/05/19 10:33 BP 108/53 03/05/19 07:40 Pulse Ox 100 03/05/19 07:40 Intake & Output 03/04/19 03/05/19 03/05/19 18:59 06:59 18:59 Intake Total 0 1716 Output Total 1200 Balance 0 516 Intake: IV Fluids 1606 D51/2NSw/20KCL 1606 IVPB 110 ABX - ZOSYN 110 Oral 0 0 Output: Urine 1200 Laboratory Last Values WBC 7.3 10^3/uL (3.5-10.8) 03/05/19 05:35 RBC 3.39 10^6 /uL (4.18-5.48) L 03/05/19 05:35 Hgb 10.4 g/dL (14.0-18.0) L 03/05/19 05:35 Hct 32 % (42-52) L 03/05/19 05:35 MCV 93 fL (80-94) 03/05/19 05:35 MCH 31 pg (27-31) 03/05/19 05:35 MCHC 33 g/dL (31-36) 03/05/19 05:35 RDW 17 % (10-15) H 03/05/19 05:35 Plt Count 154 10^3/uL (150-450) 03/05/19 05:35 MPV 8.6 fL (7.4-10.4) 03/05/19 05:35 Neut % (Auto) 90.4 % 03/05/19 05:35 Lymph % (Auto) 4.1 % 03/05/19 05:35 [place] % (Auto) 4.7 % 03/05/19 05:35 Eos % (Auto) 0.3 % 03/05/19 05:35 Baso % (Auto) 0.5 % 03/05/19 05:35 Absolute Neuts (auto) 6.6 10^3/ul (1.5-7.7) 03/05/19 05:35 Absolute Lymphs (auto) 0.3 10^3/ul (1.0-4.8) L 03/05/19 05:35 Absolute Monos (auto) 0.3 10^3/ul (0-0.8) 03/05/19 05:35 Absolute Eos (auto) 0.0 10^3/ul (0-0.6) 03/05/19 05:35 Absolute Basos (auto) 0.0 10^3/ul (0-0.2) 03/05/19 05:35 Absolute Nucleated RBC 0.0 10^3/ul 03/05/19 05:35 Nucleated RBC % 0.0 03/05/19 05:35 ESR 52 mm/Hr (0-19) H 03/02/19 10:00 INR (Anticoag Therapy) 1.16 (0.82-1.09) H 03/01/19 15:20 Sodium 141 mmol/L (135-145) 03/05/19 05:35 Potassium 3.7 mmol/L (3.5-5.0) 03/05/19 05:35 Chloride 108 mmol/L (101-111) 03/05/19 05:35 Carbon Dioxide 29 mmol/L (22-32) 03/05/19 05:35 Anion Gap 4 mmol/L (2-11) 03/05/19 05:35 BUN 8 mg/dL (6-24) 03/05/19 05:35 Creatinine 0.64 mg/dL (0.67-1.17) L 03/05/19 05:35 Est GFR ( Amer) 150.9 (>60) 03/05/19 05:35 Est GFR (Non-Af Amer) 124.7 (>60) 03/05/19 05:35 BUN/Creatinine Ratio 12.5 (8-20) 03/05/19 05:35 Glucose 89 mg/dL (70-100) 03/05/19 05:35 POC Glucose (mg/dL) 154 mg/dL (70-100) H 03/05/19 08:00 Hemoglobin A1c 6.0 % (4.0-5.6) H 03/01/19 15:20 Insulin Level 4.8 mcIU/mL (2.0-16.0) 03/03/19 05:14 Lactic Acid 0.9 mmol/L (0.5-2.0) 03/01/19 15:20 Calcium 7.7 mg/dL (8.6-10.3) L 03/05/19 05:35 Total Bilirubin 0.60 mg/dL (0.2-1.0) 03/05/19 05:35 Direct Bilirubin 0.20 mg/dL (0.03-0.18) H 03/05/19 05:35 Indirect Bilirubin 0.4 mg/dL (0.3-1.0) 03/05/19 05:35 AST 14 U/L (13-39) 03/05/19 05:35 ALT 15 U/L (7-52) 03/05/19 05:35 Alkaline Phosphatase 88 U/L (34-104) 03/05/19 05:35 C-Reactive Protein 15.99 mg/L (<8.01) H 03/02/19 10:00 Total Protein 5.3 g/dL (6.4-8.9) L 03/05/19 05:35 Albumin 2.6 g/dL (3.2-5.2) L 03/05/19 05:35 Globulin 2.7 g/dL (2-4) 03/05/19 05:35 Albumin/Globulin Ratio 1.0 (1-3) 03/05/19 05:35 Vitamin B12 410 pg/mL (180-914) 03/02/19 10:00 Cortisol 12.57 mcg/dL 03/03/19 05:14 Vancomycin Trough 14.6 mcg/mL 03/02/19 16:38 Hep Bs Antigen Nonreactive (Nonreactive) 03/02/19 10:00 Microbiology 03/01/19 16:40 Aerobic Blood Culture - Preliminary Blood Venous No Growth Day 3 Anaerobic Blood Culture - Final 03/01/19 15:20 Aerobic Blood Culture - Preliminary Blood Venous No Growth Day 3 Anaerobic Blood Culture - Preliminary No Growth Day 3 03/01/19 14:53 Gram Stain - Final Toe - Left Big Wound Culture - Final Staphylococcus Aureus Normal Lynnette
[2019-03-05] MEDS: ceFAZolin 2 GM PREMIX in ORs 2 GM/50 ML BAG IVPB SCH ×2 (11:57→20:36)
[2019-03-05] MEDS: Atorvastatin* 20 MG TAB PO SCH (17:23)
--- NOTE | 2019-03-05 18:02 | PN ---
PROGRESS NOTE: DATE OF SERVICE: 03/05/19 INTERVAL HISTORY: Leonardo is recovering from his bilateral first MTP joint disarticulations. He is n ot having any pain. He is afebrile. His dressings are dry. The preliminary cultures from both toes have some Staphylococcus aureus. He is receiving cefazolin. My plan for him would be dressing change tomorrow, heel weightbearing with postop shoes and then disc harge on some oral antibiotics. I am happy to see him back in a week in the office. [id number]/[facility] #: [id number]
[2019-03-05] MEDS: Acetaminophen TAB* 325 MG PO PRN (20:37)
[2019-03-06] MEDS: oxyCODONE TAB* 5 MG TAB PO SCH ×2 (02:53→08:59)
[2019-03-06] MEDS: ceFAZolin 2 GM PREMIX in ORs 2 GM/50 ML BAG IVPB SCH ×2 (04:55→12:45)
[2019-03-06] MEDS: Insulin LISPRO* 1 UNITS UNIT SUBCUT SCH ×2 (07:53→12:43)
--- NOTE | 2019-03-06 08:30 | PN ---
Subjective - Subjective Reason for Note: Discharge Note History: We are hoping to discharge him today, but there is delay due to insurance approval for home IV antibacterial care. He has no pain. He has some appetite - though his sense of taste is diminished. He has had small bowel movements. He has no respiratory, cardiovascular or digestive symptoms today Current Medications: Current Medications Acetaminophen (Tylenol Tab*) 650 mg PO Q4H PRN PRN Reason: MILD PAIN or TEMP > 100.4 Last Admin: 03/05/19 20:37 Dose: 650 mg Atorvastatin Calcium (Lipitor*) 20 mg PO QPM YELITZA Last Admin: 03/05/19 17:23 Dose: 20 mg Cyclobenzaprine HCl (Flexeril Tab*) 10 mg PO TID PRN PRN Reason: muscle spasms Dextrose (D50w Syringe 50 Ml*) 12.5 gm IV PUSH .FOR FS < 60 - SS PRN PRN Reason: FS < 60 Heparin Sodium (Porcine) (Heparin Flush Port (Ivad)) 5 ml FLUSH DAILY [facility]; Protocol Last Admin: 03/06/19 05:39 Dose: 5 ml Cefazolin Sodium/Dextrose (Kefzol 2 Gm Premix In Ors(*)) 2 gm in 50 mls @ 100 mls/hr IVPB Q8H [facility] Last Admin: 03/06/19 04:55 Dose: 100 mls/hr Insulin Human Lispro (Humalog*) 0 units SUBCUT AC [facility]; Protocol Last Admin: 03/06/19 07:53 Dose: Not Given Loperamide HCl (Imodium Cap*) 2 mg PO Q6HR PRN PRN Reason: DIARRHEA Ondansetron HCl (Zofran Inj*) 4 mg IV Q4H PRN PRN Reason: NAUSEA/VOMITING Last Admin: 03/04/19 13:12 Dose: 4 mg Oxycodone HCl (Roxycodone Tab*) 5 mg PO Q4H PRN PRN Reason: PAIN - MODERATE Last Admin: 03/04/19 13:12 Dose: 5 mg Oxycodone HCl (Roxycodone Tab*) 5 mg PO Q6H [facility] Last Admin: 03/06/19 02:53 Dose: 5 mg Tramadol HCl (Ultram*) 50 mg PO TID PRN PRN Reason: PAIN - MILD Home Medications: Home Medications Medication Instructions Recorded Confirmed Type Atorvastatin* [Lipitor 20 MG*] 20 mg PO QPM 11/13/18 03/01/19 History Loperamide HCl [Imodium A-D] 2 mg PO Q6HR PRN 12/27/18 03/01/19 History oxyCODONE TAB* [Roxycodone TAB 5 5 mg PO Q4H PRN #60 tab MDD 20 mg 12/31/18 Rx mg*] Cyclobenzaprine TAB* [Flexeril 10 10 mg PO TID PRN 01/22/19 03/01/19 History MG TAB*] Tramadol HCl 50 mg PO TID PRN 01/22/19 03/01/19 History Allergies: Allergies Allergy/AdvReac Type Severity Reaction Status Date / Time No Known Allergies Allergy Verified 01/22/19 18:47 Objective - Vital Signs Vital Signs: Vital Signs 03/05/19 03/05/19 03/05/19 08:35 10:33 11:40 Temperature 98.1 F Pulse Rate 67 Respiratory 16 18 18 Rate Blood Pressure 94/53 (mmHg) O2 Sat by Pulse 100 Oximetry 03/05/19 03/05/19 03/05/19 11:55 15:04 15:13 Temperature 97.9 F Pulse Rate 63 Respiratory 18 16 Rate Blood Pressure 106/54 111/52 (mmHg) O2 Sat by Pulse 99 Oximetry 03/05/19 03/05/19 03/05/19 17:23 19:33 19:45 Temperature 98.3 F Pulse Rate 61 Respiratory 18 18 Rate Blood Pressure 84/47 95/50 (mmHg) O2 Sat by Pulse 97 Oximetry 03/05/19 03/05/19 03/05/19 20:00 20:36 22:52 Temperature 98.1 F Pulse Rate 60 Respiratory 18 18 18 Rate Blood Pressure 84/45 (mmHg) O2 Sat by Pulse 97 Oximetry 03/05/19 03/06/19 03/06/19 23:00 00:00 02:47 Temperature 97.5 F Pulse Rate 60 Respiratory 18 18 Rate Blood Pressure 105/60 84/46 (mmHg) O2 Sat by Pulse 96 Oximetry 03/06/19 03/06/19 03/06/19 02:53 03:00 05:24 Temperature Pulse Rate Respiratory 18 18 Rate Blood Pressure 95/60 (mmHg) O2 Sat by Pulse Oximetry 03/06/19 07:15 Temperature 98.8 F Pulse Rate 59 Respiratory 20 Rate Blood Pressure 114/58 (mmHg) O2 Sat by Pulse 97 Oximetry - Intake and Output Intake and Output: Intake & Output 03/03/19 03/04/19 03/05/19 03/06/19 11:59 11:59 11:59 11:59 Intake Total 2210 2247 1716 805 Output Total 1500 1200 250 Balance 710 2247 516 555 Intake: IV Fluids 773 154 3544 40 ABX - PIPERACILLIN 175 D51/2NSw/20KCL 1606 Normal saline 50 692 40 Vancomycin 265 IVPB 595 110 185 ABX - CEFAZOLIN 185 ABX - PIPERACILLIN 330 ABX - ZOSYN 110 Vancomycin 265 Oral 1720 960 0 580 Output: Urine 1500 1200 250 Other: # Bowel Movements 0 # Voids 0 0 0 ADLs: Meal Record Start: 03/01/19 14: 49 Freq: DAILY@0900,1400,1800 Status: Active Protocol: Created 03/01/19 14:49 System (Rec: 03/01/19 14:49 System MED-M21) Document 03/01/19 18:00 [id number] (Rec: 03/01/19 19:44 [id number] MED-C05) Document 03/02/19 09:00 [id number] (Rec: 03/02/19 10:17 [id number] MED-C11) Document 03/02/19 12:58 [id number] (Rec: 03/02/19 12:59 [id number] MED-C11) Document 03/02/19 18:00 [id number] (Rec: 03/02/19 18:51 [id number] MED-C11) Document 03/03/19 09:00 [id number] (Rec: 03/03/19 13:01 [id number] MED-C11) Document 03/03/19 14:00 [id number] (Rec: 03/03/19 16:07 [id number] MED-C14) Document 03/03/19 18:00 [id number] (Rec: 03/03/19 18:40 [id number] MED-C09) Document 03/04/19 09:00 [id number] (Rec: 03/04/19 09:39 [id number] MED-C09) Document 03/05/19 09:44 [id number] (Rec: 03/05/19 09:44 [id number] MED-C09) Document 03/05/19 14:17 [id number] (Rec: 03/05/19 14:20 [id number] MED-C09) Document 03/05/19 17:56 [id number] (Rec: 03/05/19 17:56 [id number] MED-C09) Intake and Output Start: 03/01/19 14: 49 Freq: DAILY@0600,1400,2200 Status: Active Protocol: Created 03/01/19 14:49 System (Rec: 03/01/19 14:49 System MED-M21) Document 03/01/19 22:00 [id number] (Rec: 03/01/19 22:28 [id number] MED-C05) Document 03/02/19 04:15 [id number] (Rec: 03/02/19 04:15 [id number] MED-C02) Document 03/02/19 14:00 [id number] (Rec: 03/02/19 15:22 [id number] MED-C09) Document 03/02/19 22:00 [id number] (Rec: 03/02/19 22:12 [id number] MED-C11) Document 03/03/19 05:33 [id number] (Rec: 03/03/19 05:33 [id number] MEDL-C01) Document 03/03/19 14:00 [id number] (Rec: 03/03/19 16:07 [id number] MED-C14) Document 03/03/19 22:00 [id number] (Rec: 03/03/19 22:46 [id number] MED-C04) Document 03/04/19 05:54 [id number] (Rec: 03/04/19 05:55 [id number] MED-C04) Document 03/04/19 14:00 [id number] (Rec: 03/04/19 14:59 [id number] MED-C09) Document 03/04/19 22:00 [id number] (Rec: 03/04/19 23:12 [id number] MED-C11) Document 03/05/19 05:39 [id number] (Rec: 03/05/19 05:39 [id number] MED-C11) Document 03/05/19 14:17 [id number] (Rec: 03/05/19 14:20 [id number] MED-C09) Document 03/05/19 21:39 [id number] (Rec: 03/05/19 21:57 [id number] MED-C11) Document 03/06/19 05:53 [id number] (Rec: 03/06/19 05:54 [id number] MED-C11) - Physical Exam General: No Cyanosis, No Anemia, No Jaundice, No Clubbing Lungs and Chest: Yes: Chest Expansion Full, Chest Expansion Symetrica, Percussion Note Resonant. No: Vessicular Breath Sounds - emphysematous, Crackles, Wheezes Heart Rate and Rhythm: Regular JVP: Not Elevated Additional Cardiovascular: Yes: Normal Heart Sounds. No: Heart Murmur, Pedal Edema Abdominal Exam: Yes: Soft. No: Abdominal Tenderness Results - Results Lab Results: Laboratory Results - last 24 hr 03/03/19 03/05/19 03/05/19 05:14 11:57 16:38 POC Glucose (mg/dL) 134 H 124 H C-Peptide ng/ml 2.0 03/06/19 07:48 POC Glucose (mg/dL) 104 H C-Peptide ng/ml Assessment - Problem List Assessment: Patient Problems Left hallux osteomyelitis (Acute) Nausea (Acute) Peripheral neuropathy (Acute) Right hallux osteomyelitis (Acute) Carcinoma of rectum, stage 3 (Chronic) Emphysema lung (Chronic) Fecal incontinence (Chronic) Former smoker (Chronic) History of alcohol abuse (Chronic) Hypercholesterolemia (Chronic) Loose stools (Chronic) Type 2 diabetes mellitus, controlled (Chronic) Plan: Left hallux osteomyelitis (Acute) Right hallux osteomyelitis (Acute) 2 days post amputation. I reviewed Dr. Gonzalez's infectious disease consultation. For 4 - 6 weeks of IV cefazolin. Nausea (Acute) improved Peripheral neuropathy (Acute) this is ongoing Carcinoma of rectum, stage 3 (Chronic) stable Type 2 diabetes mellitus, controlled (Chronic) controlled Unchanged: Emphysema lung (Chronic) stable Fecal incontinence (Chronic) Former smoker (Chronic) History of alcohol abuse (Chronic) Hypercholesterolemia (Chronic) Loose stools (Chronic) I spoke with Leonardo Pizano. He is for discharge as soon as the logistics are ironed out. If insurance won't pay for home antibacterials, he will require hospitalization/SNF for 4 - 6 weeks. I called Viola, his daughter, I bought her up to date.
--- NOTE | 2019-03-06 11:09 | PN ---
Progress Note - Progress Note Date of Service: 03/06/19 SOAP: Subjective: CC: Bilateral 1st toe infections HPI: Mr. Pizano is a 68 yo male with PMH significant for DM2, peripheral neuropathy, rectal cancer s/p chemotherapy and radiation, pancytopenia, and HLD; who presented to the hospital from the wound clinic with concern for bilateral 1st toe infections. Denies fever, chills, nausea, vomiting, or diarrhea. He reports that he is feeling well. Denies pain. He is anxious to get home. Objective: Vital Signs - 8 hr 03/06/19 03/06/19 03/06/19 05:24 07:15 08:59 Temperature 98.8 F Pulse Rate 59 Respiratory 18 20 16 Rate Blood Pressure 114/58 (mmHg) O2 Sat by Pulse 97 Oximetry Physical Exam: General: NAD, sitting up on the side of the bed Neurological: Alert and Oriented x4 HEENT: Moist MM, no thrush Cardiovascular: Heart rate regular Respiratory: Lung sounds clear Abdominal: Bowel sounds; ABD soft, non tender, non distended Skin: No rash. DSG to bilateral feet; clean, dry and intact Laboratory Last Values WBC 7.3 10^3/uL (3.5-10.8) 03/05/19 05:35 RBC 3.39 10^6 /uL (4.18-5.48) L 03/05/19 05:35 Hgb 10.4 g/dL (14.0-18.0) L 03/05/19 05:35 Hct 32 % (42-52) L 03/05/19 05:35 MCV 93 fL (80-94) 03/05/19 05:35 MCH 31 pg (27-31) 03/05/19 05:35 MCHC 33 g/dL (31-36) 03/05/19 05:35 RDW 17 % (10-15) H 03/05/19 05:35 Plt Count 154 10^3/uL (150-450) 03/05/19 05:35 MPV 8.6 fL (7.4-10.4) 03/05/19 05:35 Neut % (Auto) 90.4 % 03/05/19 05:35 Lymph % (Auto) 4.1 % 03/05/19 05:35 [place] % (Auto) 4.7 % 03/05/19 05:35 Eos % (Auto) 0.3 % 03/05/19 05:35 Baso % (Auto) 0.5 % 03/05/19 05:35 Absolute Neuts (auto) 6.6 10^3/ul (1.5-7.7) 03/05/19 05:35 Absolute Lymphs (auto) 0.3 10^3/ul (1.0-4.8) L 03/05/19 05:35 Absolute Monos (auto) 0.3 10^3/ul (0-0.8) 03/05/19 05:35 Absolute Eos (auto) 0.0 10^3/ul (0-0.6) 03/05/19 05:35 Absolute Basos (auto) 0.0 10^3/ul (0-0.2) 03/05/19 05:35 Absolute Nucleated RBC 0.0 10^3/ul 03/05/19 05:35 Nucleated RBC % 0.0 03/05/19 05:35 ESR 52 mm/Hr (0-19) H 03/02/19 10:00 INR (Anticoag Therapy) 1.16 (0.82-1.09) H 03/01/19 15:20 Sodium 141 mmol/L (135-145) 03/05/19 05:35 Potassium 3.7 mmol/L (3.5-5.0) 03/05/19 05:35 Chloride 108 mmol/L (101-111) 03/05/19 05:35 Carbon Dioxide 29 mmol/L (22-32) 03/05/19 05:35 Anion Gap 4 mmol/L (2-11) 03/05/19 05:35 BUN 8 mg/dL (6-24) 03/05/19 05:35 Creatinine 0.64 mg/dL (0.67-1.17) L 03/05/19 05:35 Est GFR ( Amer) 150.9 (>60) 03/05/19 05:35 Est GFR (Non-Af Amer) 124.7 (>60) 03/05/19 05:35 BUN/Creatinine Ratio 12.5 (8-20) 03/05/19 05:35 Glucose 89 mg/dL (70-100) 03/05/19 05:35 POC Glucose (mg/dL) 104 mg/dL (70-100) H 03/06/19 07:48 Hemoglobin A1c 6.0 % (4.0-5.6) H 03/01/19 15:20 Insulin Level 4.8 mcIU/mL (2.0-16.0) 03/03/19 05:14 C-Peptide ng/ml 2.0 ng/mL (1.1 - 4.4) 03/03/19 05:14 Lactic Acid 0.9 mmol/L (0.5-2.0) 03/01/19 15:20 Calcium 7.7 mg/dL (8.6-10.3) L 03/05/19 05:35 Total Bilirubin 0.60 mg/dL (0.2-1.0) 03/05/19 05:35 Direct Bilirubin 0.20 mg/dL (0.03-0.18) H 03/05/19 05:35 Indirect Bilirubin 0.4 mg/dL (0.3-1.0) 03/05/19 05:35 AST 14 U/L (13-39) 03/05/19 05:35 ALT 15 U/L (7-52) 03/05/19 05:35 Alkaline Phosphatase 88 U/L (34-104) 03/05/19 05:35 C-Reactive Protein 15.99 mg/L (<8.01) H 03/02/19 10:00 Total Protein 5.3 g/dL (6.4-8.9) L 03/05/19 05:35 Albumin 2.6 g/dL (3.2-5.2) L 03/05/19 05:35 Globulin 2.7 g/dL (2-4) 03/05/19 05:35 Albumin/Globulin Ratio 1.0 (1-3) 03/05/19 05:35 Vitamin B12 410 pg/mL (180-914) 03/02/19 10:00 Cortisol 12.57 mcg/dL 03/03/19 05:14 Vancomycin Trough 14.6 mcg/mL 03/02/19 16:38 Hep Bs Antigen Nonreactive (Nonreactive) 03/02/19 10:00 Microbiology 03/01/19 16:40 Aerobic Blood Culture - Preliminary Blood Venous No Growth Day 4 Anaerobic Blood Culture - Final 03/01/19 15:20 Aerobic Blood Culture - Preliminary Blood Venous No Growth Day 4 Anaerobic Blood Culture - Preliminary No Growth Day 4 03/01/19 14:53 Gram Stain - Final Toe - Left Big Wound Culture - Final Staphylococcus Aureus Normal [place]net[place] 03/01/19 14:53 Gram Stain - Final Toe - Right Big Wound Culture - Final Staphylococcus Aureus Normal Lynnette Assessment: 1. Bilateral 1st toe acute osteomyelitis. MRIs of bilateral feet with osteomyelitis. Bilateral 1st toe cultures with staph aureus. Blood cultures with no growth to date. No leukocytosis and afebrile. CRP 15.99 at admission. S/ P bilateral 1st toe disarticulation and right 2nd toe PIP disarticulation, POD # 2. Culture and pathology results from the OR pending. 2. DM2 with peripheral neuropathy. 3. Rectal cancer. Last chemotherapy in December 2018. Plan: Discontinue Zosyn and start Ancef 2gm IV Q8H. He will need to have a prolonged course of IV ABX, 4-6 weeks. Day 3 of ABX. Pt already has a powerport in place, no need for a PICC line. Weekly labs while on IV ABX: CBC, CMP, and CRP. Followup with ID outpatient in 1-2 weeks.
[2019-03-06 11:44] VITALS: BP 98/48
--- NOTE | 2019-03-06 13:40 | PN ---
Progress Note - Progress Note Date of Service: 03/06/19 SOAP: Subjective: [] Pt seen at bedside with his daughter present. Denies fever, chills, foot pain. Objective: []en: NAD, nontoxic appearing BL LE: Dressings changed. Incisions are CDI without discharge or erythema. Insensate distally which is baseline. cap refill less than 2 seconds distally. Redressed with xeroform, 4x4, kerlix, luzmaria. Assessment: [] Necrotic infected right second toe, great toe and left great toe. OPERATIVE PROCEDURE: Disarticulation of right and left first MTP joints and right second PIP joint. Plan: []Heel WB BL LE. FU Dr Eddy next week, daughter ( previous ortho [employer]) will change dressing every 2-3 days for wound check and as needed. Cont IV abx per ID- cefazolin to cover MSSA. Anticipate 6 weeks IV abx. Vital Signs Temp 97.2 F 03/06/19 11:15 Pulse 74 03/06/19 11:15 Resp 20 03/06/19 11:15 BP 98/48 03/06/19 11:15 Pulse Ox 99 03/06/19 11:15 Intake & Output 03/05/19 03/06/19 03/06/19 18:59 06:59 18:59 Intake Total 635 170 Output Total 250 Balance 385 170 Intake: IV Fluids 40 Normal saline 40 IVPB 55 130 ABX - CEFAZOLIN 55 130 Oral 580 0 Output: Urine 250 Other: # Voids 0 Laboratory Last Values WBC 7.3 10^3/uL (3.5-10.8) 03/05/19 05:35 RBC 3.39 10^6 /uL (4.18-5.48) L 03/05/19 05:35 Hgb 10.4 g/dL (14.0-18.0) L 03/05/19 05:35 Hct 32 % (42-52) L 03/05/19 05:35 MCV 93 fL (80-94) 03/05/19 05:35 MCH 31 pg (27-31) 03/05/19 05:35 MCHC 33 g/dL (31-36) 03/05/19 05:35 RDW 17 % (10-15) H 03/05/19 05:35 Plt Count 154 10^3/uL (150-450) 03/05/19 05:35 MPV 8.6 fL (7.4-10.4) 03/05/19 05:35 Neut % (Auto) 90.4 % 03/05/19 05:35 Lymph % (Auto) 4.1 % 03/05/19 05:35 [place] % (Auto) 4.7 % 03/05/19 05:35 Eos % (Auto) 0.3 % 03/05/19 05:35 Baso % (Auto) 0.5 % 03/05/19 05:35 Absolute Neuts (auto) 6.6 10^3/ul (1.5-7.7) 03/05/19 05:35 Absolute Lymphs (auto) 0.3 10^3/ul (1.0-4.8) L 03/05/19 05:35 Absolute Monos (auto) 0.3 10^3/ul (0-0.8) 03/05/19 05:35 Absolute Eos (auto) 0.0 10^3/ul (0-0.6) 03/05/19 05:35 Absolute Basos (auto) 0.0 10^3/ul (0-0.2) 03/05/19 05:35 Absolute Nucleated RBC 0.0 10^3/ul 03/05/19 05:35 Nucleated RBC % 0.0 03/05/19 05:35 ESR 52 mm/Hr (0-19) H 03/02/19 10:00 INR (Anticoag Therapy) 1.16 (0.82-1.09) H 03/01/19 15:20 Sodium 141 mmol/L (135-145) 03/05/19 05:35 Potassium 3.7 mmol/L (3.5-5.0) 03/05/19 05:35 Chloride 108 mmol/L (101-111) 03/05/19 05:35 Carbon Dioxide 29 mmol/L (22-32) 03/05/19 05:35 Anion Gap 4 mmol/L (2-11) 03/05/19 05:35 BUN 8 mg/dL (6-24) 03/05/19 05:35 Creatinine 0.64 mg/dL (0.67-1.17) L 03/05/19 05:35 Est GFR ( Amer) 150.9 (>60) 03/05/19 05:35 Est GFR (Non-Af Amer) 124.7 (>60) 03/05/19 05:35 BUN/Creatinine Ratio 12.5 (8-20) 03/05/19 05:35 Glucose 89 mg/dL (70-100) 03/05/19 05:35 POC Glucose (mg/dL) 140 mg/dL (70-100) H 03/06/19 11:49 Hemoglobin A1c 6.0 % (4.0-5.6) H 03/01/19 15:20 Insulin Level 4.8 mcIU/mL (2.0-16.0) 03/03/19 05:14 C-Peptide ng/ml 2.0 ng/mL (1.1 - 4.4) 03/03/19 05:14 Lactic Acid 0.9 mmol/L (0.5-2.0) 03/01/19 15:20 Calcium 7.7 mg/dL (8.6-10.3) L 03/05/19 05:35 Total Bilirubin 0.60 mg/dL (0.2-1.0) 03/05/19 05:35 Direct Bilirubin 0.20 mg/dL (0.03-0.18) H 03/05/19 05:35 Indirect Bilirubin 0.4 mg/dL (0.3-1.0) 03/05/19 05:35 AST 14 U/L (13-39) 03/05/19 05:35 ALT 15 U/L (7-52) 03/05/19 05:35 Alkaline Phosphatase 88 U/L (34-104) 03/05/19 05:35 C-Reactive Protein 15.99 mg/L (<8.01) H 03/02/19 10:00 Total Protein 5.3 g/dL (6.4-8.9) L 03/05/19 05:35 Albumin 2.6 g/dL (3.2-5.2) L 03/05/19 05:35 Globulin 2.7 g/dL (2-4) 03/05/19 05:35 Albumin/Globulin Ratio 1.0 (1-3) 03/05/19 05:35 Whole Bld Vitamin B1 119 nmol/L (70-180) 03/02/19 13:02 Vitamin B12 410 pg/mL (180-914) 03/02/19 10:00 Cortisol 12.57 mcg/dL 03/03/19 05:14 Vancomycin Trough 14.6 mcg/mL 03/02/19 16:38 Hep Bs Antigen Nonreactive (Nonreactive) 03/02/19 10:00
[2019-03-06 17:25] LABS: Albumin 2.1 g/dL (3.4-4.7); Gamma Globulin 0.9 g/dL (0.6-1.6); Total Protein(PEP) 5.2 g/dL (6.3 - 7.9)
--- NOTE | 2019-03-08 11:07 | DS ---
CC: Dr. Trevor Eddy; Dr. Edmundo Gonzalez; Dr. Ne Roberson DISCHARGE SUMMARY: DATE OF ADMISSION: 03/01/19 DATE OF DISCHARGE: 03/06/19 DISCHARGE DIAGNOSES: Osteomyelitis, bilateral halluces. COMORBIDITIES: Nausea; stage 3 carcinoma of the rectum; peripheral neuropathy, severe; type 2 diabetes mellitus; loose stool. SECONDARY DIAGNOSES: 1. Hypercholesterolemia. 2. History of alcohol abuse. 3. Former smoker. 4. Emphysema. PROCEDURES: 03/04/19 disarticulation of right and left first MTP joints and right second PIP joint performed by Dr. Trevor Eddy. DISPOSITION: Home. CONDITION AT DISCHARGE: Stable. HISTORY: Leonardo Pizano is a 68-year-old white male. His presentation is documented in detail in Isabell Villatoro NP's history and physical. Mr. Pizano has a history of rectal carcinoma, for which he received chemotherapy, which was adjuvant in December. He has planned abdominal surgery for a colectomy in March. He has had a long-standing ulceration of the right great toe in the setting of diabetic neuropathy. One month before admission, he also injured his left great toe. At the time of presentation despite seeing wound clinic, both great toes look like they were developing osteomyelitis and hence he was admitted for surgical management. EXAMINATION AT ADMISSION: Right great toe wound, which was opened measuring 4.5 x 2 x 0.1 cm with serosanguineous drainage. Left great toe wound 0.7 x 1 x 0.1 cm with serosanguineous drainage. Both with surrounding erythema and edema. INVESTIGATION: At presentation, white count 7.5, hemoglobin 11.1, hematocrit 33 , platelet count 197, normal differential, percent neutrophils 89%. Chemistry at presentation: Basic metabolic panel was normal aside from a glucose of 162, calcium 7.6, C-reactive protein 15.99, albumin 2.1. Vitamin B12 410. OTHER INVESTIGATIONS DURING HOSPITAL STAY: Cortisol 12.57, vitamin B1 119. SPEP: No monoclonal band. Hepatitis surface antigen negative. IMAGING: MRI left lower extremity: Osteomyelitis distal first phalanx with associated left foot cellulitis, fractures of second through fourth metatarsals. MRI right lower extremity: Osteomyelitis first distal phalanx, possible early involvement of proximal phalanx, associated cellulitis. He was started on vancomycin and Zosyn empirically. Wound cultures grew multiple sensitivity Staph aureus with no resistance pattern. PROCEDURES: 03/04/19, Dr. Trevor Eddy took the patient to the operating room and amputated both left and right distal phalanges and also on the right side, on the left second PIP joint. HOSPITAL COURSE: Consultation: Infectious Diseases consulted on the patient and Dr. Edmundo Gonzalez and Dionna Ng recommended changing him to cefazolin from piperacillin/tazobactam, they recommended 4 to 6 weeks of IV antibiotic treatment. This may be modified if organisms are cultured and sensitivities obtained from the bone samples obtained at amputation. During the hospital stay, Leonardo Pizano had good symptom relief, his diabetes was well controlled. He had some nausea likely because he was withdrawing from some of his opioids. This went away when they were reestablished in a regular fashion. He tolerated the amputation. His distal legs being anesthetic from the peripheral neuropathy. He had no pain from this procedure. On the day of discharge, had no pain, some appetite though his sense of taste is diminished. He had small bowel movements. No respiratory or cardiovascular symptoms. PHYSICAL EXAMINATION: Vital Signs: Temperature 98.8, pulse 59, respirations 20 , blood pressure 114/58, oxygen on room air 97%. He had bandages over both distal feet. I did not examine the wounds. He had no cyanosis, anemia, jaundice, clubbing, or lymphadenopathy. Cardiovascular system: Pulse was regular, normal character and volume. Heart sounds were normal. No added sounds. No murmurs. No pedal edema. Respiratory system: His chest was overexpanded. He is hyperresonant to percussion and he has emphysematous breath sounds. Abdomen: No distention, masses, tenderness or organomegaly. He is alert and oriented x3, conversational, normal affect. No focal neurological deficits. ASSESSMENT AND PLAN: 1. Osteomyelitis of both distal halluces. He has undergone bilateral amputations of the affected distal phalanges. He will receive IV cefazolin as an outpatient for 4 to 6 weeks as per Infectious Diseases. He is able to weight bear using his heels. 2. Stage 3 carcinoma of the rectum. He has planned surgery next month. Infectious Diseases will need to determine whether the surgery is safe given his foot infections. 3. Type 2 diabetes mellitus. This is tightly controlled on diet. 4. Peripheral neuropathy. This preceded his type 2 diabetes diagnosis by more than a decade. The underlying cause is not clear. I have performed some preliminary results, which were all negative ruling out myeloma, B12 deficiency , B1 deficiency. It is possible that this is due to his long-standing heavy consumption of alcohol. 5. Emphysema. He has physical signs of emphysema and this is confirmed on previous chest x-rays. He is asymptomatic. He is a former smoker. 6. Hypercholesterolemia. Continue current medication. DISCHARGE MEDICATIONS: 1. Cefazolin 2 g IV every 8 hours through his infusion port. 2. Atorvastatin 20 mg q.h.s. 3. Loperamide 2 mg q.6 hours p.r.n. for diarrhea. 4. Oxycodone 5 mg q.i.d. scheduled. 5. Cyclobenzaprine 10 mg t.i.d. as needed. 6. Tramadol 50 mg 3 times a day as needed for mild pain. He will return to my office for a transition of care visit. He will follow up with Dr. Trevor Eddy from Orthopedics. He will follow up with Dr. Edmundo Gonzalez for Infectious Diseases and he will follow up with Dr. Ne Roberson , his Oncology. [id number]/[facility] #: [id number] [facility]
== END 2019-03-06 14:30 | disposition home health service (06) | DRG 617 ==
LOC: MED 14:34
PROVIDERS: ADMIT Hospitalist; ATTEND Internal Medicine
PROC: 0Y6Q0Z0 Detachment at Left 1st Toe, Complete, Open Approach (ICD-10-PCS; principal; 2019-03-05)
PROC: 0Y6P0Z0 Detachment at Right 1st Toe, Complete, Open Approach (ICD-10-PCS; 2019-03-05)
PROC: 0Y6R0Z1 Detachment at Right 2nd Toe, High, Open Approach (ICD-10-PCS; 2019-03-05)
DX: E11.69 Type 2 diabetes mellitus with other specified complication (principal); C20 Malignant neoplasm of rectum; M86.9 Osteomyelitis, unspecified; E11.42 Type 2 diabetes mellitus with diabetic polyneuropathy; E11.621 Type 2 diabetes mellitus with foot ulcer; L97.519 Non-pressure chronic ulcer of other part of right foot with unspecified severity; E78.5 Hyperlipidemia, unspecified; R11.0 Nausea; J43.9 Emphysema, unspecified; E78.00 Pure hypercholesterolemia, unspecified; B95.61 Methicillin susceptible Staphylococcus aureus infection as the cause of diseases classified elsewhere; L03.031 Cellulitis of right toe; L97.513 Non-pressure chronic ulcer of other part of right foot with necrosis of muscle; Z92.21 Personal history of antineoplastic chemotherapy; Z92.3 Personal history of irradiation; Z98.49 Cataract extraction status, unspecified eye; Z87.891 Personal history of nicotine dependence; Z79.899 Other long term (current) drug therapy
CPT/HCPCS: 36415; 80048; 80053; 80076; 80202; 82533; 82607; 83036; 83525; 83605; 84155; 84165; 84425; 84681; 85025; 85610; 85652; 86140; 87040; 87070; 87077; 87186; 87205; 87340; 88305; 88311; 90715; 93005; A9270-GY; J0690; J1642; J1644; J2001; J2270; J2405; J2543; J2704; J3370

== ENCOUNTER 2019-06-13 05:54 | Day surgery (SDC) | payer MEDICARE, BC ==
[~2019-06-13 05:54] MED LIST changes: -Acetaminophen TAB* 325 MG PO PRN; +Buffered Lidocaine 1% SYRIN 1 ml INTRADERM ONE; -Buffered Lidocaine 1% SYRIN* 1 ML/SYRINGE INTRADERM ONE; -Famotidine IV* 10 MG/ML 2 ML (20 mg) IV ONE; -Famotidine IV* 10 MG/ML 2 ML (20 mg) ONE; -Ketorolac INJ* 30 MG/ML 1 ML VIAL ONE; -Lactated Ringers 1000 ML Bag* 1,000 ML IV SCH; -Lidocaine 1% w EPI 1:100,000* MDV 20 ML VIAL ONE; -Lidocaine 2% PF * 5 ML VIAL ONE; -Midazolam* 1 MG/ML 5 ML VIAL (5 MG) ONE; -Naloxone* 0.4 MG/ML 1 ML VIAL IV PRN; -Ondansetron INJ* 2 MG/ML VIAL ONE; -Propofol* 10 MG/ML 20 ML BTL ONE; -ceFAZolin 2 GM in NS PREMIX(*) 2 GM/100 ML BAG IVPB ONE; -fentaNYL* 50 MCG/ML 2 ML VIAL (100 MCG VIAL) ONE
[2019-06-13] MEDS ORDERED: Lactated Ringers 1000 ml BAG 1,000 ML IV SCH (06:00)
[2019-06-13] MEDS ORDERED: ceFAZolin 2 GM PREMIX in ORs 2 GM/50 ML BAG ONE (06:12)
[2019-06-13] MEDS ORDERED: Bupivacaine 0.5% 50 ML MDV VIAL ONE (07:13)
[2019-06-13] MEDS ORDERED: Midazolam 2 mg/2 ml VIAL 1 mg/ml 2 ml VIAL (2 mg) ONE (07:24)
[2019-06-13] MEDS ORDERED: Propofol 10 MG/ML 20 ML BTL ONE ×2 (07:26→07:37)
[2019-06-13] MEDS ORDERED: Lidocaine 2% PF 5 ML VIAL ONE (07:26)
[2019-06-13] MEDS ORDERED: fentaNYL 100 mcg/2 ml 50 MCG/ML VIAL IV PRN (08:08)
[2019-06-13] MEDS ORDERED: Naloxone 0.4 mg VIAL 0.4 mg/ml 1 ml VIAL IV PRN (08:08)
[2019-06-13] MEDS ORDERED: Ondansetron 4 mg VIAL 2 MG/ML 2 ml VIAL IV PRN (08:08)
[2019-06-13 09:25] VITALS: BP 114/67
== END 2019-06-13 09:25 | disposition home or self-care (01) ==
LOC: OR 05:54
PROVIDERS: ATTEND Orthopaedic Surgery

== ENCOUNTER 2020-12-30 09:16 | Inpatient (IN) ==
[2020-12-30] MEDS ORDERED: Diazepam INJ CARPUJECT 5 MG/ML IV ONE (09:36)
[2020-12-30 10:57] LABS: ABS Lymphocytes 0.1 10^3/ul (1.0-4.8); ABS Monocytes 0.4 10^3/ul (0-0.8); ABS Neutrophils 4.1 10^3/ul (1.5-7.7); Eosinophil % 0.3 %; Hematocrit 37 % (42-52); Hemoglobin 12.4 g/dL (14.0-18.0); Lymphocyte % 2.7 %; Mean Corpuscular HGB Conc 34 g/dL (31-36); Mean Corpuscular Hemoglobin 37 pg (27-31); Mean Corpuscular Volume 108 fL (80-94); Mean Platelet Volume 10.1 fL (7.4-10.4); Platelet Count 66 10^3/uL (150-450); Red Blood Count 3.39 10^6 /uL (4.18-5.48); Red Cell Distribution Width 15 % (10-15); White Blood Count 4.7 10^3/uL (3.5-10.8)
[2020-12-30] MEDS ORDERED: oxyCODONE SR 10 mg TAB PO ONE (11:00)
[2020-12-30 11:10] LABS: Albumin 3.4 g/dL (3.2-5.2); Albumin/Globulin Ratio 1.5 (1-3); Calcium 8.2 mg/dL (8.6-10.3); Globulin 2.2 g/dL (2-4); Potassium 3.2 mmol/L (3.5-5.0); Total Bilirubin 1.6 mg/dL (0.2-1.0); Total Protein 5.6 g/dL (6.4-8.9)
[2020-12-30] MEDS ORDERED: Lactated Ringers 1000 ml BAG 1,000 ML IV ONE (11:21)
[2020-12-30] MEDS ORDERED: Enoxaparin 40 MG/0.4 ML SYR SUBCUT SCH (12:00)
[2020-12-30 12:21] LABS: Rapid COVID-19 Molecular Undetected (Undetected)
[2020-12-30] MEDS: KCL 20 MEQ/100 ML IVPREMIX 20 MEQ/100 ML BAG IV SCH ×2 (13:37→17:23)
[2020-12-30] MEDS ORDERED: Gadoteridol (CONTRAST) 279.3 MG/ML 10 ML IV ONE (15:06)
[2020-12-30] MEDS: HYDROmorphone 0.5 MG/0.5 ML SYRINGE IV SLOW PU PRN (20:45)
[2020-12-31 05:09] LABS: Calcium 8.1 mg/dL (8.6-10.3); Potassium 3.6 mmol/L (3.5-5.0)
[2020-12-31 05:29] LABS: ABS Eosinophils 0.1 10^3/ul (0-0.6); ABS Lymphocytes 0.2 10^3/ul (1.0-4.8); ABS Monocytes 0.5 10^3/ul (0-0.8); ABS Neutrophils 2.5 10^3/ul (1.5-7.7); Eosinophil % 1.9 %; Hematocrit 36 % (42-52); Lymphocyte % 6.9 %; Mean Corpuscular HGB Conc 34 g/dL (31-36); Mean Corpuscular Hemoglobin 36 pg (27-31); Mean Corpuscular Volume 108 fL (80-94); Mean Platelet Volume 8.9 fL (7.4-10.4); Nucleated Red Blood Cells % 0.1; Platelet Count 59 10^3/uL (150-450); Red Blood Count 3.32 10^6 /uL (4.18-5.48); Red Cell Distribution Width 15 % (10-15); White Blood Count 3.3 10^3/uL (3.5-10.8)
[2020-12-31] MEDS ORDERED: Potassium Chlor 20 meq TAB.ER PO ONE (07:26)
[2020-12-31] MEDS: HYDROmorphone 0.5 MG/0.5 ML SYRINGE IV SLOW PU PRN (07:41)
[2020-12-31] MEDS: Potassium Chlor 20 meq TAB.ER PO SCH (07:46)
[2020-12-31] MEDS: Enoxaparin 30 MG/0.3 ML SYR SUBCUT SCH (11:15)
[2020-12-31] MEDS ORDERED: Enoxaparin 40 MG/0.4 ML SYR SUBCUT SCH (12:00)
[2021-01-01 06:15] LABS: Hematocrit 36 % (42-52); Hemoglobin 12.4 g/dL (14.0-18.0); Mean Corpuscular HGB Conc 34 g/dL (31-36); Mean Corpuscular Hemoglobin 37 pg (27-31); Mean Corpuscular Volume 108 fL (80-94); Mean Platelet Volume 10.9 fL (7.4-10.4); Platelet Count 73 10^3/uL (150-450); Red Blood Count 3.37 10^6 /uL (4.18-5.48); Red Cell Distribution Width 16 % (10-15); White Blood Count 2.9 10^3/uL (3.5-10.8)
[2021-01-01 06:23] LABS: Calcium 8.2 mg/dL (8.6-10.3); Potassium 4.1 mmol/L (3.5-5.0)
[2021-01-01] MEDS ORDERED: Lactated Ringers 500 ml BAG 500 ML IV ONE (09:49)
[2021-01-01] MEDS: Potassium Chlor 20 meq TAB.ER PO SCH (09:56)
[2021-01-01] MEDS: HYDROmorphone 0.5 MG/0.5 ML SYRINGE IV SLOW PU PRN (11:21)
[2021-01-01] MEDS: Enoxaparin 30 MG/0.3 ML SYR SUBCUT SCH (13:47)
[2021-01-02] MEDS: Potassium Chlor 20 meq TAB.ER PO SCH (09:06)
[2021-01-02] MEDS: Al Hydrox/Mg Hydrox/Simet LIQ 30 ML UDC PO PRN ×2 (09:13→17:19)
[2021-01-02] MEDS: Enoxaparin 30 MG/0.3 ML SYR SUBCUT SCH (12:35)
[2021-01-02 13:26] LABS: Phosphorus 2.3 mg/dL (2.5-5.0)
[2021-01-02] MEDS ORDERED: Iodixanol (CONTRAST) 320 MG/ML 100 ML SDV IV ONE (15:48)
[2021-01-03 06:00] LABS: ABS Lymphocytes 0.1 10^3/ul (1.0-4.8); ABS Monocytes 0.5 10^3/ul (0-0.8); ABS Neutrophils 4.7 10^3/ul (1.5-7.7); Hematocrit 40 % (42-52); Hemoglobin 13.3 g/dL (14.0-18.0); Lymphocyte % 2.3 %; Mean Corpuscular HGB Conc 34 g/dL (31-36); Mean Corpuscular Hemoglobin 37 pg (27-31); Mean Corpuscular Volume 109 fL (80-94); Mean Platelet Volume 10.9 fL (7.4-10.4); Nucleated Red Blood Cells % 0.1; Platelet Count 106 10^3/uL (150-450); Red Blood Count 3.62 10^6 /uL (4.18-5.48); Red Cell Distribution Width 15 % (10-15); White Blood Count 5.4 10^3/uL (3.5-10.8)
[2021-01-03 06:03] LABS: Magnesium 2.2 mg/dL (1.9-2.7); Phosphorus 1.4 mg/dL (2.5-5.0)
[2021-01-03] MEDS: Al Hydrox/Mg Hydrox/Simet LIQ 30 ML UDC PO PRN (08:14)
[2021-01-03] MEDS ORDERED: Metoclopramide 5 MG/ML VIAL (10 mg) IV ONE (11:04)
[2021-01-03] MEDS ORDERED: Metoclopramide 5 MG/ML VIAL (10 mg) ONE (11:06)
[2021-01-03] MEDS ORDERED: Ondansetron 4 mg VIAL 2 MG/ML 2 ml VIAL IV PRN (11:12)
[2021-01-03] MEDS: Enoxaparin 30 MG/0.3 ML SYR SUBCUT SCH (12:26)
[2021-01-03 12:38] LABS: TSH Ultra Thyroid Stim Horm 0.51 mcIU/mL (0.34-5.60)
[2021-01-03 12:46] LABS: Ferritin 384.4 ng/mL (24-336)
[2021-01-03 12:49] LABS: Folate 13.52 ng/mL (5.90-24.80)
[2021-01-03] MEDS: Potassium Chlor 20 meq TAB.ER PO SCH (14:18)
[2021-01-03] MEDS: Potassium & Sodium Phos 250 mg = 1 PACKET PO SCH ×2 (15:54→22:42)
[2021-01-04 05:59] LABS: Albumin 3.1 g/dL (3.2-5.2); Albumin/Globulin Ratio 1.5 (1-3); Calcium 8.3 mg/dL (8.6-10.3); Direct Bilirubin 0.3 mg/dL (0.03-0.18); Globulin 2.1 g/dL (2-4); Indirect Bilirubin 0.8 mg/dL (0.3-1.0); Magnesium 2.2 mg/dL (1.9-2.7); Potassium 4.4 mmol/L (3.5-5.0); Total Bilirubin 1.1 mg/dL (0.2-1.0); Total Protein 5.2 g/dL (6.4-8.9)
[2021-01-04 06:04] LABS: Hematocrit 34 % (42-52); Hemoglobin 11.7 g/dL (14.0-18.0); Mean Corpuscular HGB Conc 34 g/dL (31-36); Mean Corpuscular Hemoglobin 37 pg (27-31); Mean Corpuscular Volume 109 fL (80-94); Mean Platelet Volume 10.2 fL (7.4-10.4); Platelet Count 96 10^3/uL (150-450); Red Blood Count 3.18 10^6 /uL (4.18-5.48); Red Cell Distribution Width 15 % (10-15); White Blood Count 4.8 10^3/uL (3.5-10.8)
[2021-01-04] MEDS: Potassium Chlor 20 meq TAB.ER PO SCH (07:59)
[2021-01-04] MEDS: Potassium & Sodium Phos 250 mg = 1 PACKET PO SCH ×3 (07:59→20:42)
[2021-01-04] MEDS: Enoxaparin 30 MG/0.3 ML SYR SUBCUT SCH (11:36)
[2021-01-05 06:05] LABS: Hematocrit 31 % (42-52); Hemoglobin 10.5 g/dL (14.0-18.0); Mean Corpuscular HGB Conc 34 g/dL (31-36); Mean Corpuscular Hemoglobin 37 pg (27-31); Mean Corpuscular Volume 108 fL (80-94); Mean Platelet Volume 9.7 fL (7.4-10.4); Platelet Count 87 10^3/uL (150-450); Red Blood Count 2.88 10^6 /uL (4.18-5.48); Red Cell Distribution Width 16 % (10-15); White Blood Count 4.8 10^3/uL (3.5-10.8)
[2021-01-05 06:21] LABS: Calcium 7.9 mg/dL (8.6-10.3); Phosphorus 3.1 mg/dL (2.5-5.0); Potassium 3.7 mmol/L (3.5-5.0)
[2021-01-05] MEDS ORDERED: Potassium Chlor 20 meq TAB.ER PO ONE (06:36)
[2021-01-05] MEDS: Potassium Chlor 20 meq TAB.ER PO SCH (08:17)
[2021-01-05] MEDS: Potassium & Sodium Phos 250 mg = 1 PACKET PO SCH ×3 (08:18→22:39)
[2021-01-05] MEDS: Enoxaparin 30 MG/0.3 ML SYR SUBCUT SCH (12:00)
[2021-01-05 12:37] LABS: Calcium (PTH Intact) 7.8 mg/dL (8.6-10.3)
[2021-01-05] MEDS ORDERED: CHOLECALCIFEROL 50000 UNIT PO SCH (17:00)
[2021-01-06 05:49] LABS: Hematocrit 30 % (42-52); Hemoglobin 10.2 g/dL (14.0-18.0); Mean Corpuscular HGB Conc 34 g/dL (31-36); Mean Corpuscular Hemoglobin 36 pg (27-31); Mean Corpuscular Volume 107 fL (80-94); Mean Platelet Volume 10.2 fL (7.4-10.4); Platelet Count 90 10^3/uL (150-450); Red Blood Count 2.81 10^6 /uL (4.18-5.48); Red Cell Distribution Width 16 % (10-15); White Blood Count 3.5 10^3/uL (3.5-10.8)
[2021-01-06 06:06] LABS: Calcium 7.6 mg/dL (8.6-10.3); Phosphorus 3.7 mg/dL (2.5-5.0); Potassium 3.9 mmol/L (3.5-5.0); eGFR CKD-EPI 101.1 (>60)
[2021-01-06] MEDS: Potassium Chlor 20 meq TAB.ER PO SCH (09:10)
[2021-01-06] MEDS: Potassium & Sodium Phos 250 mg = 1 PACKET PO SCH (09:10)
[2021-01-06] MEDS: Enoxaparin 30 MG/0.3 ML SYR SUBCUT SCH (13:15)
[2021-01-06 15:52] VITALS: BP 105/51
== END 2021-01-06 16:45 | disposition swing bed (61) | DRG 543 ==
LOC: EDHOLD 09:16 → ED 09:16 → SUATTDRO 10:55 → SSU 12:08 → SUATTDRO 01-01 16:00
PROVIDERS: ADMIT Internal Medicine; ATTEND Internal Medicine

== ENCOUNTER 2021-01-06 16:44 | Inpatient (IN) ==
[2021-01-06] MEDS ORDERED: Enoxaparin 40 MG/0.4 ML SYR SUBCUT SCH (18:00)
[2021-01-06] MEDS ORDERED: NON FORMULARY MED (Acetaminophen [Tylenol Extra Strength] 500 mg Tablet) PO PRN (19:18)
[2021-01-06] MEDS: HYDROCODONE PO SCH (21:22)
[2021-01-06] MEDS: ACETAMIN PO SCH (21:22)
[2021-01-07] MEDS: HYDROCODONE PO SCH ×4 (03:07→21:27)
[2021-01-07] MEDS: ACETAMIN PO SCH ×4 (03:07→21:27)
[2021-01-07 06:01] LABS: Albumin 2.7 g/dL (3.2-5.2); Albumin/Globulin Ratio 1.4 (1-3); Calcium 7.7 mg/dL (8.6-10.3); Potassium 3.8 mmol/L (3.5-5.0); Total Bilirubin 0.9 mg/dL (0.2-1.0); Total Protein 4.7 g/dL (6.4-8.9)
[2021-01-07] MEDS: Potassium Chlor 20 meq TAB.ER PO SCH (09:29)
[2021-01-07] MEDS: Enoxaparin 40 MG/0.4 ML SYR SUBCUT SCH (11:31)
[2021-01-08] MEDS: ACETAMIN PO SCH ×5 (04:19→21:26)
[2021-01-08] MEDS: HYDROCODONE PO SCH ×5 (04:19→21:26)
[2021-01-08] MEDS: Potassium Chlor 20 meq TAB.ER PO SCH (08:25)
[2021-01-08] MEDS: Enoxaparin 40 MG/0.4 ML SYR SUBCUT SCH (11:52)
[2021-01-09] MEDS: ACETAMIN PO SCH ×4 (02:51→20:51)
[2021-01-09] MEDS: HYDROCODONE PO SCH ×4 (02:51→20:51)
[2021-01-09] MEDS: Potassium Chlor 20 meq TAB.ER PO SCH (08:22)
[2021-01-09] MEDS: Enoxaparin 40 MG/0.4 ML SYR SUBCUT SCH (12:30)
[2021-01-10] MEDS: HYDROCODONE PO SCH ×4 (03:06→20:09)
[2021-01-10] MEDS: ACETAMIN PO SCH ×4 (03:06→20:09)
[2021-01-10] MEDS: Potassium Chlor 20 meq TAB.ER PO SCH (07:50)
[2021-01-10] MEDS: Enoxaparin 40 MG/0.4 ML SYR SUBCUT SCH (12:05)
[2021-01-11] MEDS: HYDROCODONE PO SCH ×4 (04:08→21:22)
[2021-01-11] MEDS: ACETAMIN PO SCH ×4 (04:08→21:22)
[2021-01-11] MEDS: Potassium Chlor 20 meq TAB.ER PO SCH (08:35)
[2021-01-11] MEDS: Enoxaparin 40 MG/0.4 ML SYR SUBCUT SCH (12:32)
[2021-01-12] MEDS: ACETAMIN PO SCH ×4 (03:21→20:54)
[2021-01-12] MEDS: HYDROCODONE PO SCH ×4 (03:21→20:54)
[2021-01-12] MEDS: Potassium Chlor 20 meq TAB.ER PO SCH (08:28)
[2021-01-12] MEDS ORDERED: CHOLECALCIFEROL 50000 UNIT PO SCH (09:00)
[2021-01-12] MEDS: Enoxaparin 40 MG/0.4 ML SYR SUBCUT SCH (11:32)
[2021-01-13] MEDS: HYDROCODONE PO SCH ×4 (02:54→20:49)
[2021-01-13] MEDS: ACETAMIN PO SCH ×4 (02:54→20:49)
[2021-01-13] MEDS: Potassium Chlor 20 meq TAB.ER PO SCH (08:31)
[2021-01-13 10:31] LABS: Hematocrit 32 % (42-52); Hemoglobin 10.5 g/dL (14.0-18.0); Mean Corpuscular HGB Conc 33 g/dL (31-36); Mean Corpuscular Hemoglobin 35 pg (27-31); Mean Corpuscular Volume 106 fL (80-94); Red Cell Distribution Width 16 % (10-15); White Blood Count 2.9 10^3/uL (3.5-10.8)
[2021-01-13 10:51] LABS: Albumin 2.6 g/dL (3.2-5.2); Albumin/Globulin Ratio 1.1 (1-3); Globulin 2.4 g/dL (2-4); Potassium 3.9 mmol/L (3.5-5.0); Total Bilirubin 0.7 mg/dL (0.2-1.0); eGFR CKD-EPI 101.1 (>60)
[2021-01-13 11:04] LABS: ABS Lymphocytes 0.2 10^3/ul (1.0-4.8); ABS Monocytes 0.1 10^3/ul (0-0.8); ABS Neutrophils 2.6 10^3/ul (1.5-7.7); Eosinophil % 0.6 %; Lymphocyte % 5.3 %; Mean Platelet Volume 10.1 fL (7.4-10.4); Nucleated Red Blood Cells % 0.1; Platelet Count 65 10^3/uL (150-450)
[2021-01-13] MEDS: Enoxaparin 40 MG/0.4 ML SYR SUBCUT SCH (12:36)
[2021-01-13 16:05] LABS: Calcium 7.7 mg/dL (8.6-10.3); eGFR CKD-EPI 98.5 (>60)
[2021-01-13 16:59] LABS: Magnesium 1.9 mg/dL (1.9-2.7)
[2021-01-13 17:31] LABS: TSH Ultra Thyroid Stim Horm 1.7 mcIU/mL (0.34-5.60)
[2021-01-14] MEDS: ACETAMIN PO SCH ×4 (03:13→20:04)
[2021-01-14] MEDS: HYDROCODONE PO SCH ×4 (03:13→20:04)
[2021-01-14] MEDS: Potassium Chlor 20 meq TAB.ER PO SCH (08:33)
[2021-01-14] MEDS: Enoxaparin 40 MG/0.4 ML SYR SUBCUT SCH (11:44)
[2021-01-15] MEDS: HYDROCODONE PO SCH ×4 (03:23→21:45)
[2021-01-15] MEDS: ACETAMIN PO SCH ×4 (03:23→21:45)
[2021-01-15] MEDS: Potassium Chlor 20 meq TAB.ER PO SCH (08:57)
[2021-01-15] MEDS: Enoxaparin 40 MG/0.4 ML SYR SUBCUT SCH (13:10)
[2021-01-16] MEDS: HYDROCODONE PO SCH ×4 (03:23→21:27)
[2021-01-16] MEDS: ACETAMIN PO SCH ×4 (03:23→21:27)
[2021-01-16] MEDS: Potassium Chlor 20 meq TAB.ER PO SCH (09:44)
[2021-01-16] MEDS: Enoxaparin 40 MG/0.4 ML SYR SUBCUT SCH (12:37)
[2021-01-17] MEDS: ACETAMIN PO SCH ×4 (04:00→20:17)
[2021-01-17] MEDS: HYDROCODONE PO SCH ×4 (04:00→20:17)
[2021-01-17] MEDS: Potassium Chlor 20 meq TAB.ER PO SCH (07:51)
[2021-01-17] MEDS: Enoxaparin 40 MG/0.4 ML SYR SUBCUT SCH (12:59)
[2021-01-18] MEDS: HYDROCODONE PO SCH ×3 (03:18→15:10)
[2021-01-18] MEDS: ACETAMIN PO SCH ×3 (03:18→15:10)
[2021-01-18 07:42] VITALS: BP 100/52
[2021-01-18] MEDS: Potassium Chlor 20 meq TAB.ER PO SCH (08:08)
[2021-01-18] MEDS: Enoxaparin 40 MG/0.4 ML SYR SUBCUT SCH (11:53)
== END 2021-01-18 15:20 | disposition home or self-care (01) | DRG 543 ==
LOC: SUATTDRO 16:46 → SSU 16:46
PROVIDERS: ADMIT Internal Medicine; ATTEND Internal Medicine

== ENCOUNTER 2023-01-26 10:44 | Inpatient (IN) ==
[2023-01-26] MEDS ORDERED: Ondansetron 4 mg VIAL 2 MG/ML 2 ml VIAL IV ONE (16:19)
[2023-01-26] MEDS: Lactated Ringers 1000 ml BAG 1,000 ML IV SCH ×3 (16:28→23:36)
[2023-01-26 16:52] LABS: Hematocrit 40.9 % (38-53); Hemoglobin 13.5 g/dL (13.2-16.3); Mean Corpuscular Hemoglobin 29.3 pg (27-33); Mean Corpuscular Hgb Conc 33.1 g/dL (31-36); Mean Corpuscular Volume 88.5 fL (80-97); Red Blood Count 4.62 10^6/uL (4.06-5.63); Red Cell Distribution Width 16.7 % (12-17); White Blood Count 5.7 10^3/uL (3.6-10.2)
[2023-01-26 17:12] LABS: Albumin 3.9 g/dL (3.2-5.2); Albumin/Globulin Ratio 1.5 (1-3); C Reactive Protein 19.44 mg/L (<8.01); Calcium 8.5 mg/dL (8.6-10.3); Creatinine, Serum 0.77 mg/dL (0.67-1.17); Globulin 2.6 g/dL (2-4); Potassium 3.6 mmol/L (3.5-5.0); Total Bilirubin 0.9 mg/dL (0.2-1.0); Total Protein 6.5 g/dL (6.4-8.9); eGFR CKD-EPI 95.7 (>60)
[2023-01-26 17:27] LABS: Urine Appearance Clear; Urine Bilirubin Negative (Negative); Urine Blood 2+ (Negative); Urine Color Amber; Urine Glucose Negative (Negative); Urine Ketones 2+ (Negative); Urine Nitrite Negative (Negative); Urine Protein 1+(30 mg/dL) (Negative); Urine Specific Gravity 1.026 (1.002-1.030); Urine Urobilinogen Negative (Negative)
[2023-01-26 17:33] LABS: ABS Lymphocytes 0.1 10^3/uL (1.0-4.8); ABS Monocytes 0.3 10^3/uL (0.0-1.1); ABS Neutrophils 5.3 10^3/uL (1.5-7.6); Lymphocyte % 1.9 %; Mean Platelet Volume 10.4 fL (7.5-11.2); Nucleated Red Blood Cells % 0.1 %/100WBC (0.0-0.8); Platelet Count 84 10^3/uL (150-450)
[2023-01-26 17:38] LABS: Urine Bacteria Absent (Absent); Urine Red Blood Cell 3+(>10/hpf) (Absent); Urine Squamous Epithelial Cell Present (Absent); Urine White Blood Cell Trace(0-5/hpf) (Absent)
[2023-01-26] MEDS ORDERED: Iodixanol (CONTRAST) 320 MG/ML 100 ML SDV IV ONE (18:08)
[2023-01-26] MEDS ORDERED: Acetaminophen IV 1 GM/100ML 1,000 MG/100 ML BAG IV ONE (19:21)
[2023-01-26] MEDS ORDERED: guaiFENesin 100 mg/5 ml LIQ unit dose cup PO PRN (21:54)
[2023-01-26] MEDS ORDERED: Lactated Ringers 1000 ml BAG 1,000 ML IV ONE (21:57)
[2023-01-26] MEDS: Ondansetron 4 mg VIAL 2 MG/ML 2 ml VIAL IV PRN (22:02)
[2023-01-26] MEDS ORDERED: KCL 20 MEQ/100 ML IVPREMIX 20 MEQ/100 ML BAG IV ONE (22:05)
[2023-01-26 22:07] LABS: Magnesium 1.7 mg/dL (1.9-2.7)
[2023-01-26] MEDS ORDERED: Prochlorperazine 5 mg/ml 2 ml VIAL (10 mg) IM PRN (22:51)
[2023-01-26] MEDS: Morphine 4 MG/ML VIAL (1 ml) IV PRN (23:37)
[2023-01-26] MEDS: Pantoprazole VIAL 40 MG VIAL IV SCH (23:38)
[2023-01-27] MEDS ORDERED: Magnesium Sulfate IV 1GM/100ML 1 GM/100 ML BAG IV ONE (00:35)
[2023-01-27] MEDS: Morphine 4 MG/ML VIAL (1 ml) IV PRN ×3 (05:48→20:28)
[2023-01-27] MEDS: Enoxaparin 40 MG/0.4 ML SYR SUBCUT SCH (05:50)
[2023-01-27 06:25] LABS: Calcium 8.3 mg/dL (8.6-10.3); Creatinine, Serum 0.84 mg/dL (0.67-1.17); Magnesium 1.9 mg/dL (1.9-2.7); Potassium 3.7 mmol/L (3.5-5.0); eGFR CKD-EPI 93.2 (>60)
[2023-01-27] MEDS ORDERED: Prochlorperazine 5 mg/ml 2 ml VIAL (10 mg) IV PRN (06:34)
[2023-01-27] MEDS: Pantoprazole VIAL 40 MG VIAL IV SCH (10:06)
[2023-01-27] MEDS: Lactated Ringers 1000 ml BAG 1,000 ML IV SCH ×2 (10:06→20:09)
[2023-01-27] MEDS: Aspirin EC 81 mg TAB.EC (enteric coated) PO SCH (10:06)
[2023-01-27] MEDS: Ondansetron 4 mg VIAL 2 MG/ML 2 ml VIAL IV PRN (14:25)
[2023-01-27] MEDS ORDERED: Iodixanol (CONTRAST) 320 MG/ML 100 ML SDV IV ONE (17:20)
[2023-01-28] MEDS: Enoxaparin 40 MG/0.4 ML SYR SUBCUT SCH (05:24)
[2023-01-28 07:34] LABS: Calcium 7.8 mg/dL (8.6-10.3); Creatinine, Serum 0.8 mg/dL (0.67-1.17); Magnesium 1.7 mg/dL (1.9-2.7); Potassium 3.5 mmol/L (3.5-5.0); eGFR CKD-EPI 94.6 (>60)
[2023-01-28 07:52] LABS: ABS Eosinophils 0.1 10^3/uL (0.0-0.5); ABS Lymphocytes 0.2 10^3/uL (1.0-4.8); ABS Monocytes 0.3 10^3/uL (0.0-1.1); ABS Neutrophils 2.1 10^3/uL (1.5-7.6); Eosinophil % 2.2 %; Hematocrit 36.6 % (38-53); Lymphocyte % 6.8 %; Mean Corpuscular Hemoglobin 29.2 pg (27-33); Mean Corpuscular Hgb Conc 32.7 g/dL (31-36); Mean Corpuscular Volume 89.1 fL (80-97); Mean Platelet Volume 10.9 fL (7.5-11.2); Nucleated Red Blood Cells % 0.2 %/100WBC (0.0-0.8); Platelet Count 75 10^3/uL (150-450); Red Cell Distribution Width 16.4 % (12-17); White Blood Count 2.6 10^3/uL (3.6-10.2)
[2023-01-28] MEDS: Morphine 4 MG/ML VIAL (1 ml) IV PRN (08:21)
[2023-01-28] MEDS: Aspirin EC 81 mg TAB.EC (enteric coated) PO SCH (08:21)
[2023-01-28] MEDS: Pantoprazole VIAL 40 MG VIAL IV SCH (08:21)
[2023-01-28] MEDS ORDERED: Dextrose 50% Syringe 50 ml 25 GM/50 ML SYRINGE IV PUSH PRN (20:36)
[2023-01-29] MEDS: Enoxaparin 40 MG/0.4 ML SYR SUBCUT SCH (05:06)
[2023-01-29 06:04] LABS: C Reactive Protein 30.74 mg/L (<8.01); Calcium 8.1 mg/dL (8.6-10.3); Creatinine, Serum 0.85 mg/dL (0.67-1.17); Magnesium 1.9 mg/dL (1.9-2.7); Potassium 3.4 mmol/L (3.5-5.0); eGFR CKD-EPI 92.9 (>60)
[2023-01-29 06:08] LABS: ABS Eosinophils 0.1 10^3/uL (0.0-0.5); ABS Lymphocytes 0.3 10^3/uL (1.0-4.8); ABS Monocytes 0.2 10^3/uL (0.0-1.1); Eosinophil % 4.9 %; Lymphocyte % 18.3 %; Mean Corpuscular Hemoglobin 29.5 pg (27-33); Mean Corpuscular Hgb Conc 33.4 g/dL (31-36); Mean Corpuscular Volume 88.4 fL (80-97); Mean Platelet Volume 10.3 fL (7.5-11.2); Nucleated Red Blood Cells % 0.2 %/100WBC (0.0-0.8); Platelet Count 66 10^3/uL (150-450); Red Blood Count 4.07 10^6/uL (4.06-5.63); Red Cell Distribution Width 16.6 % (12-17); White Blood Count 1.5 10^3/uL (3.6-10.2)
[2023-01-29] MEDS ORDERED: Potassium Chloride LIQUID 20 MEQ/15 ML LIQUID PO ONE (07:43)
[2023-01-29] MEDS: Aspirin EC 81 mg TAB.EC (enteric coated) PO SCH (09:06)
[2023-01-29] MEDS: Pantoprazole VIAL 40 MG VIAL IV SCH (09:06)
[2023-01-29 09:57] LABS: Rapid COVID-19 Molecular Undetected (Undetected)
[2023-01-29] MEDS ORDERED: methylPREDNISolone SOD SUCC 40 mg/ml 1 ml VIAL IV ONE (11:17)
[2023-01-30] MEDS: Enoxaparin 40 MG/0.4 ML SYR SUBCUT SCH (04:55)
[2023-01-30 05:38] LABS: ABS Lymphocytes 0.2 10^3/uL (1.0-4.8); ABS Monocytes 0.3 10^3/uL (0.0-1.1); ABS Neutrophils 2.4 10^3/uL (1.5-7.6); Eosinophil % 0.4 %; Hematocrit 36.9 % (38-53); Hemoglobin 12.2 g/dL (13.2-16.3); Lymphocyte % 7.9 %; Mean Corpuscular Hemoglobin 29.2 pg (27-33); Mean Corpuscular Volume 88.4 fL (80-97); Nucleated Red Blood Cells % 0.2 %/100WBC (0.0-0.8); Red Blood Count 4.17 10^6/uL (4.06-5.63); Red Cell Distribution Width 16.6 % (12-17); White Blood Count 2.9 10^3/uL (3.6-10.2)
[2023-01-30 05:52] LABS: Calcium 8.2 mg/dL (8.6-10.3); Creatinine, Serum 0.82 mg/dL (0.67-1.17); Magnesium 1.8 mg/dL (1.9-2.7); Potassium 3.6 mmol/L (3.5-5.0); eGFR CKD-EPI 93.9 (>60)
[2023-01-30 06:34] LABS: Mean Platelet Volume 10.6 fL (7.5-11.2); Platelet Count 65 10^3/uL (150-450)
[2023-01-30] MEDS ORDERED: KCL 20 MEQ/100 ML IVPREMIX 20 MEQ/100 ML BAG IV ONE (07:58)
[2023-01-30] MEDS ORDERED: Magnesium Sulfate IV 1GM/100ML 1 GM/100 ML BAG IV ONE (07:59)
[2023-01-30] MEDS: Aspirin EC 81 mg TAB.EC (enteric coated) PO SCH (09:57)
[2023-01-30] MEDS: Pantoprazole VIAL 40 MG VIAL IV SCH (09:58)
[2023-01-30] MEDS: Psyllium PAK PO SCH (12:44)
[2023-01-31] MEDS: Enoxaparin 40 MG/0.4 ML SYR SUBCUT SCH (05:04)
[2023-01-31] MEDS: Aspirin EC 81 mg TAB.EC (enteric coated) PO SCH (08:39)
[2023-01-31] MEDS: Pantoprazole VIAL 40 MG VIAL IV SCH (08:39)
[2023-01-31] MEDS: Psyllium PAK PO SCH (08:40)
[2023-01-31] MEDS ORDERED: Magnesium Sulfate 2 gm BAG 2 GM/50 ML BAG IVPB ONE (08:51)
[2023-01-31 09:19] LABS: Calcium 8.7 mg/dL (8.6-10.3); Creatinine, Serum 0.73 mg/dL (0.67-1.17); Hematocrit 37.9 % (38-53); Hemoglobin 12.4 g/dL (13.2-16.3); Magnesium 1.9 mg/dL (1.9-2.7); Mean Corpuscular Hemoglobin 29.2 pg (27-33); Mean Corpuscular Hgb Conc 32.8 g/dL (31-36); Phosphorus 2.2 mg/dL (2.5-5.0); Potassium 3.8 mmol/L (3.5-5.0); Red Blood Count 4.26 10^6/uL (4.06-5.63); Red Cell Distribution Width 16.8 % (12-17); eGFR CKD-EPI 97.3 (>60)
[2023-01-31] MEDS: KCL 20 MEQ/100 ML IVPREMIX 20 MEQ/100 ML BAG IV SCH ×2 (12:01→14:11)
[2023-01-31 14:52] LABS: ABS Lymphocytes 0.4 10^3/uL (1.0-4.8); ABS Monocytes 0.3 10^3/uL (0.0-1.1); ABS Neutrophils 4.2 10^3/uL (1.5-7.6); Eosinophil % 0.5 %; Lymphocyte % 7.4 %; Platelet Count 80 10^3/uL (150-450)
[2023-01-31 16:37] VITALS: BP 135/62
[2023-01-31 20:26] LABS: Calprotectin 161 mcg/g
== END 2023-01-31 16:45 | disposition home or self-care (01) | DRG 392 ==
LOC: ED 10:44 → SUATTDRO 21:26 → EDHOLD 21:26 → MED 22:27
PROVIDERS: ADMIT Internal Medicine; ATTEND Internal Medicine

== ENCOUNTER 2023-08-24 14:38 | Inpatient (IN) ==
[2023-08-24] MEDS: Lactated Ringers 1000 ml BAG 1,000 ML IV ONE (17:10)
[2023-08-24 17:49] LABS: ABS Lymphocytes 0.2 10^3/uL (1.0-4.8); ABS Monocytes 0.7 10^3/uL (0.0-1.1); ABS Neutrophils 10.3 10^3/uL (1.5-7.6); Hematocrit 40.4 % (38-53); Hemoglobin 13.7 g/dL (13.2-16.3); Lymphocyte % 1.5 %; Mean Corpuscular Hemoglobin 30.9 pg (27-33); Mean Corpuscular Hgb Conc 33.9 g/dL (31-36); Mean Corpuscular Volume 91.3 fL (80-97); Mean Platelet Volume 10.4 fL (7.5-11.2); Platelet Count 97 10^3/uL (150-450); Red Blood Count 4.42 10^6/uL (4.06-5.63); Red Cell Distribution Width 19.6 % (12-17); White Blood Count 11.2 10^3/uL (3.6-10.2)
[2023-08-24] MEDS: Ondansetron 4 mg VIAL 2 MG/ML 2 ml VIAL IV ONE (18:42)
[2023-08-24 18:48] LABS: ALT 8 U/L (7-52); Albumin/Globulin Ratio 1.3 (1-3); Alkaline Phosphatase 109 U/L (35-149); Anion Gap 8 mmol/L (2-16); Blood Urea Nitrogen 18 mg/dL (6-24); CO2 Carbon Dioxide 29 mmol/L (22-32); Calcium 7.6 mg/dL (8.6-10.3); Chloride 95 mmol/L (101-111); Creatinine, Serum 0.69 mg/dL (0.67-1.17); Globulin 2.4 g/dL (2-4); Glucose 130 mg/dL (70-100); Magnesium 1.8 mg/dL (1.9-2.7); Sodium 132 mmol/L (135-145); Total Bilirubin 1.6 mg/dL (0.2-1.0); Total Protein 5.4 g/dL (6.4-8.9); eGFR CKD-EPI 98.3 (>60)
[2023-08-24 19:10] LABS: INR 1.32 (0.83-1.13)
[2023-08-24 19:21] LABS: Urine Appearance Clear; Urine Bacteria 1+ /HPF (Absent); Urine Bilirubin 1+ (Negative); Urine Blood Trace (Negative); Urine Color Dark-Yellow; Urine Glucose Trace (Negative); Urine Ketones Negative (Negative); Urine Nitrite Negative (Negative); Urine Protein 1+ (>=30 mg/dL) (Negative); Urine Red Blood Cell Trace(0-2/hpf) /HPF (0-Trace); Urine Squamous Epithelial Cell Present /HPF (Absent); Urine Urobilinogen 4+ (Negative); Urine White Blood Cell 1+(6-10/hpf) /HPF (0-Trace)
[2023-08-24] MEDS: Iodixanol (CONTRAST) 320 MG/ML 100 ML SDV IV ONE (23:27)
[2023-08-25] MEDS ORDERED: cefTRIAXone 1 gm/50 mL D5W 1 GM/50 ML BAG IV ONE (00:07)
[2023-08-25] MEDS: Azithromycin 500 mg/250 ml NS 500 MG/250 ML BAG IVPB ONE (00:54)
[2023-08-25] MEDS: Enoxaparin 40 MG/0.4 ML SYR SUBCUT SCH (01:02)
[2023-08-25] MEDS: Ondansetron 4 mg VIAL 2 MG/ML 2 ml VIAL IV PRN (01:22)
[2023-08-25] MEDS: Acetaminophen IV 1 GM/100ML 1,000 MG/100 ML BAG IV PRN (01:25)
[2023-08-25] MEDS: NS 0.9% 1000 ml BAG 1,000 ML IV SCH (02:25)
[2023-08-25] MEDS: cefTRIAXone 1 gm/50 mL D5W 1 GM/50 ML BAG IV SCH (02:25)
[2023-08-25] MEDS: Magnesium Sulfate 2 gm BAG 2 GM/50 ML BAG IVPB ONE (18:10)
[2023-08-25] MEDS ORDERED: Enoxaparin 40 MG/0.4 ML SYR SUBCUT SCH (21:00)
[2023-08-25] MEDS: Enoxaparin 30 MG/0.3 ML SYR SUBCUT SCH (22:04)
[2023-08-26] MEDS: cefTRIAXone 1 gm/50 mL D5W 1 GM/50 ML BAG IV SCH (01:32)
[2023-08-26] MEDS: Azithromycin 500 mg/250 ml NS 500 MG/250 ML BAG IVPB SCH (02:46)
[2023-08-26 05:36] LABS: Hematocrit 38.1 % (38-53); Hemoglobin 12.8 g/dL (13.2-16.3); Mean Corpuscular Hemoglobin 30.8 pg (27-33); Mean Corpuscular Hgb Conc 33.5 g/dL (31-36); Mean Corpuscular Volume 92.1 fL (80-97); Red Blood Count 4.14 10^6/uL (4.06-5.63); Red Cell Distribution Width 18.8 % (12-17); White Blood Count 7.4 10^3/uL (3.6-10.2)
[2023-08-26 06:13] LABS: ABS Eosinophils 0.1 10^3/uL (0.0-0.5); ABS Lymphocytes 0.3 10^3/uL (1.0-4.8); ABS Monocytes 0.9 10^3/uL (0.0-1.1); ABS Neutrophils 6.1 10^3/uL (1.5-7.6); ABS Nucleated RBC 0.01 10^3/ul; Eosinophil % 1.7 %; Lymphocyte % 3.5 %; Mean Platelet Volume 10.2 fL (7.5-11.2); Nucleated Red Blood Cells % 0.1 %/100WBC (0.0-0.8); Platelet Count 94 10^3/uL (150-450)
[2023-08-26 06:33] LABS: Calcium 7.3 mg/dL (8.6-10.3); Creatinine, Serum 0.71 mg/dL (0.67-1.17); Magnesium 2.1 mg/dL (1.9-2.7); Potassium 3.3 mmol/L (3.5-5.0); eGFR CKD-EPI 97.5 (>60)
[2023-08-26] MEDS: Albuterol HFA INHALER 8 gm MDI INH PRN (12:55)
[2023-08-26] MEDS: Potassium Chlor 20 meq TAB.ER PO ONE (13:06)
[2023-08-26] MEDS: Albuterol HFA INHALER 8 gm MDI INH SCH (19:41)
[2023-08-26] MEDS: Iohexol 350 (CONTRAST) 500 ML MDV IV ONE (21:59)
[2023-08-27 05:46] LABS: Hematocrit 35.1 % (38-53); Hemoglobin 11.8 g/dL (13.2-16.3); Mean Corpuscular Hemoglobin 31.1 pg (27-33); Mean Corpuscular Hgb Conc 33.7 g/dL (31-36); Mean Corpuscular Volume 92.2 fL (80-97); Red Cell Distribution Width 19.2 % (12-17); White Blood Count 4.5 10^3/uL (3.6-10.2)
[2023-08-27 06:24] LABS: Calcium 7.6 mg/dL (8.6-10.3); Creatinine, Serum 0.59 mg/dL (0.67-1.17); Magnesium 1.8 mg/dL (1.9-2.7); Potassium 4.2 mmol/L (3.5-5.0); eGFR CKD-EPI 103.1 (>60)
[2023-08-27 06:44] LABS: ABS Lymphocytes 0.1 10^3/uL (1.0-4.8); ABS Monocytes 0.1 10^3/uL (0.0-1.1); ABS Neutrophils 4.3 10^3/uL (1.5-7.6); Anisocytosis 1+; Large Platelets Present; Lymphocyte % 2.3 %; Nucleated Red Blood Cells % 0.1 %/100WBC (0.0-0.8); Platelet Count 93 10^3/uL (150-450)
[2023-08-27] MEDS: Azithromycin 500 mg/250 ml NS 500 MG/250 ML BAG IVPB SCH (13:27)
[2023-08-28 04:30] LABS: ABS Lymphocytes 0.1 10^3/uL (1.0-4.8); ABS Monocytes 0.3 10^3/uL (0.0-1.1); ABS Neutrophils 4.2 10^3/uL (1.5-7.6); Hematocrit 34.2 % (38-53); Hemoglobin 11.6 g/dL (13.2-16.3); Lymphocyte % 2.8 %; Mean Corpuscular Hemoglobin 31.4 pg (27-33); Mean Corpuscular Hgb Conc 33.8 g/dL (31-36); Mean Corpuscular Volume 92.9 fL (80-97); Mean Platelet Volume 10.3 fL (7.5-11.2); Nucleated Red Blood Cells % 0.1 %/100WBC (0.0-0.8); Platelet Count 104 10^3/uL (150-450); Red Blood Count 3.68 10^6/uL (4.06-5.63); Red Cell Distribution Width 19.6 % (12-17); White Blood Count 4.6 10^3/uL (3.6-10.2)
[2023-08-28 05:09] LABS: Creatinine, Serum 0.58 mg/dL (0.67-1.17); Magnesium 1.7 mg/dL (1.9-2.7); Potassium 3.9 mmol/L (3.5-5.0); eGFR CKD-EPI 103.6 (>60)
[2023-08-28] MEDS: Magnesium Sulfate 2 gm BAG 2 GM/50 ML BAG IVPB ONE (08:09)
[2023-08-29] MEDS: Metoclopramide 5 MG/ML VIAL (10 mg) IV PRN (08:12)
[2023-08-29 08:29] LABS: ABS Lymphocytes 0.2 10^3/uL (1.0-4.8); ABS Monocytes 0.8 10^3/uL (0.0-1.1); ABS Neutrophils 7.7 10^3/uL (1.5-7.6); ABS Nucleated RBC 0.01 10^3/ul; Eosinophil % 0.5 %; Hematocrit 38.8 % (38-53); Lymphocyte % 2.6 %; Mean Corpuscular Hemoglobin 31.1 pg (27-33); Mean Corpuscular Hgb Conc 33.4 g/dL (31-36); Mean Corpuscular Volume 92.9 fL (80-97); Mean Platelet Volume 9.6 fL (7.5-11.2); Nucleated Red Blood Cells % 0.1 %/100WBC (0.0-0.8); Platelet Count 128 10^3/uL (150-450); Red Blood Count 4.17 10^6/uL (4.06-5.63); Red Cell Distribution Width 19.3 % (12-17); White Blood Count 8.8 10^3/uL (3.6-10.2)
[2023-08-29 08:38] LABS: Calcium 8.3 mg/dL (8.6-10.3); Creatinine, Serum 0.57 mg/dL (0.67-1.17); Magnesium 1.7 mg/dL (1.9-2.7); Potassium 3.6 mmol/L (3.5-5.0); eGFR CKD-EPI 104.2 (>60)
[2023-08-29 10:38] LABS: Albumin 2.7 g/dL (3.2-5.2); Direct Bilirubin 0.1 mg/dL (0.03-0.18); Globulin 2.7 g/dL (2-4); Indirect Bilirubin 0.4 mg/dL (0.3-1.0); Total Bilirubin 0.5 mg/dL (0.2-1.0); Total Protein 5.4 g/dL (6.4-8.9)
[2023-08-29] MEDS: Mometasone 220 MCG MDI INH SCH (12:15)
[2023-08-29] MEDS: Magnesium Hydroxide LIQ 30 ML UDC PO PRN (14:55)
[2023-08-29] MEDS ORDERED: Senna TAB 8.6 mg TAB PO PRN (18:41)
[2023-08-29] MEDS: SPIRIVA Respimat (tiotropium) 2.5 mcg/inh Inhaler INH SCH (20:19)
[2023-08-30 04:21] LABS: Hematocrit 37.8 % (38-53); Hemoglobin 12.7 g/dL (13.2-16.3); Mean Corpuscular Volume 92.9 fL (80-97); Red Blood Count 4.07 10^6/uL (4.06-5.63); White Blood Count 7.8 10^3/uL (3.6-10.2)
[2023-08-30 04:22] LABS: ABS Eosinophils 0.1 10^3/uL (0.0-0.5); ABS Lymphocytes 0.3 10^3/uL (1.0-4.8); ABS Monocytes 0.6 10^3/uL (0.0-1.1); ABS Neutrophils 6.8 10^3/uL (1.5-7.6); Eosinophil % 1.2 %; Lymphocyte % 3.3 %; Mean Corpuscular Hemoglobin 31.1 pg (27-33); Mean Corpuscular Hgb Conc 33.4 g/dL (31-36); Mean Platelet Volume 9.7 fL (7.5-11.2); Platelet Count 118 10^3/uL (150-450); Red Cell Distribution Width 19.3 % (12-17)
[2023-08-30 05:16] LABS: Calcium 7.6 mg/dL (8.6-10.3); Creatinine, Serum 0.51 mg/dL (0.67-1.17); Magnesium 1.8 mg/dL (1.9-2.7); Potassium 3.6 mmol/L (3.5-5.0); eGFR CKD-EPI 107.7 (>60)
[2023-08-30] MEDS: Magnesium Sulfate 2 gm BAG 2 GM/50 ML BAG IVPB ONE (12:06)
[2023-08-30] MEDS: Albuterol/Ipratropium NEB.SOL (2.5/0.5 MG) 3 ML NEB.SOLN INH SCH (19:33)
[2023-08-31 05:20] LABS: ABS Lymphocytes 0.3 10^3/uL (1.0-4.8); ABS Monocytes 0.3 10^3/uL (0.0-1.1); ABS Neutrophils 8.4 10^3/uL (1.5-7.6); Eosinophil % 0.3 %; Hematocrit 36.8 % (38-53); Hemoglobin 12.1 g/dL (13.2-16.3); Lymphocyte % 2.9 %; Mean Corpuscular Hemoglobin 30.5 pg (27-33); Mean Corpuscular Hgb Conc 32.8 g/dL (31-36); Mean Corpuscular Volume 93.2 fL (80-97); Mean Platelet Volume 9.5 fL (7.5-11.2); Platelet Count 111 10^3/uL (150-450); Red Blood Count 3.95 10^6/uL (4.06-5.63); Red Cell Distribution Width 19.5 % (12-17); White Blood Count 9.1 10^3/uL (3.6-10.2)
[2023-08-31 05:54] LABS: Calcium 7.8 mg/dL (8.6-10.3); Creatinine, Serum 0.57 mg/dL (0.67-1.17); Magnesium 2.2 mg/dL (1.9-2.7); Potassium 3.7 mmol/L (3.5-5.0); eGFR CKD-EPI 104.2 (>60)
[2023-08-31] MEDS: Polyethylene Glycol 3350 17 GM PACKET PO SCH (15:46)
[2023-08-31] MEDS: Morphine 2 MG/ML SYRINGE IV ONE (15:48)
[2023-08-31 17:12] LABS: Body Fluid Mono 68 %; Body Fluid Total Cells Counted 200
[2023-08-31 17:13] LABS: Body Fluid Appearance Clear; Body Fluid Color Yellow; Body Fluid Source Pleural Fluid
[2023-08-31 17:14] LABS: Body Fluid Total Nucleated 172 /mcL
[2023-08-31] MEDS: Senna TAB 8.6 mg TAB PO SCH (20:32)
[2023-09-01 07:24] LABS: Hematocrit 34.1 % (38-53); Hemoglobin 11.6 g/dL (13.2-16.3); Mean Corpuscular Hemoglobin 31.6 pg (27-33); Mean Corpuscular Volume 92.8 fL (80-97); Red Blood Count 3.67 10^6/uL (4.06-5.63); Red Cell Distribution Width 19.1 % (12-17); White Blood Count 6.5 10^3/uL (3.6-10.2)
[2023-09-01 07:45] LABS: ABS Lymphocytes 0.3 10^3/uL (1.0-4.8); ABS Monocytes 0.3 10^3/uL (0.0-1.1); ABS Neutrophils 5.9 10^3/uL (1.5-7.6); Eosinophil % 0.5 %; Lymphocyte % 4.2 %; Nucleated Red Blood Cells % 0.1 %/100WBC (0.0-0.8); Platelet Count 95 10^3/uL (150-450)
[2023-09-01 12:18] LABS: ABS Lymphocytes 0.2 10^3/uL (1.0-4.8); ABS Monocytes 0.3 10^3/uL (0.0-1.1); ABS Neutrophils 7.5 10^3/uL (1.5-7.6); ABS Nucleated RBC 0.01 10^3/ul; Eosinophil % 0.4 %; Hematocrit 36.4 % (38-53); Hemoglobin 12.1 g/dL (13.2-16.3); Lymphocyte % 2.4 %; Mean Corpuscular Hemoglobin 31.1 pg (27-33); Mean Corpuscular Hgb Conc 33.2 g/dL (31-36); Mean Corpuscular Volume 93.6 fL (80-97); Mean Platelet Volume 9.5 fL (7.5-11.2); Nucleated Red Blood Cells % 0.1 %/100WBC (0.0-0.8); Platelet Count 90 10^3/uL (150-450); Red Blood Count 3.88 10^6/uL (4.06-5.63); Red Cell Distribution Width 19.6 % (12-17)
[2023-09-01 12:21] LABS: Calcium 8.1 mg/dL (8.6-10.3); Creatinine, Serum 0.64 mg/dL (0.67-1.17); Magnesium 1.9 mg/dL (1.9-2.7); Potassium 3.6 mmol/L (3.5-5.0); eGFR CKD-EPI 100.6 (>60)
[2023-09-01] MEDS: Albuterol/Ipratropium NEB.SOL (2.5/0.5 MG) 3 ML NEB.SOLN INH SCH (14:28)
[2023-09-02 05:53] LABS: ABS Lymphocytes 0.2 10^3/uL (1.0-4.8); ABS Monocytes 0.2 10^3/uL (0.0-1.1); ABS Neutrophils 4.4 10^3/uL (1.5-7.6); Eosinophil % 0.6 %; Hematocrit 32.9 % (38-53); Hemoglobin 10.9 g/dL (13.2-16.3); Lymphocyte % 4.8 %; Mean Corpuscular Hemoglobin 30.9 pg (27-33); Mean Corpuscular Hgb Conc 33.2 g/dL (31-36); Mean Corpuscular Volume 93.2 fL (80-97); Mean Platelet Volume 9.6 fL (7.5-11.2); Nucleated Red Blood Cells % 0.1 %/100WBC (0.0-0.8); Platelet Count 76 10^3/uL (150-450); Red Blood Count 3.53 10^6/uL (4.06-5.63); Red Cell Distribution Width 19.7 % (12-17); White Blood Count 4.9 10^3/uL (3.6-10.2)
[2023-09-02 06:41] LABS: Calcium 7.9 mg/dL (8.6-10.3); Creatinine, Serum 0.65 mg/dL (0.67-1.17); Magnesium 1.9 mg/dL (1.9-2.7); Potassium 3.4 mmol/L (3.5-5.0); eGFR CKD-EPI 100.1 (>60)
[2023-09-02] MEDS: Potassium Chlor 20 meq TAB.ER PO ONE (08:28)
[2023-09-02] MEDS: Morphine 2 MG/ML SYRINGE IV PRN (12:07)
[2023-09-02] MEDS: Iodixanol (CONTRAST) 320 MG/ML 100 ML SDV IV ONE (14:25)
[2023-09-03 06:18] LABS: ABS Eosinophils 0.1 10^3/uL (0.0-0.5); ABS Lymphocytes 0.3 10^3/uL (1.0-4.8); ABS Monocytes 0.3 10^3/uL (0.0-1.1); ABS Neutrophils 3.4 10^3/uL (1.5-7.6); Eosinophil % 1.9 %; Hematocrit 35.2 % (38-53); Hemoglobin 11.8 g/dL (13.2-16.3); Lymphocyte % 6.7 %; Mean Corpuscular Hemoglobin 31.6 pg (27-33); Mean Corpuscular Hgb Conc 33.5 g/dL (31-36); Mean Corpuscular Volume 94.2 fL (80-97); Mean Platelet Volume 9.2 fL (7.5-11.2); Nucleated Red Blood Cells % 0.1 %/100WBC (0.0-0.8); Platelet Count 67 10^3/uL (150-450); Red Blood Count 3.74 10^6/uL (4.06-5.63); Red Cell Distribution Width 19.8 % (12-17); White Blood Count 4.1 10^3/uL (3.6-10.2)
[2023-09-03 06:19] LABS: Creatinine, Serum 0.62 mg/dL (0.67-1.17); Magnesium 1.9 mg/dL (1.9-2.7); Potassium 3.9 mmol/L (3.5-5.0); eGFR CKD-EPI 101.6 (>60)
[2023-09-04] MEDS ORDERED: Azithromycin 500 mg/250 ml NS 500 MG/250 ML BAG IVPB SCH (01:00)
[2023-09-04 06:17] LABS: Calcium 7.9 mg/dL (8.6-10.3); Creatinine, Serum 0.76 mg/dL (0.67-1.17); Potassium 4.1 mmol/L (3.5-5.0); eGFR CKD-EPI 95.5 (>60)
[2023-09-04 06:24] LABS: ABS Eosinophils 0.1 10^3/uL (0.0-0.5); ABS Lymphocytes 0.3 10^3/uL (1.0-4.8); ABS Monocytes 0.3 10^3/uL (0.0-1.1); ABS Neutrophils 2.8 10^3/uL (1.5-7.6); ABS Nucleated RBC 0.01 10^3/ul; Eosinophil % 1.8 %; Hematocrit 34.8 % (38-53); Hemoglobin 11.7 g/dL (13.2-16.3); Lymphocyte % 7.8 %; Mean Corpuscular Hemoglobin 31.3 pg (27-33); Mean Corpuscular Hgb Conc 33.5 g/dL (31-36); Mean Corpuscular Volume 93.3 fL (80-97); Mean Platelet Volume 10.2 fL (7.5-11.2); Nucleated Red Blood Cells % 0.2 %/100WBC (0.0-0.8); Platelet Count 71 10^3/uL (150-450); Red Blood Count 3.73 10^6/uL (4.06-5.63); Red Cell Distribution Width 20.3 % (12-17); White Blood Count 3.5 10^3/uL (3.6-10.2)
[2023-09-04 12:06] LABS: Lactate Dehydrogenase, BF 56 U/L
[2023-09-04 12:07] LABS: Albumin, BF 0.9 g/dL; Fluid Type, Albumin PLEURAL; Fluid Type, Protein, Total PLEURAL; Glucose, BF 135 mg/dL; Total Protein, BF 1.4 g/dL
[2023-09-04 14:28] VITALS: BP 113/62
[2023-09-07 14:55] LABS: HIT ELISA 0.061 OD (<0.400); Heparin PF4 Antibody Interp Negative (Negative)
== END 2023-09-04 17:30 | disposition home or self-care (01) | DRG 193 ==
LOC: ED 14:38 → SUATTDRO 08-25 00:55 → EDHOLD 08-25 00:55 → MED 08-25 03:47
PROVIDERS: ADMIT Hospitalist; ATTEND Internal Medicine